=== PATIENT | female | born 1960 | race Caucasian/White ===

== ENCOUNTER 2016-04-17 16:16 | Inpatient (IN) | payer MEDICARE, MEDICAID ==
[2016-04-17 16:43] LABS: Hematocrit 41.7 % (37.0-47.0); Hemoglobin 14.3 gm/dL (12.5-16.0); Mean Cell Volume 87.4 fl (78-100); Mean Corpuscular Hgb Conc 34.3 g/dl (32-36); Mean Platelet Volume 9.6 fl (6.0-9.5); Neutrophil # 4.5 K/mm3 (1.3-6.0); Neutrophil % 61.9 % (42-75.0); Platelet Count 194 K/mm3 (150-450); Red Blood Count 4.77 M/mm3 (4.2-5.4); Red Cell Distribution Width 12.2 % (11.5-14.0); White Blood Count 7.3 K/mm3 (4.0-10.5)
[2016-04-17 16:58] LABS: Albumin * 3.8 gm/dl (3.4-5.0); Anion Gap 15.7 mmol/L (6.8-13.8); BUN/Creatinine Ratio 9.9 (9.0-21.6); Bilirubin, Total 0.3 mg/dL (0.0-1.1); Ca. Corrected For Albumin 9.1 mg/dL (8.4-10.2); Calcium * 9.3 mg/dL (7.9-10.9); Carbon Dioxide 25.2 mmol/L (24-32.6); Potassium 3.9 mmol/L (3.4-4.6); Total Protein 7.1 gm/dL (6.2-8.2)
[2016-04-17] MEDS ORDERED: KETOROLAC TROMETHAMINE 30 MG/ML VIAL IV ONE (17:38)
--- NOTE | 2016-04-17 17:42 | ERNOTE ---
<Elif Valdez - Last Filed: 04/17/16 20:00> Abdominal HPI - General Chief Complaint: Abdominal Pain Time Seen by Provider: 04/17/16 17:28 Source: patient, family Exam Limitations: no limitations - Immun/Allergies/Home Medications Immunizatons: IMMUNIZATION HX Immunizations Up to Date Yes History of Influenza Vaccine No Hx Pneumococcal Vaccination No Allergies/Adverse Reactions: Allergies levofloxacin [From Levaquin] Allergy (Verified 04/17/16 16:26) Hives pseudoephedrine HCl [From Sudafed] Adverse Reaction (Mild, Verified 04/17/16 16: 26) NEVER SLEEP Sulfa (Sulfonamide Antibiotics) Adverse Reaction (Mild, Verified 04/17/16 16:26) "GO ON A HIGH" Home Medications: HOME MEDICATIONS Atorvastatin Calcium [Lipitor] 10 mg PO HS 12/13/14 [Last Taken Unknown] Ferrous Sulfate 325 mg PO DAILY 12/13/14 [Last Taken Unknown] Acetaminophen [Tylenol] 1,000 mg PO Q6H PRN 05/25/15 [Last Taken Unknown] Sodium Chloride/Aloe Vera [[place] Saline Nasal Gel] 1 appl VG PRN PRN 06/25/15 [ Last Taken Unknown] Zinc Oxide 1 appl TP PRN PRN 06/25/15 [Last Taken Unknown] Ondansetron [Zofran Odt] 4 mg PO Q8H PRN #40 tab.rapdis 07/02/15 [Last Taken Unknown] Oxybutynin Chloride [Ditropan] 5 mg PO PRN PRN 04/18/16 [Last Taken Unknown] Saccharomyces Boulardii [Florastor] 250 mg PO TID 04/18/16 [Last Taken Unknown] - History of Present Illness Narrative: Patient started to have RLQ pain yesterday evening. She then started to have diarrhea and the abdominal pain resolved after about four hours and restarted this afternoon around 15:00, frequent watery bowel movements continue, nausea, no vomiting. Last year she was diagnosed with bladder cancer which was removed at [facility], last chris she had a urine leak from her bladder and had three different surgeries within a short time, no follow up for her cancer since. As far as she knows she still has her appendix Date (Duration): 04/16/16 Time (Timing): 18:00 Timing: intermittent Quality: severe Activities at Onset: none Associated Symptoms: Absent: diarrhea-gross blood, fever/chills, shortness of breath Review of Systems - Review of Systems Constitutional: Absent: recent illness, fever, chills Respiratory: Absent: shortness of breath, cough Cardiology: Absent: chest pain Gastrointestinal/Abdominal: Present: See HPI, nausea, diarrhea, abdominal pain. Absent: vomiting Genitourinary: Present: decreased urinary output Musculoskeletal: Absent: back pain Skin: Absent: rash Neurological: Absent: weakness, numbness - Patient's Past Medical History Patient History - Medical: Renal Failure, UTI'S, Other Patient History - Cardiac/Respiratory: No pertinent hx Patient History - Cancer: Bladder, Cervical Patient History - Surgical Procedures: Hysterectomy, Other, Urology Patient History - Other: None LMP (females 10-50): other - Family History Mother Family History - Medical: Father Family History - Medical: History Unknown, Diabetes Type 2 Insulin Dependent Family History - Cardiac/Respiratory: No pertinent hx - Social History Living Situations: home Abuse History: No History of abuse Psych History: No pertinent hx Alcohol Use: none Drug Use: none - Immunizations Immunizations Up to Date: Yes Hx Pneumococcal Vaccination: No History of Influenza Vaccine: No Physical Exam - Physical Exam General Appearance: Present: wd/wn, alert, mild distress Respiratory: Present: no respiratory distress, normal breath sounds, no accessory muscle use, lungs clear Cardiovascular/Chest: Present: regular rate, rhythm, no murmur Gastrointestinal/Abdominal: Present: soft, tenderness - mildly thoughout, max in RLQ and suprapubic Back Exam: Present: normal inspection, no CVA tenderness Extremity Exam: Present: no edema Neurological Exam: Present: alert, oriented, normal mood/affect Skin Exam: Present: normal color, warm/dry ED Progress - Results and Orders Patient's Lab Results:: I have reviewed the patient's lab results. - Vital Signs Patient's Vital Signs:: I have reviewed the patient's vital signs. Vital Signs: Vital Signs 04/17/16 16:20 Temperature 37.8 C H Pulse Rate 85 Respiratory 16 Rate Blood Pressure 146/95 O2 Sat by Pulse 97 Oximetry - X-Ray X-Ray #1 X-Ray: abdomen - dilated bowel loops, no air fluids levels Interpretation: Interp. by me - Progress/Reassessment Chief Complaint: Abdominal Pain Progress Note-Subjective: 04/17/16 18:57 pain better after toradol (08/21) explained test results - Transfer of Care Physician Sign Out: Elif Valdez Receiving Physician: Speedy Linder Departure - Departure Clinical Impression: Hematuria, Small bowel obstruction Disposition: [facility] Condition: Fair <Speedy Linder - Last Filed: 04/19/16 23:14> Abdominal HPI - Immun/Allergies/Home Medications Immunizatons: IMMUNIZATION HX Immunizations Up to Date Yes History of Influenza Vaccine No Hx Pneumococcal Vaccination No ED Progress - Results and Orders Patient's Lab Results:: I have reviewed the patient's lab results. Results and Orders: Laboratory Tests 04/17/16 04/17/16 04/17/16 16:26 16:36 16:36 WBC 7.3 Hgb 14.3 Hct 41.7 Plt Count 194 Sodium 143 H Potassium 3.9 Chloride 106 Carbon Dioxide 25.2 Anion Gap 15.7 H BUN 15 Creatinine 1.51 H D Est GFR (Non-Af Amer) 38 L D BUN/Creatinine Ratio 9.9 Random Glucose 108 Calcium 9.3 Calcium Adj for Albumin 9.1 Total Bilirubin 0.3 AST 14 ALT 31 Alkaline Phosphatase 78 Total Protein 7.1 Albumin 3.8 Amylase 60 Lipase 116 Urine Color Yellow Urine Appearance Clear Urine pH 5.5 Ur Specific [place] 1.025 Urine Protein Negative Urine Glucose (UA) Negative Urine Ketones Negative Urine Blood 250 H Urine Nitrate Negative Urine Bilirubin Negative Urine Urobilinogen Normal Ur Leukocyte Esterase Negative Urine RBC >50 H Urine WBC Trace H Ur Epithelial Cells 0-5 Urine Bacteria None seen Urine Culture Comments No culture indicated - Vital Signs Vital Signs: Vital Signs 04/17/16 04/17/16 04/17/16 16:20 18:33 19:18 Temperature 37.8 C H Pulse Rate 85 83 94 Respiratory 16 20 17 Rate Blood Pressure 146/95 115/69 120/71 O2 Sat by Pulse 97 95 93 Oximetry - CT/Ultrasound CT/Ultrasound Narrative: CT abd/ pelvis with IV and oral contrast. Bilateral atelectasis, free perihepatic fluid. Upper abdominal organs normal. numberoud distended loops of small bowel some demonstrating wall thickening and inflammatory change. focal narrowing and a small bowel feces sign within the RLQ probably terminal ileum. Possibility of early bowel obstruction cannot be excluded. Free fluid within the pelvis. Circumferential bladder wall thickening. No free air. appendix is normal. - Progress/Reassessment Progress Note-Subjective: 04/17/16 20:43 Pt having more pain, 1 mg hydromorphone ordered. 04/17/16 22:44 spoke with Margarito WHITMOREP hospitalist, she agrees with admit.
--- OUTSIDE RECORDS SUMMARY | 2016-04-17 17:46 | XMS REPORT | Continuity of Care Document ---
:1960 Author Organization [facility] [place] [address] Care Team Providers Name Role Phone Unavailable Primary Care Provider Unavailable Source Comments This disclosure is being made pursuant to the [employer] program and maynot contain all information available regarding this patient.[facility] Active Allergies and Adverse Reactions Not on File Current Medications Be aware that medications may not be up to date as of this document. Alwaysverify current medications with the patient. Not on file Active Problems Not on file Social History Tobacco Use Types Packs/Day Years Used Date Never Assessed Plan of Care Health Maintenance Due Date Last Done Comments Tetanus/Pertussis (1 - Tdap) 1981 Pap Smear 06/16/1983 Mammogram 2002 Colonoscopy 2012 Well Adult Visit 2012 Retired-INFLUENZA VACCINE 10/13/2014 Results from Last 3 Months Not on file
--- OUTSIDE RECORDS SUMMARY | 2016-04-17 17:46 | XMS REPORT | Continuity of Care Document ---
:1960 Author Organization [facility] ([facility]) [place] [address] Phone [phone] Care Team Providers Name Role Phone Jorge Marshall Primary Care Provider [phone] Source Comments This disclosure is being made pursuant to the Care Everywhere program, applicable federal and state laws, and may not contain all informaitonavailable regarding this patient.[facility] ([facility]) Active Allergies and Adverse Reactions Allergen Noted Date Severity Reactions Comments Levofloxacin 07/22/2015 OTHER cramps Pseudoephedrine Hcl 10/16/2008 Agitation Sulfadoxine Dizziness Current Medications Prescription Sig. Disp. Refills Start Date End Date Status ferrous sulfate 325 mg Take 650 mg by Active (65 mg iron) tablet mouth daily. atorvastatin 10 mg Take 10 mg by Active tablet mouth every evening. acetaminophen 500 mg Take 1,000 mg by Active tablet mouth every 6 hours as needed. docusate 100 mg capsule Take 1 capsule 60 capsule 0 06/24/2015 Active (100 mg total) by mouth 2 times daily as needed. oxybutynin 5 mg tablet Take 1 tablet (5 90 tablet 3 06/24/2015 Active mg total) by mouth 3 times daily as needed. 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 She received chemotherapy and radiation. She completed 4500 cGy to the pelvis on 10/16/02. She then had two tandem and ovoid placements, completing this in 11/2002. Resolved Problems Problem Noted Date Resolved Date Peritonitis 06/28/2015 01/07/2016 Pyelonephritis 06/22/2015 01/07/2016 Perforation of bladder 06/10/2015 01/07/2016 Lesion of bladder 06/27/2013 01/07/2016 Vaginal discomfort 10/15/2012 01/07/2016 Headache(784.0) 01/07/2007 10/16/2008 Social History Tobacco Use Types Packs/Day Years Used Date Former Smoker 1.5 5 Quit: 02/23/1994 Smokeless Tobacco: Never Used Tobacco Cessation:Counseling Given: Yes Comments:Quit 1994 Alcohol Use Drinks/Week oz/Week Comments No Last Filed Vital Signs Vital Sign Reading Time Taken Blood Pressure 121/81 01/03/2016 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 Pulse 86 01/03/2016 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 Temperature 36.1 C (97 F) 01/03/2016 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 Respiratory Rate 22 07/22/2015 2:43 PM CDT Height 1.626 m (5' 4") 06/10/2015 6:20 PM CDT Weight 59.3 kg (130 lb 11.7 oz) 07/22/2015 4:56 PM CDT Body Mass Index 22.43 07/22/2015 4:56 PM CDT Oxygen Saturation 97% 07/22/2015 2:43 PM CDT Plan of Care Patient Goal Type Goal Diet Increase water intake Date Type Specialty Providers Description 09/25/2016 Appointment Urology Kvng Lucio MD Subj: Appointment Scheduled [address] [phone] (Fax) Health Maintenance Due Date Last Done Comments HCV Screening 1960 Hepatitis B Vaccine (1 of 3 1960 - Primary Series) Tdap Vaccine 1973 MMR Vaccine 1980 Td Vaccine 1980 Pneumococcal Vaccine (1 of 3 1981 - PCV13) Mammogram 01/10/2008 01/09/2007 FOBT Colon Cancer Screening 2012 03/07/2010 Cervical Cancer Screening 12/30/2012 12/30/2009, Additional history exists 10/16/2008, 10/31/2007 Colonoscopy 04/12/2014 04/12/2004 Lipid Disorder Screening 02/23/2015 02/23/2010 Influenza Vaccine: Seasonal 09/13/2015 (#1) Results from Last 3 Months Not on file
[2016-04-17] MEDS ORDERED: KETOROLAC TROMETHAMINE 30 MG/ML VIAL ONE (17:48)
[2016-04-17 18:12] LABS: Urine Appearance Clear; Urine Bacteria None Seen; Urine Bilirubin Negative (NEGATIVE); Urine Blood 250 /ul (NEGATIVE); Urine Color Yellow; Urine Ketone Negative (NEGATIVE); Urine Nitrite Negative (NEGATIVE); Urine Protein Negative (NEGATIVE); Urine RBC >50 /hpf (0-5); Urine Specific Gravity 1.025 SP.GR. (1.005-1.010); Urine Urobilinogen Normal (NORMAL); Urine WBC TRACE /hpf (0-5); Urine pH 5.5 pH (5.0-7.0)
[2016-04-17] MEDS ORDERED: NORMAL SALINE 1,000 ML IV ONE (18:56)
[2016-04-17] MEDS ORDERED: ONDANSETRON HCL/PF 2 MG/ML VIAL IV ONE (18:56)
[2016-04-17] MEDS ORDERED: DIATRIZOATE MEGLU/DIATRIZO SOD 30 ML BTL PO ONE ×2 (18:56)
[2016-04-17] MEDS ORDERED: HYDROmorphone HCL 1 MG/ML DISP.SYRIN IV ONE ×3 (18:56→22:39)
[2016-04-17] MEDS ORDERED: DIATRIZOATE MEGLU/DIATRIZO SOD 30 ML BTL ONE (18:58)
[2016-04-17] MEDS ORDERED: ONDANSETRON HCL/PF 2 MG/ML VIAL ONE (19:00)
[2016-04-17] MEDS ORDERED: HYDROmorphone HCL 1 MG/ML DISP.SYRIN ONE ×3 (19:00→22:39)
--- OUTSIDE RECORDS SUMMARY | 2016-04-17 22:38 | XMS REPORT | Continuity of Care Document ---
:1960 Author Organization [facility] ([facility]) [place] [address] Phone [phone] Care Team Providers Name Role Phone Jorge Marshall Primary Care Provider [phone] Source Comments This disclosure is being made pursuant to the Care Everywhere program, applicable federal and state laws, and may not contain all informaitonavailable regarding this patient.[facility] ([facility]) Active Allergies and Adverse Reactions Allergen Noted [...] Taken Blood Pressure 121/81 01/03/2016 12:47 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
--- OUTSIDE RECORDS SUMMARY | 2016-04-17 22:38 | XMS REPORT | Continuity of Care Document ---
:1960 Author Organization [facility] [place] [address] Care Team Providers Name Role Phone Unavailable Primary Care Provider Unavailable Source Comments This disclosure is being made pursuant to the [employer] program and maynot contain all information available regarding this patient.[facility] Active Allergies and Adverse Reactions Not on [...] (1 - Tdap) 1981 Pap Smear 06/16/1983 Colonoscopy 2012 Mammogram 2012 Well Adult Visit 2012 Influenza Immunization (#1) 2015 Results from Last 3 Months Not on file
[2016-04-17] MEDS ORDERED: ONDANSETRON HCL/PF 2 MG/ML VIAL IV PRN (22:57)
[2016-04-17] MEDS ORDERED: DEXTROSE 5%-NORMAL SALINE 1,000 ML IV SCH (23:00)
[2016-04-18] MEDS: PANTOPRAZOLE SODIUM 40 MG in NORMAL SALINE 100 ML IV SCH ×2 (00:44→23:13)
--- NOTE | 2016-04-18 00:54 | HP ---
Chief Complaint - Chief Complaint Date of Service: 04/18/16 Time of Service: 00:19 Chief Complaint: Abdominal pain History of Present Illness: 55 years old female adm to the hospital with reports of abdominal pain that began yesterday, accompanied with nausea and diarrhea that have been self resolved before coming to the hospital. pt stated while in ER she had 1 episode emesis. PMH significant for bladder and cervical cancer, radiation colitis, hypothyroidism, UTI, perforated bladder, ULISES, sepsis and c-diff. in ER CT ABD: findings suggestive for diffused enteritis and possibility of early obstruction. Free intra-abdominal and pelvic fluid. no free air or abscess. Plan of care discussed with pt she verbalized understanding and agrees. - Patient's Past Medical History Patient History - Medical: Renal Failure, UTI'S, Other - radiation colitis Patient History - Cardiac/Respiratory: No pertinent hx, Hyperlipidemia Patient History - Cancer: Bladder, Cervical, Radiation Therapy Patient History - Surgical Procedures: Hysterectomy, Other - 06/27 bladder repair, BL nephrostomy tubes, Urology Patient History - Other: None LMP (females 10-50): Menopausal - Family History Mother Family History - Medical: , Diabetes Type 2 Insulin Dependent Father Family History - Medical: Diabetes Type 2 Insulin Dependent Family History - Cardiac/Respiratory: No pertinent hx, Hypertension Family History - Cancer: Prostate - Social History Living Situations: alone Abuse History: No History of abuse Psych History: No pertinent hx Smoking Status: Former smoker Have you smoked in the past 12 months: No Do you dip or chew tobacco: No Smoking Stop Date: 02/13/96 Patient requests Smoking Cessation Consult: No Initiate information on Smoking Cessation: No Alcohol Use: none Drug Use: none - Immunizations Immunizations Up to Date: Yes Hx Pneumococcal Vaccination: No History of Influenza Vaccine: No Review Of Systems (GEN) - Review of Systems Generalized/Overall Review: Present: No Symptoms Reported EENTM: Present: No Symptoms Reported Respiratory: Present: No Symptoms Reported Cardiac: Present: No Symptoms Reported Abdominal: Present: Nausea, Vomiting, Abdominal Pain, Diarrhea Genitourinary: Present: Incontinent Musculoskeletal: Present: Other - muscle weakness Neurological: Present: Weakness Skin: Present: No Symptoms Reported Endocrine: Present: No Symptoms Reported Allergies/Adverse Reactions: Allergies Allergy/AdvReac Type Severity Reaction Status Date / Time levofloxacin [From Levaquin] Allergy Hives Verified 04/17/16 16:26 pseudoephedrine HCl AdvReac Mild NEVER SLEEP Verified 04/17/16 16:26 [From Sudafed] Sulfa (Sulfonamide AdvReac Mild "GO ON A Verified 04/17/16 16:26 Antibiotics) HIGH" Home Medications: HOME MEDICATIONS Atorvastatin Calcium [Lipitor] 10 mg PO HS 12/13/14 [Last Taken Unknown] Ferrous Sulfate 325 mg PO DAILY 12/13/14 [Last Taken Unknown] Acetaminophen [Tylenol] 1,000 mg PO Q6H PRN 05/25/15 [Last Taken Unknown] Docusate Sodium [Colace] 100 mg PO BID 06/25/15 [Last Taken Unknown] Sodium Chloride/Aloe Vera [[place] Saline Nasal Gel] 1 appl VG PRN PRN 06/25/15 [ Last Taken Unknown] Zinc Oxide 1 appl TP TID 06/25/15 [Last Taken Unknown] Hydromorphone HCl [Dilaudid] 2 mg PO Q4H PRN #40 tablet 07/02/15 [Last Taken Unknown] Ondansetron [Zofran Odt] 4 mg PO Q8H PRN #40 tab.rapdis 07/02/15 [Last Taken Unknown] Oxybutynin Chloride [Ditropan] 5 mg PO TID PRN #90 tablet 07/02/15 [Last Taken Unknown] Saccharomyces Boulardii [Florastor] 250 mg PO BID #60 capsule 07/02/15 [Last Taken Unknown] Fluticasone Propionate [24 Hour Allergy Relief] 15.8 ml NS 10/06/15 [Last Taken Unknown] Exam - Exam Vital Signs: Vital Signs - Last Taken Temp 36.5 C 04/17/16 22:55 Pulse 77 04/17/16 22:55 Resp 18 04/17/16 22:55 BP 118/69 04/17/16 22:55 Pulse Ox 92 04/17/16 22:55 Constitutional: Present: Alert, Oriented x3, Cooperative, Well developed, No distress, Young, Looks Older than stated age ENT Exam: Present: moist mucous membranes Eye Exam: bilateral eye: PERRL Neck: Present: full range of motion Back Exam: Present: no CVA tenderness Breasts: Present: Exam deferred Respiratory: Present: chest non-tender, lungs clear, normal breath sounds, no respiratory distress Cardiovascular/Chest: Present: normal peripheral pulses, regular rate, rhythm, no chest tenderness, no edema Peripheral Pulses: dorsalis-pedis (R): 2+, dorsalis-pedis (L): 2+ Abdomen: Present: soft, nontender, nondistended, no rebound tenderness, other - hypoactive /Rectal: Present: Exam deferred Extremity: Present: normal range of motion, non-tender, normal inspection, no pedal edema, no calf tenderness Skin Exam: Present: normal color, warm/dry, no cyanosis Neurologic: Present: oriented x 3 Appearance: Present: appropriate appearance Eye contact: Present: cooperative, good eye contact Thoughts: Present: normal thought pattern Diagnostic Studies: Laboratory Results WBC 7.3 K/mm3 (4.0-10.5) 04/17/16 16:36 RBC 4.77 M/mm3 (4.2-5.4) 04/17/16 16:36 Hgb 14.3 gm/dL (12.5-16.0) 04/17/16 16:36 Hct 41.7 % (37.0-47.0) 04/17/16 16:36 MCV 87.4 fl (78-100) 04/17/16 16:36 MCH 30.0 pg (27-31) 04/17/16 16:36 MCHC 34.3 g/dl (32-36) 04/17/16 16:36 RDW 12.2 % (11.5-14.0) 04/17/16 16:36 Plt Count 194 K/mm3 (150-450) 04/17/16 16:36 MPV 9.6 fl (6.0-9.5) H 04/17/16 16:36 Immature Gran % (Auto) 0.50 % (0.001-0.429) H 04/17/16 16:36 Immature Gran # (Auto) 0.04 K/mm3 (0.000-0.0310) H 04/17/16 16:36 Neutrophils % 61.9 % (42-75.0) 04/17/16 16:36 Lymphocytes % 32.3 % (20-51) 04/17/16 16:36 Monocytes % 4.4 % (0.0-9) 04/17/16 16:36 Eosinophils % 0.5 % (0.0-3.0) 04/17/16 16:36 Basophils % 0.4 % (0.0-1.0) 04/17/16 16:36 Nucleated RBC % 0.0 k/mm3 (0-1) 04/17/16 16:36 Neutrophils # 4.5 K/mm3 (1.3-6.0) 04/17/16 16:36 Lymphocytes # 2.4 k/mm3 (1.5-3.5) 04/17/16 16:36 Monocytes # 0.3 k/mm3 (0.0-1.0) 04/17/16 16:36 Eosinophils # 0.0 k/mm3 (0.0-0.7) 04/17/16 16:36 Absolute Basophils 0.0 k/mm3 (0.0-0.1) 04/17/16 16:36 Sodium 143 mmol/L (132-142) H 04/17/16 16:36 Plasma Sodium 143 mmol/L (130-142) H 04/17/16 16:36 Potassium 3.9 mmol/L (3.4-4.6) 04/17/16 16:36 Chloride 106 mmol/L (97-106) 04/17/16 16:36 Carbon Dioxide 25.2 mmol/L (24-32.6) 04/17/16 16:36 Anion Gap 15.7 mmol/L (6.8-13.8) H 04/17/16 16:36 BUN 15 mg/dL (3-23) 04/17/16 16:36 Creatinine 1.51 mg/dL (0.4-1.4) H D 04/17/16 16:36 Est GFR (Non-Af Amer) 38 mL/min (60-130) L D 04/17/16 16:36 BUN/Creatinine Ratio 9.9 (9.0-21.6) 04/17/16 16:36 Random Glucose 108 mg/dL (70-110) 04/17/16 16:36 Calcium 9.3 mg/dL (7.9-10.9) 04/17/16 16:36 Calcium Adj for Albumin 9.1 mg/dL (8.4-10.2) 04/17/16 16:36 Total Bilirubin 0.3 mg/dL (0.0-1.1) 04/17/16 16:36 AST 14 U/L (0-48) 04/17/16 16:36 ALT 31 U/L (19-67) 04/17/16 16:36 Alkaline Phosphatase 78 U/L (50-170) 04/17/16 16:36 Total Protein 7.1 gm/dL (6.2-8.2) 04/17/16 16:36 Albumin 3.8 gm/dl (3.4-5.0) 04/17/16 16:36 Amylase 60 U/L (25-115) 04/17/16 16:36 Lipase 116 U/L (73-393) 04/17/16 16:36 Urine Color Yellow 04/17/16 16:26 Urine Appearance Clear 04/17/16 16:26 Urine pH 5.5 pH (5.0-7.0) 04/17/16 16:26 Ur Specific [place] 1.025 SP.GR. (1.005-1.010) 04/17/16 16:26 Urine Protein Negative mg/dL (NEGATIVE) 04/17/16 16:26 Urine Glucose (UA) Negative mg/dL (NEGATIVE) 04/17/16 16:26 Urine Ketones Negative mg/dL (NEGATIVE) 04/17/16 16:26 Urine Blood 250 /ul (NEGATIVE) H 04/17/16 16:26 Urine Nitrate Negative (NEGATIVE) 04/17/16 16:26 Urine Bilirubin Negative mg/dl (NEGATIVE) 04/17/16 16:26 Urine Urobilinogen Normal EU/dl (NORMAL) 04/17/16 16:26 Ur Leukocyte Esterase Negative /ul (NEGATIVE) 04/17/16 16:26 Urine RBC >50 /hpf (0-5) H 04/17/16 16:26 Urine WBC Trace /hpf (0-5) H 04/17/16 16:26 Ur Epithelial Cells 0-5 /hpf (0-5) 04/17/16 16:26 Urine Bacteria None seen (NONE) 04/17/16 16:26 Urine Culture Comments No culture indicated 04/17/16 16:26 Assessment/Plan - Narrative Narrative: Small bowel obstruction: probable adhesion from multiple abdominal surgeries CT ABD:Findings suggestive of diffuse enteritis and the possibility of early obstruction Keep NPO and insert NGT Hydration with D4 NS 125ml/hr On adm Bun/cre 15/1.51---> monitor cmp in am Protonix 40 mg IV daily IV pain medication Chronic Generalized weakness pt was referred to physical therapy by PCP and have been following up. Continue with rolling walker Diarrhea : Likely due to colitis pt self report that last bowel movement was before coming to ER Collect specimen if pt have bowel movement. Bladder cancer S/P radiation in remission Code status: Full VTE ppx SCD and ambulate in the halls GI ppx: protonix - Assessment/Plan (1) Small bowel obstruction Problem: Acute (2) Bladder cancer Problem: Chronic (3) Hypertension Problem: Chronic (4) Weakness Problem: Chronic
[2016-04-18] MEDS ORDERED: POTASSIUM CHLORIDE 10 MEQ in DEXTROSE 5%-NORMAL SALINE 1,000 ML IV SCH (00:58)
[2016-04-18] MEDS ORDERED: POTASSIUM CHLORIDE 20 MEQ in DEXTROSE 5%-NORMAL SALINE 1,000 ML IV SCH ×7 (01:01→02:30)
[2016-04-18] MEDS: HYDROmorphone HCL 1 MG/ML DISP.SYRIN IV PRN ×2 (01:09→08:28)
[2016-04-18] MEDS ORDERED: OXYBUTYNIN CHLORIDE 5 MG TABLET PO PRN (01:10)
[2016-04-18] MEDS ORDERED: ACETAMINOPHEN 500 MG TABLET PO PRN (01:10)
[2016-04-18 07:39] LABS: Albumin * 3.6 gm/dl (3.4-5.0); Anion Gap 14.8 mmol/L (6.8-13.8); BUN/Creatinine Ratio 7.6 (9.0-21.6); Bilirubin, Total 0.5 mg/dL (0.0-1.1); Ca. Corrected For Albumin 8.8 mg/dL (8.4-10.2); Calcium * 8.8 mg/dL (7.9-10.9); Carbon Dioxide 24.6 mmol/L (24-32.6); Potassium 4.4 mmol/L (3.4-4.6); Total Protein 6.7 gm/dL (6.2-8.2)
[2016-04-18] MEDS ORDERED: NORMAL SALINE 1,000 ML IV ONE (08:31)
[2016-04-18] MEDS ORDERED: FERROUS SULFATE 325 MG TABLET PO SCH (09:00)
[2016-04-18] MEDS: SACCHAROMYCES BOULARDII 250 MG CAPSULE PO SCH (12:29)
[2016-04-18] MEDS: POTASSIUM CHLORIDE 20 MEQ in DEXTROSE 5%-NORMAL SALINE 1,000 ML IV SCH ×2 (13:11→21:32)
[2016-04-18] MEDS: HYDROmorphone HCL 2 MG/ML VIAL IV PRN ×3 (15:16→23:30)
[2016-04-18] MEDS ORDERED: SODIUM CHLORIDE TP PRN (16:51)
[2016-04-18] MEDS ORDERED: [UNRECOGNIZED DRUG - OTHER] TP PRN (16:51)
[2016-04-18] MEDS ORDERED: ONDANSETRON 4 MG TAB.RAPDIS PO PRN (16:51)
[2016-04-18] MEDS ORDERED: ZINC OXIDE 60 APPL TUBE TP PRN (16:56)
[2016-04-18] MEDS ORDERED: ATORVASTATIN CALCIUM 10 MG TABLET PO SCH (21:00)
[2016-04-18] MEDS ORDERED: ROSUVASTATIN CALCIUM 10 MG TABLET PO SCH (21:00)
[2016-04-18] MEDS ORDERED: BISACODYL 10 MG SUPP.RECT RC PRN (22:55)
[2016-04-19] MEDS: HYDROmorphone HCL 2 MG/ML VIAL IV PRN ×3 (03:24→11:58)
[2016-04-19] MEDS: POTASSIUM CHLORIDE 20 MEQ in DEXTROSE 5%-NORMAL SALINE 1,000 ML IV SCH (05:49)
[2016-04-19] MEDS: SACCHAROMYCES BOULARDII 250 MG CAPSULE PO SCH ×5 (06:02→19:53)
[2016-04-19 06:14] LABS: Hematocrit 40.5 % (37.0-47.0); Hemoglobin 13.3 gm/dL (12.5-16.0); Mean Cell Volume 91.8 fl (78-100); Mean Corpuscular Hemoglobin 30.2 pg (27-31); Mean Corpuscular Hgb Conc 32.8 g/dl (32-36); Mean Platelet Volume 9.8 fl (6.0-9.5); Platelet Count 194 K/mm3 (150-450); Red Blood Count 4.41 M/mm3 (4.2-5.4); Red Cell Distribution Width 13.2 % (11.5-14.0); White Blood Count 8.4 K/mm3 (4.0-10.5)
[2016-04-19 06:28] LABS: Albumin * 3.4 gm/dl (3.4-5.0); Anion Gap 19.1 mmol/L (6.8-13.8); BUN/Creatinine Ratio 5.9 (9.0-21.6); Bilirubin Direct 0.1 mg/dL (0.0-0.3); Bilirubin, Total 0.5 mg/dL (0.0-1.1); Bilirubin,Indirect 0.4 mg/dL (0.1-0.7); Calcium * 8.7 mg/dL (7.9-10.9); Carbon Dioxide 18.5 mmol/L (24-32.6); Estimated Creat Clear 14.5; Potassium 5.6 mmol/L (3.4-4.6); Total Protein 6.8 gm/dL (6.2-8.2)
[2016-04-19] MEDS ORDERED: NORMAL SALINE 1,000 ML IV ONE (08:53)
[2016-04-19] MEDS ORDERED: HYDROmorphone HCL 2 MG TABLET PO PRN (09:13)
--- NOTE | 2016-04-19 09:43 | PN ---
Subjective - Date and Time Seen Date: 04/19/16 Time: 09:41 Subjective Narrative: Patient seen and examined at bedside. No acute issues overnight. Abdominal x- ray improved this AM. Plan to discontinue NG today and advance diet as tolerated. Objective - Review of Systems Generalized/Overall Review: Reports: Weakness, Fatigue. Denies: Fever EENTM: Reports: No Symptoms Reported Respiratory: Reports: No Symptoms Reported Cardiac: Reports: No Symptoms Reported Abdominal: Reports: Nausea, Abdominal Pain Genitourinary Symptoms: Reports: No Symptoms Reported Musculoskeletal Complaints: Reports: No Symptoms Reported Neurological: Reports: Anxiety Skin: Reports: No Symptoms Reported Endocrine: Reports: No Symptoms Reported - Vitals Vitals: Last Vital Signs Temp 36.7 C 04/19/16 07:34 Pulse 100 04/19/16 07:34 Resp 20 04/19/16 07:34 BP 144/72 04/19/16 07:34 Pulse Ox 93 04/19/16 07:34 - Abnormal Lab Findings Abnormal Lab Findings: Abnormal Lab Results 04/19/16 04/19/16 Range/Units 06:05 06:05 MPV 9.8 H (6.0-9.5) fl Sodium 144 H (132-142) mmol/L Plasma Sodium 145 H (130-142) mmol/L Potassium 5.6 H D (3.4-4.6) mmol/L Chloride 112 H (97-106) mmol/L Carbon Dioxide 18.5 L (24-32.6) mmol/L Anion Gap 19.1 H (6.8-13.8) mmol/L Creatinine 3.72 H D (0.4-1.4) mg/dL Est GFR (Non-Af Amer) 14 L D (60-130) mL/min BUN/Creatinine Ratio 5.9 L (9.0-21.6) Random Glucose 145 H (70-110) mg/dL - Exam Constitutional: Present: Alert, Oriented x3, Cooperative, Well developed, Well nourished, Mild distress - Secondary to abdominal pain ENT Exam: Present: hearing grossly normal, dry mucous membranes Respiratory: Present: lungs clear, normal breath sounds, no respiratory distress , no accessory muscle use Cardiovascular/Chest: Present: regular rate, rhythm, no edema, no murmur Abdomen: Present: soft, tender, distended. Absent: rigidity Extremity: Present: normal inspection Skin Exam: Present: normal color, warm/dry Neurologic: Present: no motor/sensory deficits, alert, normal mood/affect, oriented x 3 Appearance: Present: appropriate appearance, appropriate insight, neat, no memory impairment Eye contact: Present: cooperative, good eye contact, normal speech Thoughts: Present: normal thought pattern, no apparent hallucination Assessment/Plan Plan Narrative: IMPRESSION & PLAN: Partial Small Bowel Obstruction -Patient has a history of prior obstructions and it is most likely secondary to her chronic radiation enteritis as well as adhesion from her prior multiple abdominal surgeries. -Abd X-ray this AM shows improvement/resolution -Discontinue NG tube -Start clear liquid diet and advance as tolerated. Acute Renal Failure -Unclear etiology at this time. -Discontinue current IVFs. Give NS bolus followed by NS @ 200cc/hr -Renal US ordered -UA with culture if indicated and urine studies ordered for further evaluation of ARF. 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 Bladder Cancer: Diagnosed in 2013 and patient underwent surgery (no chemo or radiation). Follows [facility] Urology at the [facility]. Patient with hematuria on recent UAs. Patient will need to follow-up with urology for further evaluation after discharge. Iron Deficiency Anemia: Resolved. Plan to discontinue ferrous sulfate on discharge. Chronic Pain Syndrome: Chronic neck pain; patient takes PO hydrocodone at home but states she usually only takes it a couple times a month. Hyperlipidemia: Continue atorvastatin at discharge. Code status: Full Code VTE ppx: SCDs. Start heparin SQ given her ARF. Disposition: Await urine studies. Hopefully discharge home within the next 2-3 days once patient is tolerating a diet and her kidney function improves. - Problems/Diagnosis (1) Acute renal failure (ARF) Problem: Acute (2) Partial small bowel obstruction Problem: Acute (3) Hyperkalemia Problem: Acute (4) Radiation enteritis Problem: Chronic
[2016-04-19] MEDS: NORMAL SALINE 1,000 ML IV SCH ×3 (10:44→21:34)
[2016-04-19] MEDS: HEPARIN SODIUM,PORCINE 5,000 UNITS/ML VIAL SC SCH ×4 (10:48→22:35)
[2016-04-19] MEDS ORDERED: ZINC OXIDE 60 APPL TUBE TP PRN (11:33)
[2016-04-19] MEDS ORDERED: BISACODYL 10 MG SUPP.RECT RC ONE (11:35)
[2016-04-19] MEDS ORDERED: METOCLOPRAMIDE HCL 10 MG TABLET PO PRN (11:36)
[2016-04-19] MEDS ORDERED: LORazepam 2 MG/ML DISP.SYRIN IV PRN (11:47)
[2016-04-19] MEDS ORDERED: diphenhydrAMINE HCL 50 MG/ML VIAL IV PRN (13:22)
[2016-04-19 15:52] LABS: Urine Bilirubin Negative (NEGATIVE); Urine Blood 25 /ul (NEGATIVE); Urine Ketone Negative (NEGATIVE); Urine Nitrite Negative (NEGATIVE); Urine Protein Negative (NEGATIVE); Urine Specific Gravity 1.025 SP.GR. (1.005-1.010); Urine Urobilinogen Normal (NORMAL); Urine pH 5.5 pH (5.0-7.0)
[2016-04-19 16:13] LABS: Urine Appearance Clear; Urine Bacteria 1+; Urine Color Yellow; Urine RBC None Seen /hpf (0-5); Urine WBC None Seen /hpf (0-5)
[2016-04-19 16:14] LABS: Urine Hyaline Cast 0-5 /LPF
[2016-04-19] MEDS ORDERED: MAGNESIUM CITRATE 300 ML BTL PO ONE (18:00)
[2016-04-19 18:01] LABS: Hematocrit 42.1 % (37.0-47.0); Hemoglobin 13.6 gm/dL (12.5-16.0); Mean Cell Volume 92.5 fl (78-100); Mean Corpuscular Hemoglobin 29.9 pg (27-31); Mean Corpuscular Hgb Conc 32.3 g/dl (32-36); Mean Platelet Volume 9.7 fl (6.0-9.5); Neutrophil % 82.8 % (42-75.0); Platelet Count 174 K/mm3 (150-450); Red Blood Count 4.55 M/mm3 (4.2-5.4); Red Cell Distribution Width 13.3 % (11.5-14.0); White Blood Count 8.4 K/mm3 (4.0-10.5)
[2016-04-19] MEDS ORDERED: ALBUTEROL SULFATE 2.5 MG/0.5 ML VIAL.NEB IH ONE (23:54)
[2016-04-19] MEDS: ALBUTEROL SULFATE 2.5 MG/3 ML VIAL.NEB IH PRN (23:56)
[2016-04-20] MEDS ORDERED: ALBUTEROL SULFATE 2.5 MG/0.5 ML VIAL.NEB IH ONE ×2 (01:58→06:28)
[2016-04-20] MEDS: ALBUTEROL SULFATE 2.5 MG/3 ML VIAL.NEB IH PRN ×2 (02:01→06:31)
[2016-04-20] MEDS: NORMAL SALINE 1,000 ML IV SCH (02:37)
[2016-04-20 06:18] LABS: Anion Gap 25.3 mmol/L (6.8-13.8); BUN/Creatinine Ratio 5.5 (9.0-21.6); Calcium * 8.9 mg/dL (7.9-10.9); Estimated Creat Clear 9.6; Potassium 5.3 mmol/L (3.4-4.6)
[2016-04-20 06:57] VITALS: BP 169/90
[2016-04-20] MEDS ORDERED: PIPERACILLIN SODIUM/TAZOBACTAM 2.25 GM in DEXTROSE 5 % IN WATER 100 ML IV STA ×2 (09:08)
--- NOTE | 2016-04-21 11:36 | PROC NOTE ---
ED Procedures - Intubation Time of Intubation: 09:15 - Procedure completed on 04/20/2016 Intubation Method: endotrachial with venti Tube Size (cm): 8.0 Medications: Other - Etomidate 20mg IVP Breath Sounds after Intubation: equal Intubation Complications: apparent aspiration, other - There was a significant amount of feculent emesis which was suctioned during intubation but it is very likely that the patient aspirated this during intubation. Patient was started on Zosyn prior to leaving [facility]. Post Intubation Xray: Yes Progress/X-Ray Impression: First CXR showed ETT at the level of the natalie. ETT was pulled back 2cm and another x-ray was performed which confirmed appropriate placement of the ETT 2cm above the natalie.
--- NOTE | 2016-04-21 11:40 | DS ---
Transfer Discharge Summary - Diagnosis(s)/Problems (1) Acute renal failure (ARF) Problem: Acute (2) Partial small bowel obstruction Problem: Acute (3) Hyperkalemia Problem: Acute (4) Radiation enteritis Problem: Chronic (5) Acute abdomen Problem: Acute (6) Hemoperitoneum Problem: Acute (7) Acute respiratory failure Problem: Acute (8) Lactic acidosis Problem: Acute - Course Description of Stay: ADMISSION DATE: 04.18.2016 TRANSFER DISCHARGE DATE: 04.20.2016 ADMISSION HPI: Written by JANIE Cagle: 55 years old female adm to the hospital with reports of abdominal pain that began yesterday, accompanied with nausea and diarrhea that have been self resolved before coming to the hospital. pt stated while in ER she had 1 episode emesis. PMH significant for bladder and cervical cancer, radiation colitis,hypothyroidism, UTI, perforated bladder, ULISES, sepsis and c-diff. in ER CT ABD: findings suggestive for diffused enteritis and possibility of early obstruction. Free intra-abdominal and pelvic fluid. no free air or abscess. Plan of care discussed with pt she verbalized understanding and agrees. PROBLEM BASED HOSPITAL COURSE: Partial Small Bowel Obstruction -Patient has a history of prior obstructions and it is most likely secondary to her chronic radiation enteritis as well as adhesion from her prior multiple abdominal surgeries. -Abd X-ray on 04.19.2016 showed improvement/resolution so NG was discontinued and patient was started on a clear liquid diet. Acute Renal Failure -Patient given boluses of IVFs during her admission and on 04.19.2016 her IVF was increased to NS @ 200cc/hr. -Renal US ordered but essentially unrevealing as to the etiology of the patients ARF -UA with culture if indicated and urine studies ordered for further evaluation of ARF. 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 Bladder Cancer: Diagnosed in 2013 and patient underwent surgery (no chemo or radiation). Follows with Urology at the [facility]. Patient with hematuria on recent UAs. Patient will need to follow-up with urology for further evaluation after discharge. Iron Deficiency Anemia: Patient on ferrous sulfate as a home medication. Chronic Pain Syndrome: Chronic neck pain; patient takes PO hydrocodone at home but states she usually only takes it a couple times a month. Hyperlipidemia: Continue atorvastatin at discharge. Code status: Full Code VTE ppx: SCDs. Heparin SQ (no Lovenox secondary to ARF) HOSPITAL COURSE LEADING TO TRANSFER: The patient was improving on 04.19.2016 from a SBO standpoint. However, her ULISES was worsening and continued to worsen despite IVF boluses and aggressive IVF hydration. The AM of 04.20.2016, the patients kidney function continued to worsen. Nursing also noticed the patient to be tachypnic with a respiratory rate in the 30s and she was becoming more lethargic. I was called after a rapid response was called on the patient. I came and evaluated the patient at bedside. Abdomen was now acute on exam with rigidity and patient moaning and calling out in pain with minimal palpation. Additional orders placed for ABGs, abdominal x-ray and lactic acid. I called the [facility] to transfer the patient to a higher level of care. I discussed the case with Dr. Kinney and we decided to get a CT of the patients abdomen and pelvis without contrast (given her ARF) prior to transfer. However, during the CT scan, the patients condition continued to deteriorate and the patient ended up getting intubated prior to transfer (see procedure note for details on intubation). I discussed the CT with our radiologist, Dr. Black, and he told me that it appears that the patient has a large hemoperitoneum. Patient was transferred to the [facility] by air ambulance in critical condition. Critical Care Time: 07 to 0940 (2 hours and 20 minutes) Procedures Performed: see notes below Procedures: Intubation prior to transfer. Please see procedure note for details. - Medications Medications: Active Medications Discontinued Medications Acetaminophen (Tylenol) 1,000 mg PO Q6H PRN PRN Reason: Mild Pain Stop: 05/18/16 01:11 Last Admin: 04/19/16 16:19 Dose: 1,000 mg Albuterol Sulfate (Albuterol Sulfate 2.5 Mg/3 Ml) 2.5 mg IH Q2H PRN PRN Reason: Shortness Of Breath/Wheezing Stop: 05/19/16 23:49 Last Admin: 04/20/16 06:31 Dose: 2.5 mg Bisacodyl (Dulcolax Suppository) 10 mg RC DAILY PRN PRN Reason: Constipation Stop: 05/18/16 22:56 Last Admin: 04/18/16 23:14 Dose: 10 mg Bisacodyl (Dulcolax Suppository) 10 mg RC ONCE ONE Stop: 04/19/16 11:36 Last Admin: 04/19/16 11:58 Dose: 10 mg Diatrizoate Meglum/Diatrizoate Sod (Gastrografin Solution) 60 ml PO ONCE ONE Stop: 04/17/16 18:57 Last Admin: 04/17/16 19:07 Dose: 60 ml Diatrizoate Meglum/Diatrizoate Sod (Gastrografin Solution) 60 ml PO ONCE ONE Stop: 04/17/16 18:57 Last Admin: 04/17/16 19:44 Dose: Not Given Diphenhydramine HCl (Benadryl) 25 mg IV Q4H PRN PRN Reason: Itching Stop: 05/19/16 13:23 Last Admin: 04/19/16 13:35 Dose: 25 mg Heparin Sodium (Porcine) (Heparin Sodium) 5,000 units SC Q12H RAJWINDER Stop: 05/19/16 10:31 Last Admin: 04/19/16 22:35 Dose: 5,000 units Hydromorphone HCl (Dilaudid) 1 mg IV ONCE ONE Stop: 04/17/16 18:57 Last Admin: 04/17/16 19:07 Dose: 1 mg Hydromorphone HCl (Dilaudid) 1 mg IV ONCE ONE Stop: 04/17/16 20:42 Last Admin: 04/17/16 20:43 Dose: 1 mg Hydromorphone HCl (Dilaudid) 1 mg IV ONCE ONE Stop: 04/17/16 22:40 Last Admin: 04/17/16 22:59 Dose: 1 mg Hydromorphone HCl (Dilaudid) 1 mg IV Q6H PRN PRN Reason: Moderate to Severe Pain Stop: 05/18/16 00:56 Last Admin: 04/18/16 08:28 Dose: 1 mg Hydromorphone HCl (Dilaudid) 2 mg IV Q2H PRN PRN Reason: Moderate to Severe Pain Stop: 05/18/16 00:56 Last Admin: 04/19/16 11:58 Dose: 2 mg Hydromorphone HCl (Dilaudid) 2 mg PO Q4H PRN PRN Reason: Moderate to Severe Pain Stop: 05/19/16 09:14 Last Admin: 04/19/16 22:31 Dose: 2 mg Sodium Chloride (Sodium Chloride 0.9%) 1,000 mls @ 999 mls/hr IV .Q1H1M [facility] Stop: 04/17/16 19:56 Last Admin: 04/17/16 19:13 Dose: 999 mls/hr Pantoprazole Sodium 40 mg/ (Sodium Chloride) 100 mls @ 400 mls/hr IV Q24H [facility] Stop: 05/17/16 23:01 Last Infusion: 04/18/16 23:28 Dose: Infused Dextrose/Sodium Chloride (Dextrose 5%-0.9% Ns) 1,000 mls @ 125 mls/hr IV .Q8H [facility] Stop: 05/17/16 23:01 Last Admin: 04/18/16 00:07 Dose: 125 mls/hr Potassium Chloride 10 meq/ (Dextrose/Sodium Chloride) 1,005 mls @ 125 mls/hr IV .Q8H3M [facility] Stop: 05/18/16 00:59 Last Admin: 04/18/16 01:15 Dose: Not Given Potassium Chloride 20 meq/ (Dextrose/Sodium Chloride) 1,010 mls @ 125 mls/hr [facility] .Q8H5[facility] [place] Stop: 05/18/16 00:59 Last Admin: 04/18/16 02:43 Dose: Not Given Potassium Chloride 20 meq/ (Dextrose/Sodium Chloride) 1,010 mls @ 125 mls/hr IV .Q8H5M [facility] Stop: 05/18/16 02:31 Last Admin: 04/18/16 02:36 Dose: 125 mls/hr Potassium Chloride 20 meq/ (Dextrose/Sodium Chloride) 1,010 mls @ 125 mls/hr IV .Q8H5[facility] [place] Stop: 05/18/16 02:31 Last Admin: 04/19/16 05:49 Dose: 125 mls/hr Sodium Chloride (Sodium Chloride 0.9%) 1,000 mls @ 999 mls/hr IV .Q1H1M ONE Stop: 04/18/16 09:31 Last Admin: 04/18/16 10:18 Dose: 999 mls/hr Sodium Chloride (Sodium Chloride 0.9%) 1,000 mls @ 999 mls/hr IV .Q1H1M ONE Stop: 04/19/16 09:53 Last Admin: 04/19/16 09:20 Dose: 999 mls/hr Sodium Chloride (Sodium Chloride 0.9%) 1,000 mls @ 200 mls/hr IV .Q5H [facility] Stop: 04/20/16 09:01 Last Admin: 04/20/16 02:37 Dose: 200 mls/hr Ketorolac Tromethamine (Toradol) 30 mg IV ONCE ONE Stop: 04/17/16 17:39 Last Admin: 04/17/16 17:51 Dose: 30 mg Lorazepam (Ativan) 1 mg IV Q2H PRN PRN Reason: Anxiety Stop: 05/19/16 12:01 Last Admin: 04/19/16 16:20 Dose: 1 mg Magnesium Citrate (Citrate Of Magnesia) 300 ml PO ONCE ONE Stop: 04/19/16 18:01 Last Admin: 04/19/16 17:58 Dose: 300 ml Ondansetron HCl (Zofran) 4 mg IV ONCE ONE Stop: 04/17/16 18:57 Last Admin: 04/17/16 19:07 Dose: 4 mg Ondansetron HCl (Zofran) 4 mg IV Q6H PRN PRN Reason: Nausea And Vomiting Stop: 05/17/16 22:58 Last Admin: 04/20/16 05:08 Dose: 4 mg Ondansetron HCl (Zofran Odt) 4 mg PO Q8H PRN PRN Reason: Nausea Stop: 05/18/16 16:52 Last Admin: 04/19/16 11:51 Dose: 4 mg Saccharomyces Boulardii (Florastor) 250 mg PO TID RAJWINDER Stop: 05/18/16 09:01 Last Admin: 04/19/16 19:53 Dose: Not Given - Disposition Disposition: [facility] Condition: Critical Discharge Date: 04/20/16 Discharge Time: 10:30
== END 2016-04-20 08:40 | disposition short-term general hospital (02) | DRG 388 ==
LOC: ER 16:16 → UNDOADMIN 22:33 → MS 22:33 → SCU 04-20 07:55
PROVIDERS: ADMIT Nurse Practitioner; ATTEND Internal Medicine
PROC: 5A1935Z Respiratory Ventilation, Less than 24 Consecutive Hours (ICD-10-PCS; principal; 2016-04-20)
PROC: 0BH17EZ Insertion of Endotracheal Airway into Trachea, Via Natural or Artificial Opening (ICD-10-PCS; 2016-04-20)
DX: K56.5 Intestinal adhesions [bands] with obstruction (postinfection) (principal); K66.1 Hemoperitoneum; J96.00 Acute respiratory failure, unspecified whether with hypoxia or hypercapnia; K52.0 Gastroenteritis and colitis due to radiation; R11.10 Vomiting, unspecified; E03.9 Hypothyroidism, unspecified; Z85.41 Personal history of malignant neoplasm of cervix uteri; Z85.51 Personal history of malignant neoplasm of bladder

== ENCOUNTER 2016-04-28 12:26 | Inpatient (IN) | payer MEDICARE, MEDICAID ==
--- OUTSIDE RECORDS SUMMARY | 2016-04-28 12:30 | XMS REPORT | Continuity of Care Document ---
:1960 Author Organization [employer] Address [place] [address] Care Team Providers Name Role Phone Unavailable Primary Care Provider Unavailable Source Comments This disclosure is being made pursuant to the [employer] program and maynot contain all information available regarding this patient.[employer] Active Allergies and Adverse Reactions Not on [...]
--- OUTSIDE RECORDS SUMMARY | 2016-04-28 12:31 | XMS REPORT | Continuity of Care Document ---
:1960 Author Organization [facility] ([facility]) [place] [address] Phone [phone] Care Team Providers Name Role Phone Anais Guerin Primary Care Provider [phone] Source Comments This disclosure is being made pursuant to the Care Everywhere program, applicable federal and state laws, and may not contain all informaitonavailable regarding this patient.[facility] ([facility]) Active Allergies and Adverse Reactions Allergen Noted Date Severity Reactions Comments Levofloxacin 07/22/2015 OTHER cramps Pseudoephedrine Hcl 10/16/2008 Agitation Sulfadoxine Dizziness Current Medications Prescription Sig. Disp. Refills Start End Date Status Date ferrous sulfate Take 650 mg by Active 325 mg (65 mg mouth daily. iron) tablet atorvastatin 10 mg Take 10 mg by Active tablet mouth every evening. acetaminophen 500 Take 1,000 mg by Active mg tablet mouth every 6 hours as needed. albuterol 90 Use 1-2 Puffs by Active mcg/Actuation inhalation every 4 inhaler hours as needed. enoxaparin 40 Inject 40 mg 30 Syringe 0 Active mg/0.4 mL subcutaneously 7 injection syringe daily. loperamide 2 mg Take 1 capsule (2 120 capsule 0 Active capsule mg total) by mouth 7 every 6 hours as needed for Diarrhea. miconazole 2 % Apply topically 3 30 g 0 Active powder times daily. 7 docusate 100 mg Take 1 capsule 60 capsule 0 04/21/19 Discontinued capsule (100 mg total) by 6 17 mouth 2 times daily as needed. oxybutynin 5 mg Take 1 tablet (5 90 tablet 3 04/21/19 Discontinued tablet mg total) by mouth 6 17 3 times daily as needed. Active Problems [...] Problems Problem Noted Date Resolved Date Peritonitis (acute) generalized 04/22/2016 04/28/2016 Abdominal pain 04/20/2016 04/28/2016 SBO (small bowel obstruction) 04/20/2016 04/28/2016 Metabolic encephalopathy 04/20/2016 04/28/2016 Acute respiratory failure with hypoxia and hypercapnia 04/20/2016 04/28/2016 ULISES (acute kidney injury) 04/20/2016 04/28/2016 High anion gap metabolic acidosis 04/20/2016 04/28/2016 Respiratory acidosis 04/20/2016 04/28/2016 Lactic acidosis 04/20/2016 04/28/2016 Perforation of bladder 04/20/2016 04/28/2016 Septic shock 04/20/2016 04/28/2016 Peritonitis 06/28/2015 01/07/2016 Pyelonephritis 06/22/2015 01/07/2016 Perforation of bladder 06/10/2015 01/07/2016 Lesion of bladder 06/27/2013 01/07/2016 Vaginal discomfort 10/15/2012 01/07/2016 Headache(784.0) 01/07/2007 10/16/2008 Most Recent Encounters Date Type Specialty Providers Description 04/20/2016 - Hospital Encounter Intensive Care Devin Ceballos Dx: Malignant 04/28/2016 Inpatient - Adult MD Louie neoplasm of Roby Jerome, endocervix (Primary MD Dx) James Rosario MD 04/20/2016 Telephone Intensive Care Milton Cool Chief Comp: Inpatient - Adult MD Airam Monitored Phone Call 04/20/2016 Anesthesia Event General Surgery Lizbet Nur MD 04/20/2016 Surgery General Surgery Roby Jerome EXPLORATORY MD LAPAROTOMY Immunizations Name Dates Previously Given Next Due Influenza, quadrivalent PF 04/28/2016(Patient Refused) Social History Tobacco Use Types Packs/Day Years Used Date Former Smoker 1.5 5 Quit: 02/23/1994 Smokeless Tobacco: Never Used Tobacco Cessation:Counseling Given: Yes Comments:Quit 1994 Alcohol Use Drinks/Week oz/Week Comments No 0 Standard drinks or equivalent 0.0 Last Filed Vital Signs Vital Sign Reading Time Taken Blood Pressure 133/72 04/28/2016 8:01 AM CDT Pulse 86 01/03/2016 12:47 PM VOCATIONAL NURSE Temperature 37 C (98.6 F) 04/28/2016 8:01 AM CDT Respiratory Rate 22 07/22/2015 2:43 PM CDT Height 1.626 m (5' 4") 06/10/2015 6:20 PM CDT Weight 87.9 kg (193 lb 12.6 oz) 04/21/2016 6:15 AM VOCATIONAL NURSE Body Mass Index 33.25 04/21/2016 6:15 AM VOCATIONAL NURSE Oxygen Saturation 95% 04/28/2016 8:01 AM CDT Plan of Care Patient Goal Type Goal Diet Increase water intake Date Type Specialty Providers Description 05/12/2016 Appointment Urology Kvng Lucio MD Subj: Appointment Scheduled [address] [place] [address] [phone] (Fax) 09/22/2016 Appointment Urology Kvng Lucio MD Subj: Appointment [address] [place] [address] [phone] (Fax) Health Maintenance Due Date Last Done [...] 02/23/2015 02/23/2010 Influenza Vaccine: Seasonal 09/13/2015 (#1) Procedures from Last 3 Months Procedure Name Priority Date/Time Associated Diagnosis Comments EXPLORATORY 04/20/2016 4:00 Intraperitoneal rupture LAPAROTOMY PM VOCATIONAL NURSE of bladder ABSTRACTED BY Routine 04/20/2016 3:42 Malignant neoplasm of Results for this BILLING STAFF PM VOCATIONAL NURSE endocervix procedure are in the results section. ABSTRACTED BY Routine 04/20/2016 1:21 SBO (small bowel Results for this BILLING STAFF PM VOCATIONAL NURSE obstruction) procedure are in the results section. Results from Last 3 Months C. DIFFICILE TOXIN SCREEN (04/27/2016 11:55 AM) Component Value Range C. Difficle GDH Negative Negative C. Difficile Toxin NegativeComment: Negative Negative for the presence of C. difficile and C. difficile toxin. Specimen Stool BLOOD CELL MORPHOLOGY (04/27/2016 4:37 AM)Only the most recent of2 resultswithin the time period is included. Component Value Range Polychromasia 1+ Large Platelet Present Specimen Whole Blood CBC (COMPLETE BLOOD COUNT) (04/27/2016 4:37 AM)Only the most recent of3 resultswithin the time period is included. Component Value Range WBC Count 11.3(H) 3.7-10.5 K/MM3 RBC Count 3.21(L) 4.00-5.20 M/MM3 Hemoglobin 9.5(L) 11.9-15.5 g/dL Hematocrit 28(L) 35-47 % MCV (Mean Corpuscular Volume) 89 82-99 FL MCH (Mean Corpuscular Hemoglobin) 30 25-35 PG MCHC (Mean Corpuscular Hemoglobin 34 32-36 % Concentration) Platelet Count Clumped(A)Comment:Platelets clumped on smear; appear normal by estimate. MPV (Mean Platelet Volume) 10.7 9.4-12.3 FL RBC Dist Width-STD 47.6(H) 36.4-46.3 FL RBC Distrib Width 14.7(H) 9.0-14.5 % Nucleated RBC 0 /100 WBC Specimen Whole Blood BASIC METABOLIC PANEL W/ CALCIUM (CHEM 8) (04/27/2016 4:37 AM)Only the most recent of5 resultswithin the time period is included. Component Value Range Sodium 141 135-145 mEq/L Potassium 3.2(L) 3.5-5.0 mEq/L Chloride 101 95-107 mEq/L CO2 23 22-29 mEq/L Anion Gap 17 8-18 mEq/L BUN 9(L) 10-20 mg/dL Creatinine 0.5Comment: 0.5-1.0 mg/dL Creatinine switched to enzymatic method on 06/21/2010.GFR equation switched to IDMS-traceable MDRD equation on 06/21/2010. Calculated GFR values are not valid in clinical settings where serum creatinine is changing. Glucose 101(H)Comment: 65-99 mg/dL The Expert Committee on the Diagnosis and Classification of Diabetes has defined impaired fasting glucose as greater than or equal to 100 mg/dL but less than 126 mg/dL.(Diabetes Care 28 (Suppl 1)S41,2005) Calcium 8.4(L) 8.5-10.5 mg/dL Calculated GFR >90 >60 mL/min/1.73 m2 Specimen Blood VANCOMYCIN DRUG LEVEL (04/25/2016 8:46 AM)Only the most recent of2 resultswithin the time period is included. Component Value Range Vancomycin Drug Level 9.8 0.0-40.0 g/mL Specimen Blood HEMOGLOBIN (04/25/2016 8:46 AM) Component Value Range Hemoglobin 8.9(L) 11.9-15.5 g/dL Specimen Whole Blood CREATININE (04/25/2016 8:46 AM) Component Value Range Creatinine 0.5Comment: 0.5-1.0 mg/dL Creatinine switched to enzymatic method on 06/21/2010.GFR equation switched to IDMS-traceable MDRD equation on 06/21/2010. Calculated GFR values are not valid in clinical settings where serum creatinine is changing. Calculated GFR >90 >60 mL/min/1.73 m2 Specimen Blood CREATININE, OTHER (04/25/2016 5:32 AM)Only the most recent of2 resultswithin the time period is included. Component Value Range Creatinine Fluid Type ÁLVARO drain Creatinine, Other 0.6Comment: mg/dL This test is not approved by the FDA for this sample type. Performance characteristics and reference range have not been verified. Results should be interpreted in conjunction with clinical findings. A published study using [employer] alexander 8000 analyzers has demonstrated that analysis of creatinine in vitreous fluid shows no evidence of systematic matrix interference (Clin Biochem 48:911-914, 2015). Specimen Other PHOSPHORUS (04/23/2016 8:13 AM)Only the most recent of4 resultswithin the time period is included. Component Value Range Phosphorus 2.1(L)Comment:New reference range installed 11/24/14. 2.5-4.5 mg/ dL Specimen Blood MAGNESIUM (04/23/2016 8:13 AM)Only the most recent of4 resultswithin the time period is included. Component Value Range Magnesium 1.8 1.5-2.9 mg/dL Specimen Blood POTASSIUM (04/23/2016 8:13 AM) Component Value Range Potassium 3.7 3.5-5.0 mEq/L Specimen Blood POTASSIUM ([facility]ARE [facility]ORY) (04/22/2016 10:16 PM)Only the most recent of2 resultswithin the time period is included. Component Value Range Potassium, Whole Blood 3.2(L)Comment: 3.5-5.0 mEq/L Sample run on whole blood.Hemolysis is not measured. Specimen Whole Blood BLOOD CULTURE (04/22/2016 1:54 PM)Only the most recent of4 resultswithin the time period is included. Component Value Range Blood Culture No Growth Specimen Blood - Blood, Venipuncture CHEST - AP/PA (04/21/2016 7:43 AM)Only the most recent of2 resultswithin the time period is included. Impressions Findings / Impression: Visualized lines and tubes are in satisfactory position. The cardiomediastinal silhouette is better seen on today's examination specifically along the right heart border. The lungs are demonstrating improved aeration predominantly in the periphery of the right upper lobe and in portions of the left lower lobe. The continues to be however coalescent alveolar opacities in both lungs with predominant right upper lobe and left lower lobe distribution. Bilateral pleural effusions are still present. Narrative Procedure: CHEST - AP/PA Technique: Portable AP chest radiograph Comparison: Chest radiograph(s) dated: 04/20/2016. Clinical Indication: Pneumonia or ARDS Procedure Note Julio, Incoming Imaging Results - SunApr 21, 2016 7:59 AM VOCATIONAL NURSE Procedure: CHEST - AP/PA Technique: Portable AP chest radiograph Comparison: Chest radiograph(s) dated: 04/20/2016. Clinical Indication: Pneumonia or ARDS IMPRESSION Findings / Impression: Visualized lines and tubes are in satisfactory position. The cardiomediastinal silhouette is better seen on today's examination specifically along the right heart border. The lungs are demonstrating improved aeration predominantly in the periphery of the right upper lobe and in portions of the left lower lobe. The continues to be however coalescent alveolar opacities in both lungs with predominant right upper lobe and left lower lobe distribution. Bilateral pleural effusions are still present. VENOUS OXYGEN SATURATION (CRITICAL CARE LABORATORY) (04/21/2016 3:40 AM)Only the most recent of3 resultswithin the time period is included. Component Value Range Venous O2 Saturation 80.2 % Venous Oxyhemoglobin 78.4 % Specimen Whole Blood VENOUS BLOOD GAS ([facility]ARE LAB[facility]ATORY) (04/21/2016 3:40 AM)Only the most recent of3 resultswithin the time period is included. Component Value Range pH, Venous 7.34 7.33-7.43 pCO2, Venous 31(L) 37-50 torr pO2, Venous 41 37-47 torr Base Excess, Venous -9(L) -2-2 mEq/L Bicarbonate, Venous 16(L) 22-26 mEq/L Total CO2, Venous 17(L) 24-32 mEq/L Temperature, Venous 37.0 Degrees C Specimen Whole Blood LACTIC ACID, WHOLE BLOOD ([facility]) (04/21/2016 3:40 AM)Only the most recent of3 resultswithin the time period is included. Component Value Range Lactic Acid, Whole Blood 0.9Comment: 0.5-2.0 mEq/L Glycolate, the principle toxic metabolite of ethylene glycol, can cause artifactual elevation of measured lactate. Specimen Whole Blood TROPONIN T (04/20/2016 7:54 PM)Only the most recent of2 resultswithin the time period is included. Component Value Range Troponin-T 0.33(H) <=0.10 ng/mL Specimen Blood SURGICAL PATHOLOGY EXAM (04/20/2016 5:41 PM) Component Value Range Case Report Surgical Pathology Case: [id number] Authorizing Provider:Roby Jerome MD Collected: 04/20/2016 05:41 PM Ordering Location: Main OR Received:04/21/2016 07:26 AM Pathologist: Melissa New MD Specimen:Tissue, specify, bladder perforation Diagnosis Bladder, excision of perforated region: Fragments of bladder wall with transmural granulation tissue, foreign body giant cell reaction, and overlying necrotic debris, compatible with perforation. I have personally reviewed this case and edited the report as necessary. Gross Description Received fresh in a container labeled with Darlene Campbell, hospital number, and "bladder perforation" are four irregular, unoriented, yousif- pink to white, smooth to ragged soft tissue fragments ranging f rom 0.7-2.0 cm in greatest dimension. The specimens are sectioned to reveal smooth, yousif-white cut surfaces.No discrete mass lesions are grossly identified.The specimen is entirely submitted inA1-A2. ATC/tkr Microscopic Description Microscopic examination has been performed and supports the diagnosis. MED/MIS Specimen Surgical Pathology - Tissue, specify AEROBIC CULTURE, ROUTINE (04/20/2016 5:02 PM) Component Value Range Culture No Growth Gram Stain No organisms observed Gram Stain Many PMN's Gram Stain Cytospun preparation Specimen Microbiology - Peritoneal Fluid ANAEROBIC CULTURE (04/20/2016 5:02 PM)Only the most recent of2 resultswithin the time period is included. Component Value Range Anaerobic culture growth No anaerobic organisms isolated Specimen Microbiology - Peritoneal Fluid PARACENTESIS OF ABDOMEN (04/20/2016 3:42 PM) Narrative Devin Ceballos MD 04/20/20163:42 PM Procedure Note PARACENTESIS OF ABDOMEN Paracentesis, Diagnostic or Therapeutic Procedure Note Internal Medicine Procedure Service Date of Service: 04/20/2016 Referring Physician: Devin Ceballos MD Consent: emergent Time Out: no Ultrasound: Ultrasound was utilized to assess the presence of fluid and identify a safe entry point for the paracentesis needle.An image was saved. Description of Procedure: The patient was placed in the supine position. Preprocedural ultrasound images demonstrated moderate abdominal ascites and an entry site was localized. The overlying skin was prepped with chlorhexidine and draped in the usual sterile fashion. A paracentesis needle was used to enter the peritoneal space in the left lower quadrant and cloudy fluid was obtained. 10cc of fluid was aspirated for diagnostic studies . The patient tolerated the procedure well without immediate signs of complication. Fluid samples were sent for analyses Procedural Medications:No procedural medications were given Complications: None noted Venu Kinney MD Teaching Statement: I was not present for this procedure. Devin Ceballos MD Division of Pulmonary Diseases, Critical Care, and Occupational Medicine Pager [phone] CT PELVIS WO CONTRAST ([id number]) (04/20/2016 2:19 PM) Impressions Impression: 1. Intraperitoneal bladder rupture, site of rupture at the right bladder dome. It is in the same location as the previous bladder perforation on 05/26/[address] 2. Large volume pelvic ascites. Results of the procedure were given to: PERSON CONTACTED:Dr. Cool DATE: 04/20/2016 TIME CALLED:1430 PHONE/PAGER:In person Narrative Procedure: CT PELVIS WO CONTRAST ([id number]) Clinical Indication: Ascites with concern for bladder rupture. Evaluate for retroperitoneal bladder perforation.Additional history from the medical record, history of bladder cancer, history of TURBT, history of bladder rupture and prior repair. History of radiation treatment to the pelvis. History of stage IIB cervical cancer with prior chemoradiation in 2002. Technique: CT exam of the pelvis is performed without IV contrast. CT cystogram protocol. A total of 400 cc of cystoHypaque was instilled into the bladder and subsequently drained. The absence of IV contrast limits assessment of the solid organs and bowel. Findings: Comparison: External CT abdomen and pelvis on outside Stentor 04/17/2016, 04/20/2016. External CT abdomen and pelvis 05/26/2015. Ureters: Distally not dilated Bladder: Inflated Carrasco catheter balloon in the bladder. There is a small tract of extraluminal contrast attending from the right bladder dome further tracking of the right pelvis. Series 6, image 50 through 46. Coronal series 8, image 55 and 56. Small amount of air in the bladder is likely iatrogenic. Bladder wall is mildly thickened. No endoluminal bladder masses. Aorta: Lower abdominal aorta nonaneurysmal. Retroperitoneum: No lymphadenopathy in the lower retroperitoneum. Peritoneum: Large volume of ascites, already present before instillation of contrast into the bladder. Upon instillation of contrast into the bladder, the contrast accumulates into the abdominal cavity surrounding numerous bowel loops further mixing with the pre-existing ascites on the delays. No extraluminal air in the pelvis. Mesentery: Mild fat stranding and mesenteric free fluid along with contrast. Small bowel: Imaged small bowel not distended. Colon: Imaged colon not dilated. It contains residual enteric contrast from prior oral contrast given for 04/17/2016 CT. Scattered diverticulosis. Appendix: Normal containing enteric contrast in the right pelvis. Extraperitoneal pelvis: No lymphadenopathy. Uterus: Not seen or atrophic. Ovaries: Not seen Abdominal wall: Mild subcutaneous edema. Lower midline anterior abdominal wall scar. Small fat-containing periumbilical hernia Bones: Radiation changes with more localized osteopenia in L5 and the sacrum. Procedure Note Julio, Incoming Imaging Results - [facility] Apr 20, 2016 3:42 PM VOCATIONAL NURSE Procedure: CT PELVIS WO CONTRAST ([id number]) Clinical Indication: Ascites with concern for bladder rupture. Evaluate for retroperitoneal bladder perforation. Additional history from the medical record, history of bladder cancer, history of TURBT, history of bladder rupture and prior repair. History of radiation treatment to the pelvis. History of stage IIB cervical cancer with prior chemoradiation in 2002. Technique: CT exam of the pelvis is performed without IV contrast. CT cystogram protocol. A total of 400 cc of cystoHypaque was instilled into the bladder and subsequently drained. The absence of IV contrast limits assessment of the solid organs and bowel. Findings: Comparison: External CT abdomen and pelvis on outside Stentor 04/17/2016, 04/20/2016. External CT abdomen and pelvis 05/26/2015. Ureters: Distally not dilated Bladder: Inflated Carrasco catheter balloon in the bladder. There is a small tract of extraluminal contrast attending from the right bladder dome further tracking of the right pelvis. Series 6, image 50 through 46. Coronal series 8, image 55 and 56. Small amount of air in the bladder is likely iatrogenic. Bladder wall is mildly thickened. No endoluminal bladder masses. Aorta: Lower abdominal aorta nonaneurysmal. Retroperitoneum: No lymphadenopathy in the lower retroperitoneum. Peritoneum: Large volume of ascites, already present before instillation of contrast into the bladder. Upon instillation of contrast into the bladder, the contrast accumulates into the abdominal cavity surrounding numerous bowel loops further mixing with the pre-existing ascites on the delays. No extraluminal air in the pelvis. Mesentery: Mild fat stranding and mesenteric free fluid along with contrast. Small bowel: Imaged small bowel not distended. Colon: Imaged colon not dilated. It contains residual enteric contrast from prior oral contrast given for 04/17/2016 CT. Scattered diverticulosis. Appendix: Normal containing enteric contrast in the right pelvis. Extraperitoneal pelvis: No lymphadenopathy. Uterus: Not seen or atrophic. Ovaries: Not seen Abdominal wall: Mild subcutaneous edema. Lower midline anterior abdominal wall scar. Small fat-containing periumbilical hernia Bones: Radiation changes with more localized osteopenia in L5 and the sacrum. IMPRESSION Impression: 1. Intraperitoneal bladder rupture, site of rupture at the right bladder dome. It is in the same location as the previous bladder perforation on 05/26/[address] 2. Large volume pelvic ascites. Results of the procedure were given to: PERSON CONTACTED: Dr. Cool DATE: 04/20/2016 TIME CALLED: 1430 PHONE/PAGER: In person STERILE BODY FLUIDS CULTURE-AUTOMATED (04/20/2016 1:23 PM) Component Value Range Blood Culture Escherichia coli(A) Blood Culture Enterococcus faecalis(A)Comment: Synergy for gentamicin when combined with ampicillin or vancomycin Synergy for streptomycin when combined with ampicillin or vancomycin. Stain No organisms observed Stain Many PMN's Stain Cytospun preparation Stain Result from Positive Culture Bottle Stain Gram Negative Rods Stain Gram Positive Cocci in pairs and Chains Stain Aerobic bottle Specimen Culture - Peritoneal Fluid Narrative Identification performed by MALDI-TOF mass spectrometry (MS).The performance characteristics of MALDI-TOF MS were determined by the [facility].It has not been cleared orApproved by the FDA. The FDA has determined that such clearance or approval is not necessary.This test is for clinical purposes. It should not be regarded as investigational or for research.The laboratory is certified under the Clinical Laboratory Improvement Amendments of 1988 (CLIA) as qualified to perform high complexity clinical laboratory testing. Organism Antibiotic Method Susceptibility Escherichia coli AMPICILLIN 4: Susceptible Escherichia coli CEFTRIAXONE <=1: Susceptible Escherichia coli CIPROFLOXACIN <=0.25: Susceptible Escherichia coli GENTAMICIN <=1: Susceptible Escherichia coli PIPERACILLIN/TAZOBACTAM <=4: Susceptible Escherichia coli TRIMETHOPRIM/SULFA <=1: Susceptible Escherichia coli CEFAZOLIN <=4: Susceptible Comment:This is a corrected report. Antibiotics have been updated or changed. 04/25/2016 9:14 AM Cherrie Verdugo Enterococcus faecalis AMPICILLIN <=2: Susceptible Enterococcus faecalis GENTAMICIN HIGH LEVEL Susceptible Enterococcus faecalis STREPTOMYCIN HIGH LEVEL Susceptible Enterococcus faecalis VANCOMYCIN 1: Susceptible CENTRAL LINE (04/20/2016 1:21 PM) Arabella Ramriez ARNP 04/20/20161:21 PM Central Line Procedure Note Date of Procedure: 04/20/2016 CENTRAL LINE Date/Time: 04/20/2016 1:20 PM Consent obtained: No Procedure performed in an emergent situation Immediately prior to procedure a time out was called to verify the correct patient, procedure, equipment, lead performance support analyst and site/side marked as required Anesthesia (see MAR for exact dosages): Anesthesia method: local infiltration Local anesthetic:Lidocaine 1% w/o epi Description of Procedure: The patient was positioned supine, and the patient was prepped and draped in usual sterile fashion with chlorhexidine and full body drape. After assuring adequate anesthesia, the Seldinger technique was used to enter the left internal jugular vein, dilate the tract, advance the triple lumen Central Line catheter to 20 cm, and fixed in place. A sterile dressing was applied. Ultrasound: The procedure was completed with ultrasound guidance. Imaging was obtained and stored. Post-procedure details: The patient did tolerate the procedure. The patient did not have complications. Arabella Millan DNP, [facility] Department of Pulmonary and Critical Care Medicine Pager [phone] ALBUMIN-OTHER (04/20/2016 1:14 PM) Component Value Range Albumin Fluid Type Peritoneal fluid Albumin, Other <0.2Comment: g/dL This test is not approved by the FDA for this sample type. Performance characteristics and reference range have not been verified. Results should be interpreted in conjunction with clinical findings. Specimen Other BODY FLUID CELL COUNT AND DIFF (04/20/2016 1:14 PM) Component Value Range Body Fluid Type Peritoneal fluid Clarity, Other Turbid(A) Clear Color, Other None None, Yellow, Pale Yellow Total Nucleated Count, Other 86302 /MM3 RBC Count, Other 1000 /MM3 Neutrophils, Other 20127 /MM3 Lymphocytes, Other 111 /MM3 Mononucleated Cells, Other 333 /MM3 % Neutrophils, Other 96.0 % % Lymphocytes, Other 1.0 % %BF Mononucleated Cells 3.0 % Specimen Other CREATINE KINASE (04/20/2016 1:04 PM) Component Value Range Creatine Kinase 778(H) 26-192 U/L Specimen Blood AMYLASE (04/20/2016 1:04 PM) Component Value Range Amylase 100Comment: 0-100 U/L Amylase assay methodology and reference range changed 06/03/09. Specimen Blood LIPASE (04/20/2016 1:04 PM) Component Value Range Lipase 9(L) 13-60 U/L Specimen Blood PT/INR (PROTHROMBIN TIME/INR) VENOUS (04/20/2016 1:04 PM) Component Value Range PT (Prothrombin Time) 14(H) 9-12 secs INR 1.4 <4.0 Specimen Blood HEPATIC FUNCTION PANEL (04/20/2016 1:04 PM) Component Value Range Albumin 2.7(L) 3.4-4.8 g/dL ALP 50 35-104 U/L Bilirubin Total 0.6 <=1.2 mg/dL Bilirubin, Direct <0.2 0.0-0.2 mg/dL AST 23Comment: 0-32 U/L Adult reference ranges updated on 01/07/13 at 830am ALT 16Comment: 0-33 U/L The upper limit of normal for alanine aminotransferase (ALT) reference ranges for adults is controversial with some authorities recommending limit as low as 30 U/L for males and 19 U/L for females. Th ere is increased incidence of subclinical liver disease (e.g., early steatohepatitis) in patients with ALT values in the range of 31-41 U/L for males and 20-33 U/L for females. ALT values should alway s be interpreted in conjunction with clinical history, physical examination findings, and, if applicable, data from other diagnostic tests. Total Protein 5.5(L) 6.0-8.0 g/dL Specimen Blood URINE CULTURE, REFLEXED (04/20/2016 11:55 AM) Component Value Range Quantitative Culture No growth at 02/999 dilution Specimen Culture - Urine, Indwelling cath MICROSCOPIC URINALYSIS (04/20/2016 11:45 AM) Component Value Range White Blood Cells, Urine >180(H) 0-5 /HPF Red Blood Cells, Urine 73(H) 0-2 /HPF Bacteria, Urine Rare(A) /HPF Squamous Epithelial Cells, Urine 8 <=10 /LPF Mucous-Urine Rare None, Rare Amorphous Sediment-Urine Rare None, Rare Specimen Urine URINALYSIS WITH REFLEX CULTURE (04/20/2016 11:45 AM) Component Value Range Color, Urine Yellow Straw, Pale Yellow, Yellow, Clear, None Clarity, Urine Cloudy(A) Clear pH, Urine 6.0 <9.0 Spec Carmi, Urine 1.015 1.000-1.030 Glucose, Urine 1+(A) Negative Blood, Urine 2+(A) Negative Ketones, Urine Trace(A) Negative Protein, Urine 2+(A) Negative Urobilinogen, Urine Normal Normal Bilirubin, Urine Negative Negative Leukocyte Esterase, Urine 3+(A) Negative Nitrite, Urine Negative Negative Specimen Urine CREATININE-URINE, RANDOM (04/20/2016 11:45 AM) Component Value Range Creatinine, Urine, Random 67.2 mg/dL Specimen Urine SODIUM-URINE,RANDOM (04/20/2016 11:45 AM) Component Value Range Sodium, Urine, Random 154 mEq/L Specimen Urine URINALYSIS WITH REFLEXED CULTURE AND MICROSCOPIC EXAM (04/20/2016 11:45 AM) Specimen Culture - Urine, Indwelling cath Narrative The following orders were created for panel order URINALYSIS WITH REFLEXED CULTURE AND MICROSCOPIC EXAM. Procedure Abnormality Status --------- ------ URINALYSIS WITH REFLEX C...[[id number]]AbnormalFinal result MICROSCOPIC URINALYSIS[[id number]] Abnormal Final result URINE CULTURE, REFLEXED[[id number]]Normal Final result Please view results for these tests on the individual orders. DIFFERENTIAL (04/20/2016 11:12 AM) Component Value Range % Manual Neutrophils 71.3 % Neutrophils-Manual 4820 0265-0423 /MM3 % Manual Lymphocytes 7.8 % Lymphocytes-Manual 529(L) 875-3300 /MM3 % Manual Monocytes 5.2 % Monocytes-Manual 353 130-860 /MM3 % Manual Bands 15.7 % Bands-Man Diff 1058(H) 0-406 /MM3 ANC (Absolute Neutrophil Count) 5878 /MM3 Specimen Whole Blood CBC (COMPLETE BLOOD COUNT) (04/20/2016 11:12 AM) Component Value Range WBC Count 6.8 3.7-10.5 K/MM3 RBC Count 4.32 4.00-5.20 M/MM3 Hemoglobin 12.9 11.9-15.5 g/dL Hematocrit 43 35-47 % MCV (Mean Corpuscular Volume) 98 82-99 FL MCH (Mean Corpuscular Hemoglobin) 30 25-35 PG MCHC (Mean Corpuscular Hemoglobin Concentration) 30(L) 32-36 % Platelet Count 132(L) 150-400 K/MM3 MPV (Mean Platelet Volume) 10.7 9.4-12.3 FL RBC Dist Width-STD 49.3(H) 36.4-46.3 FL RBC Distrib Width 13.5 9.0-14.5 % Nucleated RBC 0 /100 WBC Specimen Whole Blood CBC WITH DIFFERENTIAL (04/20/2016 11:12 AM) Specimen Whole Blood Narrative The following orders were created for panel order CBC WITH DIFFERENTIAL. Procedure Abnormality Status --------- ------ CBC (COMPLETE BLOOD COUNT)[[id number]] AbnormalFinal result DIFFERENTIAL[[id number]] AbnormalFinal result Please view results for these tests on the individual orders. ECG - EKG 12 LEAD (04/20/2016 11:04 AM) Component Value Range ECG SEVERITY - BORDERLINE ECG - VENT. RATE 123 bpm RR 488 ms P-R INTERVAL 164 ms QRSD INTERVAL 80 ms QT INTERVAL 312 ms QTC INTERVAL 447 ms P AXIS 65 degrees QRS AXIS 70 degrees T WAVE AXIS -11 degrees REPORT SINUS TACHYCARDIA [Remains] BORDERLINE T ABNORMALITIES, INFERIOR LEADS [Now Present] Otherwise no significant change Interpreting Physician: VERO JEROME MD EXTERNAL PL FILM-STORE& INTER (04/20/2016 10:59 AM)Only the most recent of2 resultswithin the time period is included. Impressions Impression: 1. Nonobstructive bowel gas pattern. Narrative Outside film interpretation requested. Exam was performed at 754 hours on 04/20/2016 at [facility]. 2 images are provided and interpreted on the in-house PACS. Procedure: AP supine and left lateral decubitus plain radiograph of the abdomen. Clinical indication: Small bowel obstruction. Abdominal pain. Comparison: CT body dated 01/03/2016. Findings: Nonobstructive bowel gas pattern.. No intraperitoneal free air. Vicarious excretion of prior contrast in the gallbladder. Procedure Note Julio, Incoming Imaging Results - Desiree Apr 20, 2016 1:29 PM VOCATIONAL NURSE Outside film interpretation requested. Exam was performed at 754 hours on 04/20/2016 at [facility]. 2 images are provided and interpreted on the in-house PACS. Procedure: AP supine and left lateral decubitus plain radiograph of the abdomen. Clinical indication: Small bowel obstruction. Abdominal pain. Comparison: CT body dated 01/03/2016. Findings: Nonobstructive bowel gas pattern.. No intraperitoneal free air. Vicarious excretion of prior contrast in the gallbladder. IMPRESSION Impression: 1. Nonobstructive bowel gas pattern. EXTERNAL CT - STORE ONLY (04/20/2016 10:56 AM)
[2016-04-28] MEDS ORDERED: ALBUTEROL SULFATE 2.5 MG/3 ML VIAL.NEB IH PRN (15:48)
[2016-04-28] MEDS: ENOXAPARIN SODIUM 40 MG/0.4 ML SYRG SC SCH (16:31)
[2016-04-28] MEDS: MICONAZOLE NITRATE 85 APPL BTL TP SCH (16:31)
[2016-04-28] MEDS: LOPERAMIDE HCL 2 MG CAPSULE PO PRN (16:33)
[2016-04-28] MEDS: ROSUVASTATIN CALCIUM 10 MG TABLET PO SCH (20:55)
--- NOTE | 2016-04-28 21:24 | HP ---
Chief Complaint - Chief Complaint Date of Service: 04/28/16 Time of Service: 19:00 Chief Complaint: Generalized weakness, PT/OT History of Present Illness: 55 years old female adm as a transfer from [facility] S/P bladder perforation repair 04/20/16.She is been admitted for decreased ROM and functionality mobility post surgery. 04/20/16 pt was adm at [facility] for small bowel obstruction and ULISES. obstruction was managed with NGT and on CLD. Despite IVF resuscitation ULISES got progressively worst, she was transferred to [facility] for increased abdominal pain respiratory failure and renal failure. PMH significant for cervical cancer, bladder cancer S/P cystectomy and bladder rupture 06/27, renal failure, radiation enteritis, hyperlpipidemia, peritonitis, acute respiratory failure and metabolic encephalopathy. Pt will be adm for skill service , plan of care discussed with pt she verbalized understanding and agree. - Patient's Past Medical History Patient History - Medical: Renal Failure, UTI'S, Other - small bowel obstruction , peritonitis, radiation enteritis Patient History - Cardiac/Respiratory: Hyperlipidemia, Other - respiratory failure Patient History - Cancer: Bladder, Cervical, Radiation Therapy Patient History - Surgical Procedures: Hysterectomy, Other, Urology Patient History - Other: None - Family History Mother Family History - Medical: , Diabetes Type 2 Insulin Dependent Family History - Cardiac/Respiratory: History Unknown Family History - Cancer: History Unknown Father Family History - Medical: Diabetes Type 2 Insulin Dependent Family History - Cardiac/Respiratory: No pertinent hx, Hypertension Family History - Cancer: Prostate - Social History Living Situations: alone Abuse History: No History of abuse Psych History: No pertinent hx Smoking Status: Former smoker Have you smoked in the past 12 months: No Do you dip or chew tobacco: No Patient requests Smoking Cessation Consult: No Initiate information on Smoking Cessation: No Alcohol Use: none Drug Use: none - Immunizations Immunizations Up to Date: Yes Hx Pneumococcal Vaccination: No History of Influenza Vaccine: No Review Of Systems (GEN) - Review of Systems Generalized/Overall Review: Present: Weakness EENTM: Present: No Symptoms Reported Respiratory: Present: No Symptoms Reported Cardiac: Present: No Symptoms Reported Abdominal: Present: Diarrhea Genitourinary: Present: Other - rice cath Musculoskeletal: Present: No Symptoms Reported Neurological: Present: No Symptoms Reported Skin: Present: Other - midline abd surgcal site OTC D/ I Immunizations: IMMUNIZATION HX Immunizations Up to Date Yes History of Influenza Vaccine No Hx Pneumococcal Vaccination No Allergies/Adverse Reactions: Allergies Allergy/AdvReac Type Severity Reaction Status Date / Time levofloxacin [From Levaquin] Allergy Hives Verified 04/28/16 12:31 pseudoephedrine HCl AdvReac Mild NEVER SLEEP Verified 04/28/16 12:31 [From Sudafed] Sulfa (Sulfonamide AdvReac Mild "GO ON A Verified 04/28/16 12:31 Antibiotics) HIGH" Home Medications: HOME MEDICATIONS Acetaminophen [Tylenol] 1,000 mg PO Q6H PRN 04/28/16 [Last Taken Unknown] Albuterol Sulfate [Ventolin Hfa] 2 puff IH Q4H PRN 04/28/16 [Last Taken Unknown] Atorvastatin Calcium [Lipitor] 10 mg PO HS 04/28/16 [Last Taken 04/27/16] Enoxaparin Sodium [Lovenox] 40 mg SC Q24H 04/28/16 [Last Taken 04/28/16] Ferrous Sulfate [Iron] 650 mg PO DAILY 04/28/16 [Last Taken Unknown] Loperamide HCl [Imodium] 2 mg PO Q6H PRN 04/28/16 [Last Taken 04/28/16] Miconazole Nitrate [Desenex] 90 gm TP TID 04/28/16 [Last Taken 04/28/16 09:00] Exam - Exam Vital Signs: Vital Signs - Last Taken Temp 36.6 C 04/28/16 19:22 Pulse 103 H 04/28/16 19:22 Resp 18 04/28/16 19:22 BP 133/73 04/28/16 19:22 Pulse Ox 95 04/28/16 19:22 Constitutional: Present: Alert, Oriented x3, Cooperative, No distress, Middle aged, Looks Older than stated age ENT Exam: Present: moist mucous membranes Eye Exam: bilateral eye: PERRL Neck: Present: full range of motion Back Exam: Present: normal inspection Breasts: Present: Exam deferred Respiratory: Present: chest non-tender, lungs clear, normal breath sounds, no respiratory distress Cardiovascular/Chest: Present: normal peripheral pulses, regular rate, rhythm, no chest tenderness, no edema Peripheral Pulses: dorsalis-pedis (R): 3+, dorsalis-pedis (L): 3+ Abdomen: Present: Normal bowel sounds, soft, nontender, nondistended, no rebound tenderness, other - LLQ ÁLVARO drainage Extremity: Present: normal range of motion, non-tender, normal inspection, no pedal edema, no calf tenderness Skin Exam: Present: normal color, warm/dry Neurologic: Present: oriented x 3 Appearance: Present: appropriate appearance Eye contact: Present: cooperative Thoughts: Present: normal thought pattern Assessment/Plan - Narrative Narrative: S/P Bladder rupture 04/20/16 S/P Bladder repair at the [facility] Keep Rice cath until seen by urologist for evaluation Monitor drainage from ÁLVARO site to LLQ Generalized weakness post-op PT/OT evaluation and treatment Encourage use of I/S VTE ppx Lovenox and SCD while in bed and encourage early ambulation Hyperlipidemia-stable continue with home dose of medications Renal Failure Monitor CMP in am and encourage oral intake 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
[2016-04-29 07:00] LABS: Hematocrit 27.8 % (37.0-47.0); Hemoglobin 9.2 gm/dL (12.5-16.0); Mean Cell Volume 88.5 fl (78-100); Mean Corpuscular Hemoglobin 29.3 pg (27-31); Mean Corpuscular Hgb Conc 33.1 g/dl (32-36); Mean Platelet Volume 10.6 fl (6.0-9.5); Neutrophil % 69.2 % (42-75.0); Platelet Count 382 K/mm3 (150-450); Red Blood Count 3.14 M/mm3 (4.2-5.4); Red Cell Distribution Width 14.6 % (11.5-14.0); White Blood Count 8.7 K/mm3 (4.0-10.5)
[2016-04-29 07:16] LABS: Anion Gap 12.9 mmol/L (6.8-13.8); BUN/Creatinine Ratio 17.5 (9.0-21.6); Calcium * 8.4 mg/dL (7.9-10.9); Estimated Creat Clear 85.4; Potassium 2.9 mmol/L (3.4-4.6)
[2016-04-29] MEDS: MICONAZOLE NITRATE 85 APPL BTL TP SCH ×3 (08:33→16:35)
[2016-04-29] MEDS: SACCHAROMYCES BOULARDII 250 MG CAPSULE PO SCH ×3 (08:34→16:35)
[2016-04-29] MEDS: FERROUS SULFATE 325 MG TABLET PO SCH (08:34)
[2016-04-29] MEDS: ACETAMINOPHEN 500 MG TABLET PO PRN ×2 (10:27→16:33)
[2016-04-29] MEDS ORDERED: POTASSIUM CHLORIDE 20 MEQ TABLET.SA PO ONE (13:00)
[2016-04-29] MEDS: POTASSIUM CHLORIDE 20 MEQ TABLET.SA PO SCH (16:34)
[2016-04-29] MEDS: ENOXAPARIN SODIUM 40 MG/0.4 ML SYRG SC SCH (16:34)
[2016-04-29] MEDS: ROSUVASTATIN CALCIUM 10 MG TABLET PO SCH (21:27)
[2016-04-30] MEDS: ACETAMINOPHEN 500 MG TABLET PO PRN ×3 (05:18→19:55)
[2016-04-30] MEDS: FERROUS SULFATE 325 MG TABLET PO SCH (09:53)
[2016-04-30] MEDS: MICONAZOLE NITRATE 85 APPL BTL TP SCH ×3 (09:53→17:53)
[2016-04-30] MEDS: SACCHAROMYCES BOULARDII 250 MG CAPSULE PO SCH ×3 (09:53→17:53)
[2016-04-30] MEDS: POTASSIUM CHLORIDE 20 MEQ TABLET.SA PO SCH ×2 (09:53→17:54)
[2016-04-30] MEDS: LOPERAMIDE HCL 2 MG CAPSULE PO PRN ×2 (13:39→19:55)
[2016-04-30] MEDS: ENOXAPARIN SODIUM 40 MG/0.4 ML SYRG SC SCH (17:53)
[2016-04-30] MEDS: ROSUVASTATIN CALCIUM 10 MG TABLET PO SCH (19:59)
[2016-05-01] MEDS: FERROUS SULFATE 325 MG TABLET PO SCH (08:55)
[2016-05-01] MEDS: MICONAZOLE NITRATE 85 APPL BTL TP SCH ×3 (08:55→17:40)
[2016-05-01] MEDS: SACCHAROMYCES BOULARDII 250 MG CAPSULE PO SCH ×3 (08:55→18:06)
[2016-05-01] MEDS: POTASSIUM CHLORIDE 20 MEQ TABLET.SA PO SCH (09:03)
[2016-05-01] MEDS: LOPERAMIDE HCL 2 MG CAPSULE PO PRN ×2 (13:44→17:36)
[2016-05-01] MEDS: ENOXAPARIN SODIUM 40 MG/0.4 ML SYRG SC SCH (17:38)
[2016-05-01] MEDS: ROSUVASTATIN CALCIUM 10 MG TABLET PO SCH (20:17)
[2016-05-02 06:30] LABS: Hemoglobin 9.3 gm/dL (12.5-16.0); Mean Cell Volume 90.9 fl (78-100); Mean Corpuscular Hemoglobin 29.2 pg (27-31); Mean Corpuscular Hgb Conc 32.1 g/dl (32-36); Platelet Count 444 K/mm3 (150-450); Red Blood Count 3.19 M/mm3 (4.2-5.4); Red Cell Distribution Width 14.7 % (11.5-14.0)
[2016-05-02 06:46] LABS: Anion Gap 13.2 mmol/L (6.8-13.8); BUN/Creatinine Ratio 9.5 (9.0-21.6); Calcium * 8.9 mg/dL (7.9-10.9); Carbon Dioxide 26.4 mmol/L (24-32.6); Estimated Creat Clear 85.4; Potassium 3.6 mmol/L (3.4-4.6)
[2016-05-02] MEDS: MICONAZOLE NITRATE 85 APPL BTL TP SCH ×3 (08:47→16:46)
[2016-05-02] MEDS: FERROUS SULFATE 325 MG TABLET PO SCH (08:47)
[2016-05-02] MEDS: SACCHAROMYCES BOULARDII 250 MG CAPSULE PO SCH ×3 (08:47→16:39)
[2016-05-02] MEDS: ACETAMINOPHEN 500 MG TABLET PO PRN (16:39)
[2016-05-02] MEDS: ENOXAPARIN SODIUM 40 MG/0.4 ML SYRG SC SCH (16:39)
[2016-05-02] MEDS: ROSUVASTATIN CALCIUM 10 MG TABLET PO SCH (20:12)
[2016-05-03] MEDS: ACETAMINOPHEN 500 MG TABLET PO PRN ×3 (02:46→20:09)
[2016-05-03] MEDS: FERROUS SULFATE 325 MG TABLET PO SCH (08:54)
[2016-05-03] MEDS: SACCHAROMYCES BOULARDII 250 MG CAPSULE PO SCH ×3 (08:54→16:04)
[2016-05-03] MEDS: MICONAZOLE NITRATE 85 APPL BTL TP SCH ×2 (08:54→12:46)
[2016-05-03] MEDS: ENOXAPARIN SODIUM 40 MG/0.4 ML SYRG SC SCH (16:03)
[2016-05-03] MEDS: ROSUVASTATIN CALCIUM 10 MG TABLET PO SCH (20:10)
[2016-05-03] MEDS ORDERED: SENNOSIDES/DOCUSATE SODIUM 1 TAB TABLET PO SCH (21:00)
[2016-05-04] MEDS: ACETAMINOPHEN 500 MG TABLET PO PRN (03:09)
[2016-05-04 08:01] VITALS: BP 120/67
[2016-05-04] MEDS: FERROUS SULFATE 325 MG TABLET PO SCH (08:35)
[2016-05-04] MEDS: SACCHAROMYCES BOULARDII 250 MG CAPSULE PO SCH (08:36)
--- NOTE | 2016-05-04 09:24 | DS ---
(1) Bladder rupture Problem: Acute (2) Hyperlipidemia Problem: Chronic Qualifiers: Hyperlipidemia type: other hyperlipidemia Qualified Code(s): E78.4 - Other hyperlipidemia (3) Hypertension Problem: Chronic Qualifiers: Hypertension type: essential hypertension Qualified Code(s): I10 - Essential (primary) hypertension (4) Radiation enteritis Problem: Chronic (5) Renal failure Problem: Chronic (6) Weakness Problem: Chronic Description of Stay: 55 years old female adm as a transfer from [facility] S/P bladder perforation repair 04/20/16.She is been admitted for decreased ROM and functionality mobility post surgery. 04/20/16 pt was adm at [facility] for small bowel obstruction and ULISES. obstruction was managed with NGT and on CLD. Despite IVF resuscitation ULISES got progressively worst, she was transferred to [facility] for increased abdominal pain respiratory failure and renal failure. PMH significant for cervical cancer, bladder cancer S/P cystectomy and bladder rupture 06/27, renal failure, radiation enteritis, hyperlpipidemia, peritonitis, acute respiratory failure and metabolic encephalopathy. Pt will be adm for skill service , plan of care discussed with pt she verbalized understanding and agree. patient's weakness improved over the course of her SNF admission and she was able to take care of herself and her medical needs by the time of discharge. She was felt ready and stable by the day of discharge, able to show nurse how to care of catheter. follow up care was made and discharge teaching was done prior to discharge. Procedures Performed: none Discharge Disposition: Home self care Disposition: Home self-care Condition: Stable Discharge Activity: Activity as tolerated Discharge Diet: General/regular food Problem Oriented Discharge Instructions to Patient/Family: Rice Catheter Care , Adult, [id number], Surgical Drain Home Care Additional Patient Instructions (free text): Follow up with Urology at [facility] with Dr Kvng Lucio on SundayMay [address] Gurein appt SundayMay 08 at 9:30am. Keep Rice Catheter and ÁLVARO Drain in place and intact until seen by urology and given further instructions. See discharge instructions from [facility] on rice cather care. Complete Home Medications List: Complete Home Medication List: Acetaminophen [Tylenol] 1,000 mg PO Q6H PRN 04/28/16 Albuterol Sulfate [Ventolin Hfa] 2 puff IH Q4H PRN 04/28/16 Atorvastatin Calcium [Lipitor] 10 mg PO HS 04/28/16 Ferrous Sulfate [Iron] 650 mg PO DAILY 04/28/16 Loperamide HCl [Imodium] 2 mg PO Q6H PRN 04/28/16 Sennosides/Docusate Sodium [Senokot-S] 2 tab PO HS tablet 05/04/16
== END 2016-05-04 11:30 | disposition home or self-care (01) | DRG 949 ==
LOC: MS 12:26
PROVIDERS: ADMIT Internal Medicine; ATTEND Internal Medicine
DX: Z48.816 Encounter for surgical aftercare following surgery on the genitourinary system (principal); K52.0 Gastroenteritis and colitis due to radiation; N32.89 Other specified disorders of bladder; R53.1 Weakness; E78.5 Hyperlipidemia, unspecified; I10 Essential (primary) hypertension; Z79.01 Long term (current) use of anticoagulants; Z85.41 Personal history of malignant neoplasm of cervix uteri; Z85.51 Personal history of malignant neoplasm of bladder

== ENCOUNTER 2016-07-07 15:59 | Emergency (ER) | payer MEDICARE, MEDICAID ==
[2016-07-07 16:30] LABS: Urine Appearance Clear; Urine Bilirubin Negative (NEGATIVE); Urine Blood Negative /ul (NEGATIVE); Urine Color Yellow; Urine Ketone Negative (NEGATIVE)
[2016-07-07 16:31] LABS: Urine Bacteria None Seen; Urine Nitrite Negative (NEGATIVE); Urine Protein Negative (NEGATIVE); Urine RBC None Seen /hpf (0-5); Urine Urobilinogen Normal (NORMAL); Urine WBC 0-5 /hpf (0-5)
[2016-07-07 16:37] LABS: Mean Corpuscular Hemoglobin 29.7 pg (27-31); Mean Corpuscular Hgb Conc 34.2 g/dl (32-36); Mean Platelet Volume 10.2 fl (6.0-9.5); Neutrophil # 3.6 K/mm3 (1.3-6.0); Neutrophil % 53.1 % (42-75.0); Platelet Count 195 K/mm3 (150-450); Red Blood Count 4.37 M/mm3 (4.2-5.4); Red Cell Distribution Width 11.8 % (11.5-14.0); White Blood Count 6.8 K/mm3 (4.0-10.5)
[2016-07-07 16:58] LABS: Albumin * 3.8 gm/dl (3.4-5.0); Anion Gap 14.8 mmol/L (6.8-13.8); BUN/Creatinine Ratio 13.8 (9.0-21.6); Bilirubin, Total 0.4 mg/dL (0.0-1.1); Calcium * 9.2 mg/dL (7.9-10.9); Potassium 3.8 mmol/L (3.4-4.6)
[2016-07-07] MEDS ORDERED: ACETAMINOPHEN 500 MG TABLET PO ONE (17:33)
--- OUTSIDE RECORDS SUMMARY | 2016-07-07 18:00 | XMS REPORT | Continuity of Care Document ---
:1960 Author Organization [employer] [place] [address] Care Team Providers Name Role Phone Unavailable Primary Care Provider Unavailable Source Comments This disclosure is being made pursuant to the [employer] program and maynot contain all information available regarding this patient.[employer] Active Allergies and Adverse Reactions Not on [...]
--- OUTSIDE RECORDS SUMMARY | 2016-07-07 18:01 | XMS REPORT | Continuity of Care Document ---
:1960 Author Organization [facility] ([facility]) Address [place] [address] Phone [phone] Care Team Providers Name Role Phone Anais Guerin Primary Care Provider [phone] Source Comments This disclosure is being made pursuant to the Care Everywhere program, applicable federal and state laws, and may not contain all informaitonavailable regarding this patient.[facility] ([facility]) Active Allergies and Adverse Reactions Allergen Noted Date Severity Reactions Comments Levofloxacin 07/22/2015 OTHER cramps Pseudoephedrine Hcl 10/16/2008 Agitation Sulfadoxine Dizziness Current Medications Prescription Sig. Disp. Refills Start End Date Status Date ferrous sulfate 325 Take 650 mg by Active mg (65 mg iron) mouth daily. tablet atorvastatin 10 mg Take 10 mg by Active tablet mouth every evening. acetaminophen 500 mg Take 1,000 mg Active tablet by mouth every 6 hours as needed. albuterol 90 Use 1-2 Puffs Active mcg/Actuation by inhalation inhaler every 4 hours as needed. loperamide 2 mg Take 1 capsule 120 capsule 0 Active capsule (2 mg total) by 7 mouth every 6 hours as needed for Diarrhea. cholecalciferol Take 1,000 Active (VITAMIN D3) 1,000 Units by mouth unit capsule daily. miconazole 2 % Apply topically 30 g 0 06/22/19 Discontinued powder 3 times daily. 7 17 Active Problems Problem Noted Date History of [...] Recent Encounters Date Type Specialty Providers Description 06/21/2016 Office Visit Urology Roby Jerome, Dx: Ruptured MD bladder (Primary Dx) 05/29/2016 Hospital Encounter Rehabilitation Therapist, Rehab Dx: Pelvic floor Emelina, Shira dysfunction L, PT (Primary Dx) 05/26/2016 Office Visit Gynecology Lawanda Blood, Dx: Screening for MD malignant neoplasm (Primary Dx) 05/22/2016 Telephone Gynecology Alina, Chief Comp: Marybel Chau MD Referral 05/15/2016 Telephone Urology Roby Jerome, Chief Comp: Patient Concern 05/12/2016 Office Visit Urology Kvng Lucio Subj: Appointment MD Srinath Canceled 05/10/2016 Hospital Encounter Radiology Roby Jerome, Subj: Appointment Scheduled 05/10/2016 Office Visit UrologRoby Perdomo, Subj: Upcoming MD Appt Reminder 05/10/2016 Office Visit UrologRoby Perdomo, Dx: Bladder MD rupture (Primary Dx) 05/10/2016 Orders/Notes UrologRoby Perdomo, Dx: Rupture of MD bladder (Primary Dx) 05/09/2016 Telephone Urology Roby Jerome, Chief Comp: MD Patient Concern 04/20/2016 - Hospital Encounter Intensive Care Devin Ceballos Dx: Malignant 04/28/2016 Inpatient - Adult MD Louie neoplasm of Roby Jerome, endocervix (Primary Dx) James Rosario MD 04/20/2016 Telephone Intensive Care Milton Cool Chief Comp: Inpatient - Adult MD Airam Monitored Phone Call 04/20/2016 Anesthesia Event General Surgery Lizbet Nur MD 04/20/2016 Surgery General Surgery Roby Jerome, EXPLORATORY MD LAPAROTOMY Social History Tobacco Use Types Packs/Day Years Used Date Former Smoker 1.5 5 Quit: 02/23/1994 Smokeless Tobacco: Never Used Tobacco Cessation:Counseling Given: Yes Comments:Quit 1994 Alcohol Use Drinks/Week oz/Week Comments No 0 Standard drinks or equivalent 0.0 Last Filed Vital Signs Vital Sign Reading Time Taken Blood Pressure 127/78 06/21/2016 4:15 PM CDT Pulse 77 06/21/2016 4:15 PM CDT Temperature 36.8 C (98.2 F) 06/21/2016 4:15 PM CDT Respiratory Rate 22 07/22/2015 2:43 PM CDT Height 1.6 m (5' 3") 06/21/2016 4:18 PM CDT Weight 69.4 kg (153 lb) 06/21/2016 4:18 PM CDT Body Mass Index 27.11 06/21/2016 4:18 PM CDT Oxygen Saturation 95% 04/28/2016 8:01 AM CDT Plan of Care Patient Goal Type Goal Diet Increase water intake Date Type Specialty Providers Description 09/22/2016 Appointment Urology Kvng Lucio MD Subj: Appointment [address] [place] [address] [phone] (Fax) 06/01/2017 Appointment Gynecology Lawanda Blood MD Subj: Appointment Scheduled Health Maintenance Due Date Last Done Comments HCV Screening 1960 Hepatitis B Vaccine (1 of 3 1960 - Primary Series) Tdap Vaccine 1973 MMR Vaccine 1980 Td Vaccine 1980 Pneumococcal Vaccine (1 of 3 1981 - PCV13) Mammogram 01/10/2008 01/09/2007 FOBT Colon Cancer Screening 2012 03/07/2010 Colonoscopy 04/12/2014 04/12/2004 Lipid Disorder Screening 02/23/2015 02/23/2010 Physical Therapy Plan of 08/27/2016 05/29/2016 Care Influenza Vaccine: Seasonal 09/12/2016 (Season Ended) Cervical Cancer Screening 05/26/2021 05/26/2016, Additional history exists 12/30/2009, 10/16/2008 Procedures from Last 3 Months Procedure Name Priority Date/Time Associated Diagnosis Comments NO PROCEDURE Routine 07/04/2016 4:41 Ruptured bladder Results for PM CDT this procedure are in the results section. ABSTRACTED BY BILLING Routine 05/18/2016 1:11 Bladder rupture Results for STAFF - NW PM CDT this procedure are in the results section. NJX CSTOGRAPY/VOIDING Routine 05/18/2016 1:11 Bladder rupture Results for URETHROCSTOGRAPY PM CDT this procedure are in the results section. EXPLORATORY LAPAROTOMY 04/20/2016 4:00 Intraperitoneal PM NURSE OUTREACH CASE MANAGER rupture of bladder ABSTRACTED BY BILLING Routine 04/20/2016 3:42 Malignant neoplasm of Results for STAFF PM NURSE OUTREACH CASE MANAGER endocervix this procedure are in the results section. ABSTRACTED BY BILLING Routine 04/20/2016 1:21 SBO (small bowel Results for STAFF PM NURSE OUTREACH CASE MANAGER obstruction) this procedure are in the results section. Results from Last 3 Months NO PROCEDURE (07/04/2016 4:41 PM) Narrative Roby Jerome MD 07/04/20164:41 PM Urology Clinic Note Encounter Date: 06/21/2016 Subjective: Chief Complaint Chief Complaint Patient presents with Patient Reported Reason For Visit 5-6 week BVI and Uroflow History of Present Illness: Darlene Campbell is a 56 y.o. female who presents to clinic after recent hospital discharge. 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 She subsequently had a bladder rupture and was managed with exploratory laparotomy on 2015. Following this, cystogram was without leak. She Returned on 04/20/2016 with a second intraperitoneal bladder rupture and subsequently underwent exploratory laparotomy on 04/20/2016 with the findings or a necrotic area of the bladder which was resected. Pathology was benign. She was then discharged home with a drain and catheter on 04/28/2016. Prior to D/C, ÁLVARO creatinine was serum. At last visit, catheter, brooklynn, and drain were removed. UTI Enterrococcus was treated with Augmentin. Returns today for flow BVI. She reports that she is doing well. No burning with urination, does have urinary frequency, no hematuria, no abdominal pain, is back to normal activity. 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 She received chemotherapy and radiation. She completed 4500 cGy to the pelvis on 10/16/02. She then had two tandem and ovoid placements, completing this in 11/2002. Past Surgical History Procedure Laterality Date Back [id number] Back surgery - Low back Cystoscopy with fulguration with or without biopsy08/19/2010 Scope bladder, removal of lesions, small08/19/2010 Procedure:BC W/ BIOPSY; Surgeon:MARCIN CERVANTES; Location:UROLOGY OR; Service:Urology Colonoscopy Unlis laps px bldr N/A 07/14/2013 Procedure: ROBOTIC CYSTECTOMY SI SYSTEM;Surgeon: Kvng Lucio MD;Location: MAIN OR;Service: Urology Colonoscopy Uterine fibroid surgery Cancer surgery Expl lapt expl celiotomy +-bx spx N/A 04/20/2016 Procedure: EXPLORATORY LAPAROTOMY;Surgeon: Roby Jerome MD;Location: MAIN OR;Service: Urology Family History Problem Relation Age of Onset Arthritis Mother Clotting Disorder Mother Cancer Father Diabetes Father Stroke Father High Cholesterol Father Social History Social History Marital Status: Spouse Name: N/A Number of Children: 2 Years of Education: N/A Occupational History Student Social History Main Topics Smoking status: Former Smoker -- 1.50 packs/day for 5 years Quit date: 02/23/1994 Smokeless tobacco: Never Used Comment: Quit 1994 Alcohol Use: No Drug Use: No Sexual Activity: Not Currently Other Topics Concern Seat Belt Yes Social History Narrative Current Outpatient Prescriptions Medication Sig Dispense Refill acetaminophen 500 mg tablet Take 1,000 mg by mouth every 6 hours as needed. albuterol 90 mcg/Actuation inhaler Use 1-2 Puffs by inhalation every 4 hours as needed. atorvastatin 10 mg tablet Take 10 mg by mouth every evening. cholecalciferol (VITAMIN D3) 1,000 unit capsule Take 1,000 Units by mouth daily. ferrous sulfate 325 mg (65 mg iron) tablet Take 650 mg by mouth daily. loperamide 2 mg capsule Take 1 capsule (2 mg total) by mouth every 6 hours as needed for Diarrhea. 120 capsule 0 No current facility-administered medications for this visit. Allergies Allergen Reactions Levofloxacin OTHER cramps Pseudoephedrine Hcl Agitation Sulfadoxine Dizziness Review of Systems All systems were reviewed and are negative except for: Constitutional: Night Sweats, Weight loss Nose/throat/mouth: Throat problems Cardiovascular: Pain in legs, Swelling of the feet or legs, NONE OF THESE GI: Loss of bowel control, Constipation, Diarrhea, Black stools Urogenital:Burning on urination Musculoskeletal: Arm Weakness Integumentary: Rash Neurological: Frequent Headaches, Weakness of an arm/leg Hematologic/lymphatic: Bruise easily Cancer: Yes Other issues: i forget alot Objective: BP 127/78 mmHg | Pulse 77 | Temp(Src) 36.8 C (98.2 F) (Tympanic) Exam: General: alert and oriented to person, place, and time HEENT:atruamatic, normocephalic Eyes:anicteric sclera Ears: Gross hearing intact Nose: no ulcerations of the external nares Cardiac: regular rate and rythem Pulmonary: non-labored respirations Abdomen: soft, nt/nd with well healed midline incisionExtremities: exposed skin acyanotic, non-tender without lesion Pysch: appropriate affect Data Review: Reviewed and summarized clinical notes as per HPI Reviewed and summarized clinical laboratory data as per HPI No results found for this or any previous visit (from the past 24 hour(s)). No results found for this or any previous visit (from the past 24 hour(s)). BVI=30 No procedure performed Assessment: Darlene Campbell is a 56 y.o. female with a history of mucinous bladder tumor, partial cystectomy and bladder perforation x2 with the most recent 04/20/2016 and now s/p ex lap with bladder repair. Returns today for 1 month follow-up following removal of brooklynn, catheter, and drain. She is doing well. UTI was treated with improvement in symptoms. Emptied well today with BVI=30 mL. Will plan to resume prior follow-up with Dr. Lucio for mucinous bladder cancer. Plan: UA, Urine culture negative for infection today Continue with appointment with Dr. Lucio on 09/22/16 Tony Carbone MD Department of Urology PGY2 [facility] Staff Physician Comments Teaching Statement I have interviewed and examined the patient and confirm the pertinent findings.I have discussed the case with the resident/fellow and agree with the findings and plan as documented. Roby Jerome M.D. Professor Department of Urology [facility] URINALYSIS (06/21/2016 5:35 PM) Component Value Range Color, Urine None Straw, Pale Yellow, Yellow, Clear, None Clarity, Urine Clear Clear pH, Urine 6.0 <9.0 Glucose, Urine Negative Negative Blood, Urine Negative Negative Ketones, Urine Negative Negative Protein, Urine Negative Negative Urobilinogen, Urine Normal Normal Bilirubin, Urine Negative Negative Leukocyte Esterase, Urine Negative Negative Nitrite, Urine Negative Negative Spec Stovall, Urine <1.005 1.000-1.030 Specimen Urine URINE CULTURE, ROUTINE AEROBIC (06/21/2016 5:35 PM)Only the most recent of2 resultswithin the time period is included. Component Value Range Quantitative Culture No growth at 1/100 dilution Specimen Culture - Urine, Straight cath specimen POST-VOID RESIDUAL (BVI), POINT OF CARE (06/21/2016) Component Value Range VOLUME 260 ml POST-VOID RESIDUAL 30 ml HUMAN PAPILLOMAVIRUS (HPV) HIGH RISK DNA (05/26/2016 10:30 AM) Component Value Range HPV Specimen Source Liquid Cyto HPV High Risk NegativeComment: Negative Test methodology: PCR amplification; Mi HPV Test ([employer] ) The HPV PCR test detects all of the currently identified high risk HPV genotypes (16, 18, 31, 33, 35, 39, 45, 51, 52, 56, 58, 59, 66, and 68) that cause cancer of the cervix and other mucosal sites.HPV High Risk DNA testing of cytology specimens collected in [facility] and of tissue specimens was developed and the performance characteristics determined by the [facility]. This testing has not been cleared or approved by the US Food and Drug Administration. However, the FDA has determined that such approval is not necessary for this test. This test is for clinical purposes. The laboratory is certified under the Clinical Laboratory Improvement Amendments of 1988 as qualified to perform high complexity clinical laboratory testing. Specimen [place], Liquid-Based PAP - Cervix (Endo/Ecto) CYTOLOGY FINGER COBBLER EXAM - PAP TEST (05/26/2016 10:30 AM) Component Value Range Case Report FINGER COBBLER Cytopathology Report Case: [id number] Authorizing Provider:Lawanda Blood MDCollected: 05/26/2016 10:30 AM Ordering Location: [facility]:Received: 05/26/2016 12:03 PM Gynecology First Screen:Mario Douglas CT(ASCP) Specimen:Cytology Liquid Based PAP , Cervix (Endo/Ecto) Interpretation Negative for intraepithelial lesion or malignancy . Statement of Adequacy Satisfactory for interpretation. Endocervical component present. Specimen Description SurePath vial LMP No LMP Hormonal Status Unknown History of cancer YesComment:Cervical and Bladder Previous abnormal Unknown Education Note Pap tests are subject to both false negative and false positive results as evidenced by published data. Obtaining periodic Pap tests may minimize the consequence of false negatives. Your patient's res ults should be interpreted in this context, together with the patient's history and clinical findings. Specimen [place], Liquid-Based PAP - Cervix (Endo/Ecto) CYSTOGRAM (05/18/2016 1:11 PM) Narrative Roby Jerome MD 05/18/20161:11 PM Urology Clinic Note Encounter Date: 05/10/2016 Subjective: Chief Complaint Chief Complaint Patient presents with Patient Reported Reason For Visit 2 weeks for cystoscopy. Keep rice catheter and ÁLVARO drain in place until that time History of Present Illness: Darlene Campbell is a 55 y.o. female who presents to clinic after recent hospital discharge. 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 She subsequently had a bladder rupture and was managed with exploratory laparotomy on 2015. Following this, cystogram was without leak. She Returned on 04/20/2016 with a second intraperitoneal bladder rupture and subsequently underwent exploratory laparotomy on 04/20/2016 with the findings or a necrotic area of the bladder which was resected. Pathology was benign. She was then discharged home with a drain and catheter on 04/28/2016. Prior to D/C, ÁLVARO creatinine was serum. Today she reports that has been doing okay. She has had some irritation from the catheter as well as symptoms of a UTI and diarrhea for the past day. No fevers. No severe abdominal pain. Her catheter was removed in clinic today prior to me seeing her. 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 She received chemotherapy and radiation. She completed 4500 cGy to the pelvis on 10/16/02. She then had two tandem and ovoid placements, completing this in 11/2002. Past Surgical History Procedure Laterality Date Back [id number] Back surgery - Low back Cystoscopy with fulguration with or without biopsy08/19/2010 Scope bladder, removal of lesions, small08/19/2010 Procedure:BC W/ BIOPSY; Surgeon:MARCIN CERVANTES; Location:UROLOGY OR; Service:Urology Colonoscopy Unlis laps px bldr N/A 07/14/2013 Procedure: ROBOTIC CYSTECTOMY SI SYSTEM;Surgeon: Kvng Lucio MD;Location: MAIN OR;Service: Urology Colonoscopy Uterine fibroid surgery Cancer surgery Expl lapt expl celiotomy +-bx spx N/A 04/20/2016 Procedure: EXPLORATORY LAPAROTOMY;Surgeon: Roby Jerome MD;Location: MAIN OR;Service: Urology Family History Problem Relation Age of Onset Diabetes Father Arthritis Mother Cancer Father Stroke Father High Cholesterol Father Clotting Disorder Mother Social History Social History Marital Status: Spouse Name: N/A Number of Children: 2 Years of Education: N/A Occupational History Student Social History Main Topics Smoking status: Former Smoker -- 1.50 packs/day for 5 years Quit date: 02/23/1994 Smokeless tobacco: Never Used Comment: Quit 1994 Alcohol Use: No Drug Use: No Sexual Activity: Not Currently Other Topics Concern Seat Belt Yes Social History Narrative Current Outpatient Prescriptions Medication Sig Dispense Refill acetaminophen 500 mg tablet Take 1,000 mg by mouth every 6 hours as needed. albuterol 90 mcg/Actuation inhaler Use 1-2 Puffs by inhalation every 4 hours as needed. amoxicillin 500 mg capsule Take 500 mg by mouth 2 times daily. atorvastatin 10 mg tablet Take 10 mg by mouth every evening. enoxaparin 40 mg/0.4 mL injection syringe Inject 40 mg subcutaneously daily. 30 Syringe 0 ferrous sulfate 325 mg (65 mg iron) tablet Take 650 mg by mouth daily. HYDROcodone-acetaminophen 5-325 mg per tablet Take 1 tablet by mouth every 4 hours as needed. 10 tablet 0 loperamide 2 mg capsule Take 1 capsule (2 mg total) by mouth every 6 hours as needed for Diarrhea. 120 capsule 0 miconazole 2 % powder Apply topically 3 times daily. 30 g 0 Current Facility-Administered Medications Medication Dose Route Frequency Provider Last Rate Last Dose amoxicillin (AMOXIL) capsule 1,000 mg1,000 mg Oral Once Bob Trevizo MD diatrizoate meglumine (CYSTOGRAFIN) 30% irrigation solution 300 mL300 mL Bladder Instillation Once Bob Trevizo MD oxyCODONE-acetaminophen (PERCOCET) 5-325 mg per tablet 1 tablet 1 tablet Oral Once Bob Trevizo MD Allergies Allergen Reactions Levofloxacin OTHER cramps Pseudoephedrine Hcl Agitation Sulfadoxine Dizziness Review of Systems Objective: BP 121/79 mmHg | Pulse 83 | Temp(Src) 36.9 C (98.4 F) (Tympanic) Exam: General: alert and oriented to person, place, and time HEENT:atruamatic, normocephalic Eyes:anicteric sclera Ears: Gross hearing intact Nose: no ulcerations of the external nares Cardiac: regular rate and rythem Pulmonary: non-labored respirations Abdomen: soft, nt/nd with well healed midline incision with brooklynn in place. ÁLVARO with scant serous drainage with original hospital dressing in place Extremities: exposed skin acyanotic, non-tender without lesion Pysch: appropriate affect Data Review: Reviewed and summarized clinical notes as per HPI Reviewed and summarized clinical laboratory data as per HPI Recent Results (from the past 24 hour(s)) CREATININE, OTHER Collection Time: 05/10/173:28 PM Result Value Ref Range Creatinine Fluid Type ÁLVARO drain Creatinine, Other 0.8 mg/dL No results found for this or any previous visit (from the past 24 hour(s)). Cystogram (72264) & interpretation A catheter was placed. Urine was collected for culture. Under gravity, contrast was instilled into the bladder. About 90 cc of contrast were instilled. There was no evidence of urine leak. The bladder was drainage. Post-drainage films revealed no contrast extravasation. The catheter was removed. Following this, the ÁLVARO drain and brooklynn were removed. Assessment: Darlene Campbell is a 55 y.o. female with a history of mucinous bladder tumor, partial cystectomy and bladder perforation x2 with the most recent 04/20/2016 and now s/p ex lap with bladder repair. Her brooklynn, drain, and catheter were removed today. She feels she might have a UTI and UA/micro and culture were sent. She was started on amox on 05/08 which would cover the intraperitoneal organisms from the ex lap. Will continue this pending culture results. Will also ensure that there is no c diff infection. Will plan for follow-up in 4-6 weeks with a flow/bvi to ensure that she is emptying her bladder well. Plan: [place] and ÁLVARO drain removed today Urine culture/UA/Micro from catheter placement today (patient on amoxicillin already per chart) Cystogram without leak but with bladder capacity about 90 cc and therefore catheter removed Refilled lortab #10 for pain and one given after procedure Advised to removed dressing Placed on urine culture list Follow-up in 1 month for wound check with flow and bvi Staff Physician Comments Teaching Statement I have interviewed and examined the patient and confirm the pertinent findings.I was present for and participated in the entire procedure. I have discussed the case with the resident/fellow and agree with the findings and plan as documented. Roby Jerome M.D. Professor Department of Urology [facility] Staff Involved Staff and Resident/Fellow Bob Trevizo MD FL< 1 HOUR (DONE IN UROLOGY CLINIC) (05/10/2016 5:48 PM)MICROSCOPIC URINALYSIS (05/10/2016 5:46 PM)Only the most recent of2 resultswithin the time period is included. Component Value Range White Blood Cells, Urine 30(H) 0-5 /HPF Red Blood Cells, Urine >180(H) 0-2 /HPF Squamous Epithelial Cells, Urine 7 <=10 /LPF Mucous-Urine Rare None, Rare Amorphous Sediment-Urine Rare None, Rare Specimen Urine URINALYSIS WITH REFLEX CULTURE (05/10/2016 5:46 PM)Only the most recent of2 resultswithin the time period is included. Component Value Range Color, Urine Yellow Straw, Pale Yellow, Yellow, Clear, None Clarity, Urine Slightly Cloudy(A) Clear pH, Urine 5.0 <9.0 Spec Stovall, Urine 1.010 1.000-1.030 Glucose, Urine Negative Negative Blood, Urine 3+(A) Negative Ketones, Urine Negative Negative Protein, Urine 2+(A) Negative Urobilinogen, Urine Normal Normal Bilirubin, Urine Negative Negative Leukocyte Esterase, Urine 2+(A) Negative Nitrite, Urine Negative Negative Specimen Urine URINALYSIS WITH REFLEXED CULTURE AND MICROSCOPIC EXAM (05/10/2016 5:46 PM)Only the most recent of2 resultswithin the time period is included. Specimen Culture - Urine, Straight cath specimen Narrative The following orders were created for panel order URINALYSIS WITH REFLEXED CULTURE AND MICROSCOPIC EXAM. Procedure Abnormality Status --------- ------ URINALYSIS WITH REFLEX C...[[id number]]AbnormalFinal result MICROSCOPIC URINALYSIS[[id number]] Abnormal Final result URINE CULTURE, REFLEXED[[id number]]Abnormal Final result Please view results for these tests on the individual orders. URINE CULTURE, REFLEXED (05/10/2016 5:46 PM)Only the most recent of2 resultswithin the time period is included. Component Value Range Quantitative Culture <1000 CFU/mL Enterococcus faecalis(A)Comment:Susceptibility testing was not performed. See for susceptibility of same isolate(s). For further details, call [phone]. Quantitative Culture <1000 CFU/mL Mixed Mitzy (Urogenital) suggesting an improperly collected specimen(A) Specimen Culture - Urine, Straight cath specimen Narrative Identification performed by MALDI-TOF mass spectrometry (MS).The performance characteristics of MALDI-TOF MS were determined by the [facility].It has not been cleared orApproved by the FDA. The FDA has determined that such clearance or approval is not necessary.This test is for clinical purposes. It should not be regarded as investigational or for research.The laboratory is certified under the Clinical Laboratory Improvement Amendments of 1988 (CLIA) as qualified to perform high complexity clinical laboratory testing. CREATININE, OTHER (05/10/2016 3:28 PM)Only the most recent of3 resultswithin the time period is included. Component Value Range Creatinine Fluid Type ÁLVARO drain Creatinine, Other 0.8Comment: mg/dL This test is not approved by the FDA for this sample type. Performance characteristics and reference range have not been verified. Results should be interpreted in conjunction with clinical findings. A published study using [employer] mi 8000 analyzers has demonstrated that analysis of creatinine in vitreous fluid shows no evidence of systematic matrix interference (Clin Biochem 48:911-914, 2015). Specimen Other C. DIFFICILE TOXIN SCREEN (04/27/2016 11:55 AM) [...] GFR >90 >60 mL/min/1.73 m2 Specimen Blood PHOSPHORUS (04/23/2016 8:13 AM)Only the most recent [...] Results - SunApr 21, 2016 7:59 AM NURSE OUTREACH CASE MANAGER Procedure: CHEST - AP/PA Technique: Portable AP [...] Value Range Case Report Surgical Pathology Case: [id number] Authorizing Provider:Roby Jerome MD Collected: 04/20/2016 05:41 [...] organisms isolated Specimen Microbiology - Peritoneal Fluid FUNGAL CULTURE (INCLUDES DIRECT STAIN) (04/20/2016 5:02 PM) Component Value Range Fungal Culture No fungi isolated Calcofluor White Stain No yeast or fungal elements observed Specimen Microbiology - Peritoneal Fluid PARACENTESIS OF [...] Diseases, Critical Care, and Occupational Medicine Pager [phone] CT PELVIS WO CONTRAST ([id number]) (04/20/2016 2:19 PM) Impressions Impression: 1. Intraperitoneal bladder rupture, site of rupture at the right bladder dome. It is in the same location as the previous bladder perforation on 05/26/[address] 2. Large volume pelvic ascites. Results of the procedure were given to: PERSON CONTACTED:Dr. Cool DATE: 04/20/2016 TIME CALLED:[phone] PHONE/PAGER:In person Narrative Procedure: CT PELVIS WO CONTRAST ([id number]) Clinical Indication: Ascites with concern for bladder [...] 05/26/2015. Ureters: Distally not dilated Bladder: Inflated Rice catheter balloon in the bladder. There is [...] Imaging Results - Desiree Apr 20, 2016 3:42 PM NURSE OUTREACH CASE MANAGER Procedure: CT PELVIS WO CONTRAST ([id number]) Clinical Indication: Ascites with concern for bladder rupture. Evaluate for retroperitoneal bladder perforation. Additional history from the medical record, history of bladder cancer, history of TURBT, history of bladder rupture and prior repair. History of radiation treatment to the pelvis. History of stage IIB cervical cancer with prior chemoradiation in 2003. Technique: CT exam of the pelvis is [...] 05/26/2015. Ureters: Distally not dilated Bladder: Inflated Rice catheter balloon in the bladder. There is [...] CONTACTED: Dr. Cool DATE: 04/20/2016 TIME CALLED: [phone] PHONE/PAGER: In person STERILE BODY FLUIDS CULTURE-AUTOMATED [...] MS were determined by the [facility].It has not been cleared orApproved by [...] Susceptible CENTRAL LINE (04/20/2016 1:21 PM) Arabella Ramirez ARNP 04/20/20161:21 PM Central Line Procedure Note Date of Procedure: 04/20/2016 CENTRAL LINE Date/Time: 04/20/2016 1:20 PM Consent obtained: No Procedure performed in an emergent situation Immediately prior to procedure a time out was called to verify the correct patient, procedure, equipment, application support administrator and site/side marked as required Anesthesia (see [...] did not have complications. Arabella Millan DNP, [facility] Department of Pulmonary and Critical Care Medicine Pager [phone] ALBUMIN-OTHER (04/20/2016 1:14 PM) Component Value Range [...] Yellow, Pale Yellow Total Nucleated Count, Other 19809 /MM3 RBC Count, Other 1000 /MM3 Neutrophils, Other 95703 /MM3 Lymphocytes, Other 111 /MM3 Mononucleated Cells, [...] Total Protein 5.5(L) 6.0-8.0 g/dL Specimen Blood CREATININE-URINE, RANDOM (04/20/2016 11:45 AM) Component Value Range Creatinine, Urine, Random 67.2 mg/dL Specimen Urine SODIUM-URINE,RANDOM (04/20/2016 11:45 AM) Component Value Range Sodium, Urine, Random 154 mEq/L Specimen Urine DIFFERENTIAL (04/20/2016 11:12 AM) Component Value Range % Manual Neutrophils 71.3 % Neutrophils-Manual 4820 7187-0699 /MM3 % Manual Lymphocytes 7.8 % Lymphocytes-Manual [...] Abnormality Status --------- ------ CBC (COMPLETE BLOOD COUNT)[[id number]] AbnormalFinal result DIFFERENTIAL[[id number]] AbnormalFinal result Please view results for these [...] performed at 754 hours on 04/20/2016 at [facility]. 2 images are provided and interpreted on [...] - Desiree Apr 20, 2016 1:29 PM NURSE OUTREACH CASE MANAGER Outside film interpretation requested. Exam was performed at 754 hours on 04/20/2016 at [facility]. 2 images are provided and interpreted on [...]
[2016-07-07 18:43] VITALS: BP 150/90
--- NOTE | 2016-07-07 18:43 | ERNOTE ---
Medical Problem HPI - Narrative Date of Service: 07/07/16 - General Chief Complaint: General Assessment Time Seen by Provider: 07/07/16 17:51 Source: patient - Immun/Allergies/Home Medications Immunizations: IMMUNIZATION HX Immunizations Up to Date Yes History of Influenza Vaccine No Hx Pneumococcal Vaccination No Allergies/Adverse Reactions: Allergies levofloxacin [From Levaquin] Allergy (Verified 07/07/16 16:12) Hives pseudoephedrine HCl [From Sudafed] Adverse Reaction (Mild, Verified 07/07/16 16: 12) NEVER SLEEP Sulfa (Sulfonamide Antibiotics) Adverse Reaction (Mild, Verified 07/07/16 16:12) "GO ON A HIGH" Home Medications: HOME MEDICATIONS Acetaminophen [Tylenol] 1,000 mg PO Q6H PRN 04/28/16 [Last Taken Unknown] Albuterol Sulfate [Ventolin Hfa] 2 puff IH Q4H PRN 04/28/16 [Last Taken Unknown] Atorvastatin Calcium [Lipitor] 10 mg PO HS 04/28/16 [Last Taken 04/27/16] Ferrous Sulfate [Iron] 650 mg PO DAILY 04/28/16 [Last Taken Unknown] Loperamide HCl [Imodium] 2 mg PO Q6H PRN 04/28/16 [Last Taken 04/28/16] Sennosides/Docusate Sodium [Senokot-S] 2 tab PO HS tablet 05/04/16 [Last Taken Unknown] - History of Present History Narrative: Pain in lower abdomen that began yesterday. Denies injury. No vomiting. Is concerned that she might have more serious pathology. Sent from [facility] [place]. Timing: getting worse Severity: moderate Modifying Factors - (Worsens): Present: movement Review of Systems - Review of Systems Constitutional: Absent: fever, chills, weight loss Respiratory: Present: no symptoms reported Cardiology: Present: no symptoms reported Gastrointestinal/Abdominal: Present: See HPI, abdominal pain Genitourinary: Absent: frequency, pain, dysuria Musculoskeletal: Present: no symptoms reported Skin: Present: no symptoms reported Neurological: Present: no symptoms reported - Patient's Past Medical History Patient History - Medical: Renal Failure, UTI'S, Other Patient History - Cardiac/Respiratory: Hyperlipidemia, Other Patient History - Cancer: Bladder, Cervical, Radiation Therapy Patient History - Surgical Procedures: Hysterectomy, Other, Urology Patient History - Other: None LMP (females 10-50): Menopausal - Family History Mother Family History - Medical: , Diabetes Type 2 Insulin Dependent Family History - Cardiac/Respiratory: History Unknown Family History - Cancer: History Unknown Father Family History - Medical: Diabetes Type 2 Insulin Dependent Family History - Cardiac/Respiratory: No pertinent hx, Hypertension Family History - Cancer: Prostate - Social History Living Situations: home Abuse History: No History of abuse Psych History: No pertinent hx Alcohol Use: none Drug Use: none - Immunizations Immunizations Up to Date: Yes Hx Pneumococcal Vaccination: No History of Influenza Vaccine: No Physical Exam - Physical Exam General Appearance: Present: wd/wn, alert, mild distress Eye Exam: Normal inspection: bilateral, PERRL: bilateral Ears, Nose, Throat: Present: normal ENT inspection Neck: Present: normal inspection Respiratory: Present: no respiratory distress, normal breath sounds, lungs clear , accessory muscle use Cardiovascular/Chest: Present: regular rate, rhythm, no murmur Gastrointestinal/Abdominal: Present: normal bowel sounds, nontender, tenderness - mild suprapubic. Absent: guarding, rebound, mass, hernia Back Exam: Present: normal inspection, no CVA tenderness Extremity Exam: Present: normal inspection Neurological Exam: Present: alert Skin Exam: Present: normal color ED Progress - Vital Signs Vital Signs: Vital Signs 07/07/16 07/07/16 16:06 17:19 Temperature 36.7 C Pulse Rate 75 69 Respiratory 16 16 Rate Blood Pressure 125/77 149/88 O2 Sat by Pulse 98 98 Oximetry - Progress/Reassessment Chief Complaint: General Assessment Departure - Departure Clinical Impression: Abdominal pain, Constipation Disposition: Home self-care Condition: Good Instructions: Constipation, Adult, [id number], Abdominal Pain, Adult, Easy-to -Read Additional Instructions: drink 1 oz of Milk of Magnesia tonight. This may be repeated tomorrow if needed. Referrals: Anais Guerin DO [Primary Care Provider] -
== END 2016-07-07 18:46 | disposition home or self-care (01) ==
LOC: ER 15:59
DX: R10.30 Lower abdominal pain, unspecified (principal); K59.00 Constipation, unspecified; Z85.51 Personal history of malignant neoplasm of bladder; E78.5 Hyperlipidemia, unspecified; Z87.440 Personal history of urinary (tract) infections

== ENCOUNTER 2016-08-14 06:35 | Emergency (ER) | payer MEDICARE, MEDICAID ==
[2016-08-14] MEDS ORDERED: NORMAL SALINE 1,000 ML IV PRN (06:44)
--- NOTE | 2016-08-14 06:49 | ERNOTE ---
<LamontyamiletkareemTaiwo - Last Filed: 08/14/16 08:04> Abdominal HPI - Narrative Date of Service: 08/14/16 - General Chief Complaint: Abdominal Pain Time Seen by Provider: 08/14/16 06:46 Source: patient Exam Limitations: no limitations - Immun/Allergies/Home Medications Immunizatons: IMMUNIZATION HX Immunizations Up to Date Yes History of Influenza Vaccine No Hx Pneumococcal Vaccination No Allergies/Adverse Reactions: Allergies levofloxacin [From Levaquin] Allergy (Verified 08/14/16 06:47) Hives pseudoephedrine HCl [From Sudafed] Adverse Reaction (Mild, Verified 08/14/16 06: 47) NEVER SLEEP Sulfa (Sulfonamide Antibiotics) Adverse Reaction (Mild, Verified 08/14/16 06:47) "GO ON A HIGH" Home Medications: HOME MEDICATIONS Acetaminophen [Tylenol] 1,000 mg PO Q6H PRN 04/28/16 [Last Taken Unknown] Albuterol Sulfate [Ventolin Hfa] 2 puff IH Q4H PRN 04/28/16 [Last Taken Unknown] Atorvastatin Calcium [Lipitor] 10 mg PO HS 04/28/16 [Last Taken 04/27/16] Ferrous Sulfate [Iron] 650 mg PO DAILY 04/28/16 [Last Taken Unknown] Loperamide HCl [Imodium] 2 mg PO Q6H PRN 04/28/16 [Last Taken 04/28/16] Sennosides/Docusate Sodium [Senokot-S] 2 tab PO HS tablet 05/04/16 [Last Taken Unknown] L.acidoph,Paracasei, B.lactis [Probiotic] 1 each PO DAILY 08/14/16 [Last Taken Unknown] Potassium 1 each PO DAILY 08/14/16 [Last Taken Unknown] - History of Present Illness Narrative: This is a 56-year-old female who comes to the emergency department complaining of one day of increasing right lower quadrant abdominal pain. The patient says that she has had this pain gradually increasing and it is similar to episodes in the past for she has had a bowel obstruction. She has had multiple surgeries to release adhesions. The patient says that she had some much pain she was incontinent of urine twice today. She has also had copious amounts of watery diarrhea. She feels nauseated but has not vomited yet. No definite fever no chest pain shortness of breath no dizziness lightheadedness or any other somatic complaints Timing: getting worse Quality: severe, stabbing Activities at Onset: none Modifying Factors - (Improves): Present: other Modifying Factors - (Worsens): Present: other - none Associated Symptoms: Present: diarrhea-mucous, fatigue, nausea, loss of appetite Prior Abdominal Problems: Present: similar symptoms - with a bowel obstruction multiple times Review of Systems - Narrative Narrative: Except as above the remainder of the review of systems is otherwise negative - Review of Systems Constitutional: Present: no symptoms reported, See HPI EYE: Present: no symptoms reported ENT: Present: no symptoms reported Respiratory: Present: no symptoms reported Cardiology: Present: no symptoms reported Gastrointestinal/Abdominal: Present: See HPI, nausea, diarrhea, abdominal pain. Absent: vomiting Genitourinary: Present: other - comments of urine 2 Musculoskeletal: Present: no symptoms reported Skin: Present: no symptoms reported Neurological: Present: no symptoms reported Endocrine: Present: no symptoms reported Hematologic/Lymphatic: Present: no symptoms reported Psych: Present: no symptoms reported All Other Systems: All systems neg except as marked - Patient's Past Medical History Patient History - Medical: Renal Failure, UTI'S, Other Patient History - Cardiac/Respiratory: Hyperlipidemia, Other Patient History - Cancer: Bladder, Cervical, Radiation Therapy Patient History - Surgical Procedures: Hysterectomy, Other, Urology Patient History - Other: None - Family History Mother Family History - Medical: , Diabetes Type 2 Insulin Dependent Family History - Cardiac/Respiratory: History Unknown Family History - Cancer: History Unknown Father Family History - Medical: Diabetes Type 2 Insulin Dependent Family History - Cardiac/Respiratory: No pertinent hx, Hypertension Family History - Cancer: Prostate - Social History Living Situations: home Abuse History: No History of abuse Psych History: No pertinent hx Alcohol Use: none Drug Use: none - Immunizations Immunizations Up to Date: Yes Hx Pneumococcal Vaccination: No History of Influenza Vaccine: No Physical Exam - Physical Exam General Appearance: Present: wd/wn, alert, moderate distress - patient is in moderate pain distress Eye Exam: Normal inspection: bilateral, PERRL: bilateral, EOMI: bilateral Ears, Nose, Throat: Present: normal ENT inspection, normal pharynx Neck: Present: normal inspection, nontender Respiratory: Present: no respiratory distress, lungs clear Cardiovascular/Chest: Present: regular rate, rhythm Gastrointestinal/Abdominal: Present: other - patient has high-pitched bowel sounds. Her abdomen is exquisitely tender with guarding and rebound present in the right lower quadrant. Negative Rovsing sign. Negative Arshad's sign. Back Exam: Present: normal inspection, normal range of motion Extremity Exam: Present: normal inspection, non-tender, normal range of motion, no edema Neurological Exam: Present: alert, oriented, normal mood/affect, no motor/ sensory deficits Skin Exam: Present: normal color, warm/dry Lymphatic Exam: Present: no adenopathy ED Progress - Results and Orders Patient's Lab Results:: I have reviewed the patient's lab results. - Vital Signs Patient's Vital Signs:: I have reviewed the patient's vital signs. - X-Ray X-Ray #1 X-Ray: abdomen Interpretation: Interp. by me X-ray Comments: Patient has significant stool throughout nondilated loops of colon. No signs of small bowel obstruction. No air-fluid levels to indicate ileus highly suggestive of constipation/fecal retention - Progress/Reassessment Progress:: Unchanged Progress Note-Subjective: 08/14/16 07:40 The patient x-ray does not show any signs of a bowel obstruction. Her labs are extremely normal. Unremarkable. I'm going to start performing an enema. In a patient with abdominal pain normal labs and an essentially normal x-ray with the exception of retained stool proceeding immediately to CAT scan is probably not appropriate. After receiving the results of the enema my colleague, Dr. Ford, will make a decision on CAT scan or further testing. - Transfer of Care Physician Sign Out: Taiwo Pina Brief History: 56 YO female with Abd pain, nl labs, xray shows sig stool Receiving Physician: Elif Valdez Pending Results: Pain-control Expected Disposition: Admit Departure - Departure Clinical Impression: Abdominal pain, acute, right lower quadrant Disposition: Home self-care Condition: Stable Instructions: Abdominal Pain, Adult, Izzm-[id number] Additional Instructions: get back on your miralax and take it every day call Dr Guerin for follow up Referrals: Anais Guerin DO [Primary Care Provider] - <Elif Valdez - Last Filed: 08/14/16 15:59> Abdominal HPI - Immun/Allergies/Home Medications Immunizatons: IMMUNIZATION HX Immunizations Up to Date Yes History of Influenza Vaccine No Hx Pneumococcal Vaccination No ED Progress - Results and Orders Patient's Lab Results:: I have reviewed the patient's lab results. - Vital Signs Patient's Vital Signs:: I have reviewed the patient's vital signs. Vital Signs: Vital Signs 08/14/16 08/14/16 08/14/16 06:41 07:18 07:40 Temperature 36.9 C Pulse Rate 101 H 78 79 Respiratory 20 17 13 Rate Blood Pressure 144/89 139/72 136/71 O2 Sat by Pulse 98 97 99 Oximetry 08/14/16 08/14/16 08/14/16 08:10 08:34 08:48 Temperature Pulse Rate 93 88 85 Respiratory 16 23 H 15 Rate Blood Pressure 145/85 161/80 170/83 O2 Sat by Pulse 95 94 Oximetry - CT/Ultrasound CT/Ultrasound Narrative: CT abdomen/pelvis: normal appendix, no bowel obstruction, normal bladder, no free fluid in pelvis - Progress/Reassessment Progress Note-Subjective: 08/14/16 08:56 pain worse since enema, rates pain 10/10 currently 20 minutes after toradol, abdomen tender throughout, max RLQ Patient contacted Dr Guerin. She states that patient has been using vaginal dilator and she is concerned that two episodes of bladder rupture were correlated to trauma by dilator use 08/14/16 12:[address] results with patient and family patient very comfortable and relaxed, laughing discussed constipation as most likely diagnosis, restart daily miralax, patient states that she uses the dilator weekly 08/14/16 12:[address] Guerin on patient
[2016-08-14 07:21] LABS: Hematocrit 45.7 % (37.0-47.0); Hemoglobin 14.8 gm/dL (12.5-16.0); Mean Cell Volume 90.7 fl (78-100); Mean Corpuscular Hemoglobin 29.4 pg (27-31); Mean Corpuscular Hgb Conc 32.4 g/dl (32-36); Neutrophil # 6.9 K/mm3 (1.3-6.0); Neutrophil % 71.9 % (42-75.0); Platelet Count 181 K/mm3 (150-450); Red Blood Count 5.04 M/mm3 (4.2-5.4); White Blood Count 9.6 K/mm3 (4.0-10.5)
[2016-08-14 07:25] LABS: Urine Bilirubin Negative (NEGATIVE); Urine Blood 50 /ul (NEGATIVE); Urine Ketone Negative (NEGATIVE); Urine Nitrite Negative (NEGATIVE); Urine Protein Negative (NEGATIVE); Urine Specific Gravity <=1.005 SP.GR. (1.005-1.010); Urine Urobilinogen Normal (NORMAL)
[2016-08-14 07:31] LABS: Urine Appearance Clear; Urine Bacteria None Seen; Urine Color Yellow; Urine RBC None Seen /hpf (0-5); Urine WBC TRACE /hpf (0-5)
--- OUTSIDE RECORDS SUMMARY | 2016-08-14 07:31 | XMS REPORT | Continuity of Care Document ---
:1960 Author Organization [facility] [place] [address] Care Team Providers Name Role Phone Unavailable Primary Care Provider Unavailable Source Comments This disclosure is being made pursuant to the [employer] program and maynot contain all information available regarding this patient.[facility] Active Allergies and Adverse Reactions Not on [...]
[2016-08-14 07:34] LABS: Albumin * 3.8 gm/dl (3.4-5.0); BUN/Creatinine Ratio 13.7 (9.0-21.6); Bilirubin, Total 0.4 mg/dL (0.0-1.1); Ca. Corrected For Albumin 9.4 mg/dL (8.4-10.2); Calcium * 9.6 mg/dL (7.9-10.9); Carbon Dioxide 20.1 mmol/L (24-32.6); Potassium 4.1 mmol/L (3.4-4.6)
[2016-08-14] MEDS ORDERED: DIATRIZOATE MEGLU/DIATRIZO SOD 30 ML BTL PO ONE (08:08)
[2016-08-14] MEDS ORDERED: ONDANSETRON HCL/PF 2 MG/ML VIAL IV ONE ×2 (08:18→11:28)
[2016-08-14] MEDS ORDERED: ONDANSETRON HCL/PF 2 MG/ML VIAL ONE ×2 (08:18→11:26)
[2016-08-14] MEDS ORDERED: DIATRIZOATE MEGLU/DIATRIZO SOD 30 ML BTL ONE (08:22)
[2016-08-14] MEDS ORDERED: KETOROLAC TROMETHAMINE 30 MG/ML VIAL IV ONE (08:36)
[2016-08-14] MEDS ORDERED: KETOROLAC TROMETHAMINE 30 MG/ML VIAL ONE (08:38)
[2016-08-14] MEDS ORDERED: HYDROmorphone HCL 1 MG/ML DISP.SYRIN IV ONE ×2 (08:57→11:14)
[2016-08-14] MEDS ORDERED: HYDROmorphone HCL 1 MG/ML DISP.SYRIN ONE ×2 (09:04→11:15)
[2016-08-14 12:57] VITALS: BP 113/64
== END 2016-08-14 12:55 | disposition home or self-care (01) ==
LOC: ER 06:35
DX: R10.31 Right lower quadrant pain (principal); Z85.51 Personal history of malignant neoplasm of bladder; Z85.41 Personal history of malignant neoplasm of cervix uteri; Z92.3 Personal history of irradiation; D64.9 Anemia, unspecified
CPT/HCPCS: 36415; 74020; 74177; 80053; 81001; 83690; 85025; 96374; 96375; 99284; J2405

== ENCOUNTER 2016-09-09 03:39 | Inpatient (IN) | payer MEDICARE, MEDICAID ==
[2016-09-09] MEDS ORDERED: ONDANSETRON HCL/PF 2 MG/ML VIAL IV ONE ×2 (03:48→07:51)
[2016-09-09 04:26] LABS: Hematocrit 41.8 % (37.0-47.0); Hemoglobin 14.3 gm/dL (12.5-16.0); Mean Cell Volume 86.7 fl (78-100); Mean Corpuscular Hemoglobin 29.7 pg (27-31); Mean Corpuscular Hgb Conc 34.2 g/dl (32-36); Mean Platelet Volume 9.7 fl (6.0-9.5); Neutrophil # 8.5 K/mm3 (1.3-6.0); Neutrophil % 75.8 % (42-75.0); Platelet Count 177 K/mm3 (150-450); Red Blood Count 4.82 M/mm3 (4.2-5.4); Red Cell Distribution Width 12.5 % (11.5-14.0); White Blood Count 11.1 K/mm3 (4.0-10.5)
[2016-09-09 04:39] LABS: Albumin * 3.9 gm/dl (3.4-5.0); Anion Gap 15.7 mmol/L (6.8-13.8); BUN/Creatinine Ratio 9.4 (9.0-21.6); Bilirubin, Total 0.3 mg/dL (0.0-1.1); Ca. Corrected For Albumin 9.3 mg/dL (8.4-10.2); Calcium * 9.5 mg/dL (7.9-10.9); Carbon Dioxide 25.2 mmol/L (24-32.6); Potassium 3.9 mmol/L (3.4-4.6); Total Protein 6.9 gm/dL (6.2-8.2)
[2016-09-09] MEDS ORDERED: MORPHINE SULFATE 10 MG/ML SYRG ONE (04:53)
[2016-09-09] MEDS: MORPHINE SULFATE 10 MG/ML SYRG IM ONE ×3 (04:55→05:28)
[2016-09-09] MEDS ORDERED: ONDANSETRON HCL/PF 2 MG/ML VIAL ONE ×2 (05:21→07:48)
[2016-09-09 07:48] LABS: Urine Bilirubin Negative (NEGATIVE); Urine Ketone 5 mg/dL (NEGATIVE); Urine Nitrite Negative (NEGATIVE); Urine Protein Negative (NEGATIVE); Urine Specific Gravity >=1.030 SP.GR. (1.005-1.010); Urine Urobilinogen Normal (NORMAL)
[2016-09-09 08:01] LABS: Urine Appearance Clear; Urine Bacteria TRACE; Urine Blood 5 /ul (NEGATIVE); Urine Color Yellow; Urine RBC None Seen /hpf (0-5); Urine WBC None Seen /hpf (0-5)
[2016-09-09 08:02] LABS: Urine Amorphous Sediment Few - 1+ (NONE-FEW)
--- NOTE | 2016-09-09 08:42 | ERNOTE ---
Abdominal HPI - Narrative Date of Service: 09/09/16 - General Chief Complaint: Abdominal Pain Time Seen by Provider: 09/09/16 03:46 Source: patient, EMR Exam Limitations: no limitations - Immun/Allergies/Home Medications Immunizatons: IMMUNIZATION HX Immunizations Up to Date Yes History of Influenza Vaccine No Hx Pneumococcal Vaccination No Allergies/Adverse Reactions: Allergies levofloxacin [From Levaquin] Allergy (Verified 08/14/16 06:47) Hives pseudoephedrine HCl [From Sudafed] Adverse Reaction (Mild, Verified 08/14/16 06: 47) NEVER SLEEP Sulfa (Sulfonamide Antibiotics) Adverse Reaction (Mild, Verified 08/14/16 06:47) "GO ON A HIGH" Home Medications: HOME MEDICATIONS Acetaminophen [Tylenol] 1,000 mg PO Q6H PRN 04/28/16 [Last Taken Unknown] Albuterol Sulfate [Ventolin Hfa] 2 puff IH Q4H PRN 04/28/16 [Last Taken Unknown] Atorvastatin Calcium [Lipitor] 10 mg PO HS 04/28/16 [Last Taken 04/27/16] Ferrous Sulfate [Iron] 650 mg PO DAILY 04/28/16 [Last Taken Unknown] Sennosides/Docusate Sodium [Senokot-S] 2 tab PO HS tablet 05/04/16 [Last Taken Unknown] Cholecalciferol (Vitamin D3) [Vitamin D] 2,000 unit PO DAILY 09/09/16 [Last Taken Unknown] Ondansetron HCl [Zofran] 4 mg PO QID PRN 09/09/16 [Last Taken Unknown] - Pain Score Pain Score #1 Pain Score: 10 Abdominal Pain Onset Location: RLQ, suprapubic Pain Radiation: no radiation - History of Present Illness Narrative: 56-year-old female established patient of Dr. Guerin who presents to the emergency room with severe abdominal pain she reports she started having pain earlier in the day by 2 AM this morning she had such severe pain that she was unable to tolerate the pain. The patient reported some emesis decreased oral intake on her last bowel movement had been in the morning. Patient denied fevers chills. Patient reports significant malaise. Patient rates her pain a 10 out of 10 in the right lower quadrant. Past medical history is reviewed as per medical record. But in general reveals hyperlipidemia history of bladder cancer history of small bowel obstruction history of abdominal ascites and history of radiation enteritis. Date (Duration): 09/07/16 Time (Timing): 02:00 Timing: getting worse Quality: severe Activities at Onset: rest Modifying Factors - (Improves): Present: rest, other - Nothing is Modifying Factors - (Worsens): Present: analgesics Associated Symptoms: Present: denies symptoms Prior Abdominal Problems: Present: other - patient has had previous surgeries for ruptured bladder adhesions and lysis of adhesions and previous radiation induced adhesions as well. Prior Treatment: Present: treated by physician - patient was seen August 14 and admitted for close observation and she was just seen also in April for admission., recently hospitalized Review of Systems - Review of Systems Constitutional: Present: malaise, decreased activity level EYE: Present: no symptoms reported ENT: Present: no symptoms reported Respiratory: Present: no symptoms reported Cardiology: Present: no symptoms reported Gastrointestinal/Abdominal: Present: See HPI, nausea, vomiting, abdominal pain Genitourinary: Present: no symptoms reported, See HPI Musculoskeletal: Present: no symptoms reported Skin: Present: no symptoms reported Neurological: Present: no symptoms reported Endocrine: Present: no symptoms reported Hematologic/Lymphatic: Present: no symptoms reported Psych: Present: no symptoms reported All Other Systems: All systems neg except as marked - Narrative Narrative: all hx , meds, allergies and psh, and , reviewed - Patient's Past Medical History Patient History - Medical: Renal Failure, UTI'S, Other Patient History - Cardiac/Respiratory: Hyperlipidemia, Other Patient History - Cancer: Bladder, Cervical, Radiation Therapy Patient History - Surgical Procedures: Hysterectomy, Other, Urology Patient History - Other: None - Family History Mother Family History - Medical: , Diabetes Type 2 Insulin Dependent Family History - Cardiac/Respiratory: History Unknown Family History - Cancer: History Unknown Father Family History - Medical: Diabetes Type 2 Insulin Dependent Family History - Cardiac/Respiratory: No pertinent hx, Hypertension Family History - Cancer: Prostate - Social History Living Situations: alone Abuse History: No History of abuse Psych History: No pertinent hx Smoking Status: Never smoker Alcohol Use: none Drug Use: none - Immunizations Immunizations Up to Date: Yes Hx Pneumococcal Vaccination: No History of Influenza Vaccine: No Physical Exam - Physical Exam General Appearance: Present: wd/wn, alert, no apparent distress Head Exam: Present: normal inspection, no evidence of injury Eye Exam: Normal inspection: bilateral, PERRL: bilateral, EOMI: bilateral Ears, Nose, Throat: Present: normal ENT inspection, normal pharynx Neck: Present: normal inspection, nontender Respiratory: Present: no respiratory distress, normal breath sounds, no accessory muscle use, chest nontender Cardiovascular/Chest: Present: no murmur, normal peripheral pulses Gastrointestinal/Abdominal: Present: normal bowel sounds, tenderness - rlq ,no peritoneal signs , Psoas sign Rectal Exam: Present: deferred Back Exam: Present: normal range of motion, no CVA tenderness, CVA tenderness (R ), CVA tenderness (L) DTR: N=norm/NB=norm/brisk/A=abs/DD=dull/dimin/HC=hyperactive: Bicep (R): Normal , Bicep (L): Normal Skin Exam: Present: pallor Lymphatic Exam: Present: no adenopathy Pelvic Exam: Present: deferred ED Progress - Results and Orders Patient's Lab Results:: I have reviewed the patient's lab results. Results and Orders: Laboratory Tests 09/09/16 09/09/16 09/09/16 03:48 03:48 04:02 WBC 11.1 H RBC 4.82 Hgb 14.3 Hct 41.8 MCV 86.7 MCH 29.7 MCHC 34.2 RDW 12.5 Plt Count 177 MPV 9.7 H Immature Gran % (Auto) 0.40 Immature Gran # (Auto) 0.04 H Neutrophils % 75.8 H Lymphocytes % 18.5 L Monocytes % 4.7 Eosinophils % 0.3 Basophils % 0.3 Nucleated RBC % 0.0 Neutrophils # 8.5 H Lymphocytes # 2.1 Monocytes # 0.5 Eosinophils # 0.0 Absolute Basophils 0.0 pCO2 pO2 HCO3 Total CO2 Base Excess ABG pH ABG O2 Sat (Measured) Sodium 142 Plasma Sodium 142 Potassium 3.9 Chloride 105 Carbon Dioxide 25.2 Anion Gap 15.7 H BUN 17 Creatinine 1.80 H D Est GFR (Non-Af Amer) 31 L D BUN/Creatinine Ratio 9.4 Random Glucose 122 H Lactic Acid, Venous 2.2 H* Calcium 9.5 Calcium Adj for Albumin 9.3 Total Bilirubin 0.3 AST 14 ALT 24 Alkaline Phosphatase 81 Total Protein 6.9 Albumin 3.9 Amylase 55 Lipase 128 Urine Color Urine Appearance Urine pH Ur Specific [place] Urine Protein Urine Glucose (UA) Urine Ketones Urine Blood Urine Nitrate Urine Bilirubin Urine Urobilinogen Ur Leukocyte Esterase Urine RBC Urine WBC Ur Epithelial Cells Amorphous Sediment Urine Bacteria Urine Culture Comments 09/09/16 09/09/16 05:38 07:41 WBC RBC Hgb Hct MCV MCH MCHC RDW Plt Count MPV Immature Gran % (Auto) Immature Gran # (Auto) Neutrophils % Lymphocytes % Monocytes % Eosinophils % Basophils % Nucleated RBC % Neutrophils # Lymphocytes # Monocytes # Eosinophils # Absolute Basophils pCO2 35.3 pO2 83.5 HCO3 19.8 L Total CO2 20.8 Base Excess -4.8 L ABG pH 7.37 ABG O2 Sat (Measured) 96.0 Sodium Plasma Sodium Potassium Chloride Carbon Dioxide Anion Gap BUN Creatinine Est GFR (Non-Af Amer) BUN/Creatinine Ratio Random Glucose Lactic Acid, Venous Calcium Calcium Adj for Albumin Total Bilirubin AST ALT Alkaline Phosphatase Total Protein Albumin Amylase Lipase Urine Color Yellow Urine Appearance Clear Urine pH 5.0 Ur Specific [place] >=1.030 Urine Protein Negative Urine Glucose (UA) Negative Urine Ketones 5 Urine Blood 5 H Urine Nitrate Negative Urine Bilirubin Negative Urine Urobilinogen Normal Ur Leukocyte Esterase Negative Urine RBC None seen Urine WBC None seen Ur Epithelial Cells 0-5 Amorphous Sediment Few - 1+ Urine Bacteria Trace Urine Culture Comments Culture to follow - Vital Signs Patient's Vital Signs:: I have reviewed the patient's vital signs. Vital Signs: Vital Signs 09/09/16 09/09/16 09/09/16 03:40 04:10 04:45 Temperature 36.2 C L Pulse Rate 80 88 92 Respiratory 20 18 16 Rate Blood Pressure 133/73 144/76 152/78 O2 Sat by Pulse 97 95 95 Oximetry 09/09/16 09/09/16 05:35 07:37 Temperature 36.5 C Pulse Rate 84 91 Respiratory 16 16 Rate Blood Pressure 156/86 139/97 O2 Sat by Pulse 94 96 Oximetry - EKG EKG: NSR EKG read: Reviewed by me EKG Comments: EKG was performed on approximately 4:23 AM patient's normal sinus rhythm with a rate of 76 tracing demonstrates nonspecific none STEMI pattern essentially normal ECG a previous tracing available 04/20/2016. - X-Ray X-Ray #1 X-Ray: abdomen Interpretation: Interp. by me, Reviewed by , Santhosh w/ radiologist X-ray Comments: KUB was reviewed and demonstrates a nonspecific bowel gas pattern is somewhat grouped towards the right lower quadrant no evidence of acute obstruction is noted. But nonspecific bowel gas pattern. - Progress/Reassessment Chief Complaint: Abdominal Pain Progress:: Improved - post IV fluids IV analgesic and and IV antiemetics. - Transfer of Care Expected Disposition: Admit Plan - Plan Plan: Patient s seen in consultation by Dr. ALONSO, general surgeon for consultation regarding IV access as well as regarding the abdominal pain. Patient is case was discussed with partial partial and he is except and she excuse me is accepted for admission observation status. Departure - Departure Clinical Impression: Abdominal pain, Abdominal pain, acute, right lower quadrant, Partial small bowel obstruction Disposition: [facility] Condition: Good
--- NOTE | 2016-09-09 08:44 | OR ---
Anesthesia Pre Procedure Eval Date of Service: 09/09/16 Pre Procedure Evaluation: Last Vital Signs Temp 36.5 C 09/09/16 05:35 Pulse 91 09/09/16 07:37 Resp 16 09/09/16 07:37 BP 139/97 09/09/16 07:37 Pulse Ox 96 09/09/16 07:37 O2 Oxygen Delivery Method Room Air ANESTHESIA PROCEDURE NOTE Date of Procedure: 09/09/2016 Time of procedure: 8:30 AM. Performed by: JANIE Carvajal CRNA, MSN Preprocedure diagnosis: Partial bowel obstruction, dehydration, lack of IV access. Post procedure diagnosis: Same. Procedure: Venipuncture for IV access. Indications: Dehydration partial bowel obstruction. Findings: See below. Details of the procedure: With the patient in Trendelenburg the right neck was prepped with Betadine and alcohol, 0.1 mL of 1% lidocaine solution was injected at the intended IV site. A #18-gauge IV was inserted in the right external jugular vein, the site was dressed and secured. It was easy to aspirate blood and the ongoing flushed easily however because of the location of the IV will probably be quite positional. EBL: Minimal. Fluids: N/A. Specimen: N/A. Post procedure condition: The patient tolerated the procedure well. No complications were noted. Thank you for this consultation. Mehul Wagner CRNA, ARNP, MSN Home Medications: HOME MEDICATIONS Acetaminophen [Tylenol] 1,000 mg PO Q6H PRN 04/28/16 [Last Taken Unknown] Albuterol Sulfate [Ventolin Hfa] 2 puff IH Q4H PRN 04/28/16 [Last Taken Unknown] Atorvastatin Calcium [Lipitor] 10 mg PO HS 04/28/16 [Last Taken 04/27/16] Ferrous Sulfate [Iron] 650 mg PO DAILY 04/28/16 [Last Taken Unknown] Sennosides/Docusate Sodium [Senokot-S] 2 tab PO HS tablet 05/04/16 [Last Taken Unknown] Cholecalciferol (Vitamin D3) [Vitamin D] 2,000 unit PO DAILY 09/09/16 [Last Taken Unknown] Ondansetron HCl [Zofran] 4 mg PO QID PRN 09/09/16 [Last Taken Unknown]
--- OUTSIDE RECORDS SUMMARY | 2016-09-09 08:47 | XMS REPORT | Clinical Summary ---
:1960 Author Organization [facility] [place] [address] Care Team Providers Name Role Phone Unavailable Primary Care Provider Unavailable Source Comments This disclosure is being made pursuant to the [employer] program and maynot contain all information available regarding this patient.[facility] Allergies Not on File Current Medications Be aware that medications may not be up to date as of this document. Alwaysverify current medications with the patient. Not on file Active Problems Not on file Social History Tobacco Use Types Packs/Day Years Used Date Never Assessed Sex Assigned at Date Recorded Not on file Last Filed Vital Signs Not on file Plan of Treatment Health Maintenance Due Date Last Done Comments Tetanus/Pertussis (1 - Tdap) 1981 Pap Smear 06/16/1983 Colonoscopy 2012 Mammogram 2012 Well Adult Visit 2012 INFLUENZA IMMUNIZATION (#1) 2015 Results Not on filefrom Last 3 Months
[2016-09-09] MEDS ORDERED: MORPHINE SULFATE 4 MG/ML SYRG IV ONE (08:57)
[2016-09-09] MEDS ORDERED: MORPHINE SULFATE 4 MG/ML SYRG ONE (08:58)
[2016-09-09] MEDS: NORMAL SALINE 1,000 ML IV PRN ×2 (08:59→17:49)
--- NOTE | 2016-09-09 11:03 | HP ---
Chief Complaint - Chief Complaint Date of Service: 09/09/16 Time of Service: 10:54 Chief Complaint: abdominal pain History of Present Illness: Darlene Campbell, is a 56-year-old white female, patient of Dr. Guerin, with previous medical history of bladder cancer status post chemotherapy and radiotherapy, bladder perforation status post repair, small bowel obstruction, radiation colitis, who was admitted on 09/09/2016 because of severe abdominal pain. The patient woke up on the morning of admission around 2 AM with severe sharp lower abdominal pain, which she rated as 10 over 10. She said that she took MiraLAX with it and she vomited everything out again. She then went or emergency room where abdominal x-ray showed nonspecific gas bowel pattern. The emergency room consulted Dr. Celia russ who felt that patient could be having partial small bowel obstruction and recommended admission for bowel rest and IV fluids. - Patient's Past Medical History Patient History - Medical: Osteoporosis, Renal Failure, UTI'S, Other Patient History - Cardiac/Respiratory: Hyperlipidemia, Other Patient History - Cancer: Bladder, Cervical, Radiation Therapy Patient History - Surgical Procedures: Back Surgery, Colonoscopy, Hysterectomy, Other, Urology Patient History - Other: None - Family History Mother Family History - Medical: , Arthritis, Kidney stone Family History - Cardiac/Respiratory: Hypertension, Hyperlipidemia Family History - Cancer: History Unknown Father Family History - Medical: , Arthritis, Diabetes Type 1 Family History - Cardiac/Respiratory: No pertinent hx, CVA/Stroke, Hypertension , Hyperlipidemia Family History - Cancer: Prostate - Social History Living Situations: home Abuse History: No History of abuse Psych History: No pertinent hx Smoking Status: Never smoker Alcohol Use: none Drug Use: none - Immunizations Immunizations Up to Date: Yes Hx Pneumococcal Vaccination: No History of Influenza Vaccine: No Review Of Systems (GEN) - Review of Systems Generalized/Overall Review: Absent: Chills, Fever EENTM: Present: No Symptoms Reported Respiratory: Absent: Cough, Shortness of Breath, Orthopnea Cardiac: Absent: Chest Pain, Edema, Palpitations Abdominal: Present: Nausea, Vomiting, Abdominal Pain Genitourinary: Absent: Urgency, Frequency Musculoskeletal: Absent: Back Pain Immunizations: IMMUNIZATION HX Immunizations Up to Date Yes History of Influenza Vaccine No Hx Pneumococcal Vaccination No Allergies/Adverse Reactions: Allergies Allergy/AdvReac Type Severity Reaction Status Date / Time levofloxacin [From Levaquin] Allergy Hives Verified 09/09/16 10:20 pseudoephedrine HCl AdvReac Mild NEVER SLEEP Verified 09/09/16 10:20 [From Joycelyn] Sulfa (Sulfonamide AdvReac Mild "GO ON A Verified 09/09/16 10:20 Antibiotics) HIGH" Home Medications: HOME MEDICATIONS Acetaminophen [Tylenol] 1,000 mg PO Q6H PRN 04/28/16 [Last Taken Unknown] Albuterol Sulfate [Ventolin Hfa] 1 - 2 puff IH Q4H PRN 04/28/16 [Last Taken Unknown] Atorvastatin Calcium [Lipitor] 10 mg PO HS 04/28/16 [Last Taken 04/27/16] Ferrous Sulfate [Iron] 650 mg PO DAILY 04/28/16 [Last Taken Unknown] Sennosides/Docusate Sodium [Senokot-S] 2 tab PO HS tablet 05/04/16 [Last Taken Unknown] Cholecalciferol (Vitamin D3) [Vitamin D] 2,000 unit PO DAILY 09/09/16 [Last Taken Unknown] Miconazole Nitrate [Desenex] 1 appl TP PRN PRN 09/09/16 [Last Taken Unknown] Ondansetron HCl [Zofran] 4 mg PO QID PRN 09/09/16 [Last Taken Unknown] Exam - Exam Vital Signs: Vital Signs - Last Taken Temp 36.5 C 09/09/16 05:35 Pulse 89 09/09/16 09:19 Resp 16 09/09/16 09:02 BP 165/101 09/09/16 09:02 Pulse Ox 95 09/09/16 09:02 Diagnostic Studies: Laboratory Results WBC 11.1 K/mm3 (4.0-10.5) H 09/09/16 03:48 RBC 4.82 M/mm3 (4.2-5.4) 09/09/16 03:48 Hgb 14.3 gm/dL (12.5-16.0) 09/09/16 03:48 Hct 41.8 % (37.0-47.0) 09/09/16 03:48 MCV 86.7 fl (78-100) 09/09/16 03:48 MCH 29.7 pg (27-31) 09/09/16 03:48 MCHC 34.2 g/dl (32-36) 09/09/16 03:48 RDW 12.5 % (11.5-14.0) 09/09/16 03:48 Plt Count 177 K/mm3 (150-450) 09/09/16 03:48 MPV 9.7 fl (6.0-9.5) H 09/09/16 03:48 Immature Gran % (Auto) 0.40 % (0.001-0.429) 09/09/16 03:48 Immature Gran # (Auto) 0.04 K/mm3 (0.000-0.0310) H 09/09/16 03:48 Neutrophils % 75.8 % (42-75.0) H 09/09/16 03:48 Lymphocytes % 18.5 % (20-51) L 09/09/16 03:48 Monocytes % 4.7 % (0.0-9) 09/09/16 03:48 Eosinophils % 0.3 % (0.0-3.0) 09/09/16 03:48 Basophils % 0.3 % (0.0-1.0) 09/09/16 03:48 Nucleated RBC % 0.0 k/mm3 (0-1) 09/09/16 03:48 Neutrophils # 8.5 K/mm3 (1.3-6.0) H 09/09/16 03:48 Lymphocytes # 2.1 k/mm3 (1.5-3.5) 09/09/16 03:48 Monocytes # 0.5 k/mm3 (0.0-1.0) 09/09/16 03:48 Eosinophils # 0.0 k/mm3 (0.0-0.7) 09/09/16 03:48 Absolute Basophils 0.0 k/mm3 (0.0-0.1) 09/09/16 03:48 pCO2 35.3 mmHg (32.0-45.0) 09/09/16 05:38 pO2 83.5 mmHg (83.0-108.0) 09/09/16 05:38 HCO3 19.8 mmol/L (21.0-28.0) L 09/09/16 05:38 Total CO2 20.8 mmol/L (19.0-24.0) 09/09/16 05:38 Base Excess -4.8 mmol/L (-2.0-3.0) L 09/09/16 05:38 ABG pH 7.37 (7.35-7.45) 09/09/16 05:38 ABG O2 Sat (Measured) 96.0 % (94.0-98.0) 09/09/16 05:38 Sodium 142 mmol/L (132-142) 09/09/16 03:48 Plasma Sodium 142 mmol/L (130-142) 09/09/16 03:48 Potassium 3.9 mmol/L (3.4-4.6) 09/09/16 03:48 Chloride 105 mmol/L (97-106) 09/09/16 03:48 Carbon Dioxide 25.2 mmol/L (24-32.6) 09/09/16 03:48 Anion Gap 15.7 mmol/L (6.8-13.8) H 09/09/16 03:48 BUN 17 mg/dL (3-23) 09/09/16 03:48 Creatinine 1.80 mg/dL (0.4-1.4) H D 09/09/16 03:48 Est GFR (Non-Af Amer) 31 mL/min (60-130) L D 09/09/16 03:48 BUN/Creatinine Ratio 9.4 (9.0-21.6) 09/09/16 03:48 Random Glucose 122 mg/dL (70-110) H 09/09/16 03:48 Lactic Acid, Venous 2.2 mmol/L (0.4-1.9) H* 09/09/16 04:02 Calcium 9.5 mg/dL (7.9-10.9) 09/09/16 03:48 Calcium Adj for Albumin 9.3 mg/dL (8.4-10.2) 09/09/16 03:48 Total Bilirubin 0.3 mg/dL (0.0-1.1) 09/09/16 03:48 AST 14 U/L (0-48) 09/09/16 03:48 ALT 24 U/L (19-67) 09/09/16 03:48 Alkaline Phosphatase 81 U/L (50-170) 09/09/16 03:48 Total Protein 6.9 gm/dL (6.2-8.2) 09/09/16 03:48 Albumin 3.9 gm/dl (3.4-5.0) 09/09/16 03:48 Amylase 55 U/L (25-115) 09/09/16 03:48 Lipase 128 U/L (73-393) 09/09/16 03:48 Urine Color Yellow 09/09/16 07:41 Urine Appearance Clear 09/09/16 07:41 Urine pH 5.0 pH (5.0-7.0) 09/09/16 07:41 Ur Specific [place] >=1.030 SP.GR. (1.005-1.010) 09/09/16 07:41 Urine Protein Negative mg/dL (NEGATIVE) 09/09/16 07:41 Urine Glucose (UA) Negative mg/dL (NEGATIVE) 09/09/16 07:41 Urine Ketones 5 mg/dL (NEGATIVE) 09/09/16 07:41 Urine Blood 5 /ul (NEGATIVE) H 09/09/16 07:41 Urine Nitrate Negative (NEGATIVE) 09/09/16 07:41 Urine Bilirubin Negative mg/dl (NEGATIVE) 09/09/16 07:41 Urine Urobilinogen Normal EU/dl (NORMAL) 09/09/16 07:41 Ur Leukocyte Esterase Negative /ul (NEGATIVE) 09/09/16 07:41 Urine RBC None seen /hpf (0-5) 09/09/16 07:41 Urine WBC None seen /hpf (0-5) 09/09/16 07:41 Ur Epithelial Cells 0-5 /hpf (0-5) 09/09/16 07:41 Amorphous Sediment Few - 1+ (NONE-FEW) 09/09/16 07:41 Urine Bacteria Trace (NONE) 09/09/16 07:41 Urine Culture Comments Culture to follow 09/09/16 07:41 Assessment/Plan - Assessment/Plan (1) Abdominal pain Assessment: likely due to PSBO, continue with NPO and IVF and pain coverage. Problem: Acute (2) Partial small bowel obstruction Assessment: continue NPO. General surgery on consult. Problem: Acute (3) Bladder cancer Problem: Chronic (4) Hyperlipidemia Problem: Chronic Qualifiers: (5) Radiation enteritis Problem: Chronic (6) Acute renal failure (ARF) Assessment: Cr 1.8 form previous of 0.9. em prerenal. will continue with IVF. Problem: Acute
[2016-09-09] MEDS ORDERED: ALBUTEROL SULFATE 200 PUFF INHALER IH PRN (11:04)
[2016-09-09] MEDS ORDERED: ALBUTEROL SULFATE 2.5 MG/3 ML VIAL.NEB IH PRN (11:36)
[2016-09-09] MEDS: MORPHINE SULFATE 4 MG/ML SYRG IV PRN ×3 (11:49→17:24)
[2016-09-09] MEDS: ONDANSETRON HCL/PF 2 MG/ML VIAL IV PRN ×2 (12:26→23:38)
[2016-09-09] MEDS: PANTOPRAZOLE SODIUM 40 MG in NORMAL SALINE 100 ML IV SCH (13:45)
[2016-09-10] MEDS: NORMAL SALINE 1,000 ML IV PRN (01:42)
[2016-09-10] MEDS: MORPHINE SULFATE 4 MG/ML SYRG IV PRN ×3 (02:27→09:48)
[2016-09-10] MEDS: ONDANSETRON HCL/PF 2 MG/ML VIAL IV PRN (06:30)
[2016-09-10] MEDS ORDERED: BISACODYL 10 MG SUPP.RECT RC ONE (08:44)
[2016-09-10] MEDS ORDERED: BISACODYL 5 MG TABLET.DR PO ONE (08:44)
--- NOTE | 2016-09-10 08:49 | PN ---
Subjective - Date and Time Seen Date: 09/10/16 Time: 08:45 Subjective Narrative: Patient has not vomitted but at times nauseous. No passage of gas or BM yet. Discussed with general surgery- will do trial of dulcolax, Objective - Review of Systems Generalized/Overall Review: Denies: Chills EENTM: Reports: No Symptoms Reported Respiratory: Denies: Cough, Shortness of Breath, Orthopnea Cardiac: Denies: Chest Pain, Palpitations Abdominal: Reports: Nausea, Abdominal Pain. Denies: Vomiting Genitourinary Symptoms: Denies: Urgency, Frequency Musculoskeletal Complaints: Denies: Joint Pain - Vitals Vitals: Last Vital Signs Temp 35.3 C L 09/10/16 07:05 Pulse 101 H 09/10/16 07:05 Resp 20 09/10/16 07:05 BP 156/94 09/10/16 07:05 Pulse Ox 94 09/10/16 07:05 - Exam Constitutional: Present: Alert, Oriented x3, Acute distress ENT Exam: Present: hearing grossly normal Neck: Present: supple Respiratory: Present: chest non-tender Cardiovascular/Chest: Present: regular rate, rhythm, no JVD, no murmur Abdomen: Present: no rebound tenderness, tender, firm, hypoactive Extremity: Present: no pedal edema, no calf tenderness Assessment/Plan - Problems/Diagnosis (1) Abdominal pain Problem: Acute Narrative: improved. PSBO. Follow up AXR- stool retention. GS- unlikely PSBO. trial of dulcolax. ADDENDUM: 10:43- labs came back- WBC -back to normal but Cr up to 3.8. Patient says she has not urinated since yesterday. 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 She says this feels like when she had her bladder perofrations the last time. She is requesting to be transferred to [facility]. will get ZOEY in the meantime. Dr. Yang will try to do a rice cath. (2) Partial small bowel obstruction Problem: Acute Narrative: AXR- air filled distended loops of bowel. stool retention. start clear liquids and dulcolax PO/RC x 1. (3) Bladder cancer Problem: Chronic (4) Hyperlipidemia Problem: Chronic Qualifiers: (5) Radiation enteritis Problem: Chronic (6) Acute renal failure (ARF) Problem: Acute Narrative: ADDENDUM: Cr is getting worst despite hydration. likely postrenal than prerenal. will do a ZOEY. Dr. Yang will try putting a rice cath.
[2016-09-10 09:47] LABS: Hematocrit 45.2 % (37.0-47.0); Hemoglobin 15.1 gm/dL (12.5-16.0); Mean Cell Volume 87.9 fl (78-100); Mean Corpuscular Hemoglobin 29.4 pg (27-31); Mean Corpuscular Hgb Conc 33.4 g/dl (32-36); Neutrophil # 7.9 K/mm3 (1.3-6.0); Neutrophil % 76.4 % (42-75.0); Platelet Count 193 K/mm3 (150-450); Red Blood Count 5.14 M/mm3 (4.2-5.4); Red Cell Distribution Width 12.9 % (11.5-14.0); White Blood Count 10.3 K/mm3 (4.0-10.5)
[2016-09-10 09:57] LABS: BUN/Creatinine Ratio 7.1 (9.0-21.6); Calcium * 9.1 mg/dL (7.9-10.9); Estimated Creat Clear 15.7; Potassium 4.5 mmol/L (3.4-4.6)
[2016-09-10 10:08] LABS: Anion Gap 19.2 mmol/L (6.8-13.8); Carbon Dioxide 19.3 mmol/L (24-32.6)
--- NOTE | 2016-09-10 10:59 | PN ---
Dictated Progress Note - Date and Time Seen: Date: 09/10/16 Time: 10:56 - Progress Note Narrative: Vital Signs - Last Taken Temp 37.8 C H 09/10/16 10:27 Pulse 127 H 09/10/16 10:27 Resp 20 09/10/16 10:27 BP 160/90 09/10/16 10:27 Pulse Ox 90 09/10/16 10:27 Abnormal/Pending Laboratory Last 24 HRS 09/10/16 09/10/16 09:40 09:40 MPV 10.0 H Immature Gran # (Auto) 0.04 H Neutrophils % 76.4 H Lymphocytes % 15.0 L Neutrophils # 7.9 H Carbon Dioxide 19.3 L Anion Gap 19.2 H BUN 26 H D Creatinine 3.68 H D Est GFR (Non-Af Amer) 14 L D BUN/Creatinine Ratio 7.1 L Her Lactic Acid and WBC have returned to normal but BUN and creat are increased. The majority of gas is in the colon on abdominal xray but no flattus or BM. She however still c/o pain "like when I had to go to [facility]" and is tachycardic with elevated temp. I was just informed that she had not urinated since admission. She is obviously uncomfortable. Tensely distended, but not rigid. Tympanic to percussion with percussion tenderness but not true involuntary guarding/ rigidity. Cannot urinate and bladder scan shows 260ml. PROCEDURE: 14fr rice placed with just over 200ml clear urine with some sediment. +/- change in discomfort. IMPRESSION: She does not appear to have a small bowel obstruction, however I am concerned with her worsening renal function and tachycardia/increased temp. Cannot obtain IV contrast CT with current IV access and BUN/creat. Non-contrast CT may not provide sufficient information for decision. If a central line is needed, she would potentially benefit from a buried infusion port. Urology consultation is not currently available here. RECOMMEND: Given her prior history, transfer to higher level of care would be appropriate for coordination of care between specialy services not available here. Discussed with Dr Mcdermott.
--- NOTE | 2016-09-10 11:36 | CONS ---
HPI - General Date of Service: 09/09/16 - examined in ER approx 0815 Narrative: Actually I was called about inserting a subclavian catheter for a CT to investigate possible small bowel obstruction because no peripheral IV sites could be established. Source: patient, RN/MD, RN notes reviewed, old records Exam Limitations: no limitations - History of Present Illness Timing/Duration: 4-6 hours Severity: severe Modifying Factors - (Worsens): Reports: movement Modifying Factors - (Improves): Reports: immobilization Associated Symptoms: loss of appetite, nausea, vomiting, weakness Allergies/Adverse Reactions: Allergies levofloxacin [From Levaquin] Allergy (Verified 09/09/16 10:20) Hives pseudoephedrine HCl [From Sudafed] Adverse Reaction (Mild, Verified 09/09/16 10: 20) NEVER SLEEP Sulfa (Sulfonamide Antibiotics) Adverse Reaction (Mild, Verified 09/09/16 10:20) "GO ON A HIGH" Home Medications: Home Medications Medication Instructions Recorded Last Taken Acetaminophen [Tylenol] 1,000 mg PO Q6H PRN 04/28/16 Unknown Albuterol Sulfate [Ventolin Hfa] 1 - 2 puff IH Q4H PRN 04/28/16 Unknown Atorvastatin Calcium [Lipitor] 10 mg PO HS 04/28/16 04/27/16 Ferrous Sulfate [Iron] 650 mg PO DAILY 04/28/16 Unknown Cholecalciferol (Vitamin D3) 2,000 unit PO DAILY 09/09/16 Unknown [Vitamin D] Miconazole Nitrate [Desenex] 1 appl TP PRN PRN 09/09/16 Unknown Ondansetron HCl [Zofran] 4 mg PO QID PRN 09/09/16 Unknown - Patient's Past Medical History Patient History - Medical: Osteoporosis, Renal Failure, UTI'S, Other Patient History - Cardiac/Respiratory: Hyperlipidemia, Other Patient History - Cancer: Bladder, Cervical, Radiation Therapy Patient History - Surgical Procedures: Back Surgery, Colonoscopy, Hysterectomy, Other - She had robotic assisted bladder resection and then had subsequent exploration/repair of bladder perforation this Spring, Urology Patient History - Other: None - Family History Mother Family History - Medical: , Arthritis, Kidney stone Family History - Cardiac/Respiratory: Hypertension, Hyperlipidemia Family History - Cancer: History Unknown Father Family History - Medical: , Arthritis, Diabetes Type 1 Family History - Cardiac/Respiratory: No pertinent hx, CVA/Stroke, Hypertension , Hyperlipidemia Family History - Cancer: Prostate - Social History Living Situations: home Abuse History: No History of abuse Psych History: No pertinent hx Smoking Status: Never smoker Have you smoked in the past 12 months: No Do you dip or chew tobacco: No Patient requests Smoking Cessation Consult: No Initiate information on Smoking Cessation: No Alcohol Use: none Drug Use: none - Immunizations Immunizations Up to Date: Yes Hx Pneumococcal Vaccination: No History of Influenza Vaccine: No Procedures CLOSED ENDOSCOPIC BIOPSY OF LARGE INTESTINE (04/16/13) DRAINAGE OF PERITONEAL CAVITY, PERCUTANEOUS APPROACH (05/27/15) ENDOSCOPIC BIOPSY OF RECTUM (04/16/13) INSERTION OF ENDOTRACHEAL AIRWAY INTO TRACHEA, VIA OPENING (04/17/16) RESPIRATORY VENTILATION, LESS THAN 24 CONSECUTIVE HOURS (04/17/16) TU DESTRUC BLADD LES NEC (06/04/13) Medications - Medications Current Medications: Current Medications Sodium Chloride (Sodium Chloride 0.9%) 1,000 mls @ 126 mls/hr IV .Q7H57M PRN PRN Reason: HYDRATION Stop: 10/09/16 08:57 Last Admin: 09/10/16 01:42 Dose: 126 mls/hr Pantoprazole Sodium 40 mg/ (Sodium Chloride) 100 mls @ 400 mls/hr IV Q24H RAJWINDER Stop: 10/09/16 12:01 Last Infusion: 09/09/16 14:00 Dose: Infused Morphine Sulfate (Morphine Sulfate) 2 mg IV Q2H PRN PRN Reason: Severe Pain Stop: 10/09/16 11:08 Last Admin: 09/10/16 09:48 Dose: 2 mg Ondansetron HCl (Zofran) 4 mg IV Q6H PRN PRN Reason: Nausea And Vomiting Stop: 10/09/16 11:05 Last Admin: 09/10/16 06:30 Dose: 4 mg Review of Systems - Review of Systems Generalized/Overall Review: Present: Weakness EENTM: Present: No Symptoms Reported Respiratory: Present: No Symptoms Reported Cardiac: Present: No Symptoms Reported Abdominal: Present: Other - She has to take Senna for her bowels and has a difficult time due to loose/hard. She was having trouble yesterday so she took some Miralax, but vomitied that back up. Nauseated. Genitourinary: Present: Other - She is able to void on her own, goes frequently and good amounts by her history Musculoskeletal: Present: Other - Unsteady and uses walker Neurological: Present: No Symptoms Reported Skin: Present: Dryness Physical Examination - Exam Vital Signs: Vital Signs - Last Taken Temp 36.5 09/09/16 05:35 Pulse 111 09/09/16 07:37 Resp 16 09/09/16 07:37 BP 139/97 09/09/16 07:37 Pulse Ox 96 09/09/16 07:37 O2 Oxygen Delivery Method Room Air Constitutional: Present: Alert, Oriented x3, Cooperative, Moderate distress, Looks Older than stated age ENT Exam: Present: dry mucous membranes Eye Exam: bilateral eye: normal inspection Neck: Present: full range of motion, normal inspection Respiratory: Present: no respiratory distress Cardiovascular/Chest: Present: regular rate, rhythm Abdomen: Present: other - Distended, healed low midline incision without hernia. Tympanic to percussion and variably tender to percussion but no involuntary guarding or rigidity /Rectal: Present: Exam deferred Extremity: Present: normal range of motion, normal inspection, no pedal edema, no calf tenderness Skin Exam: Present: pallor Neurologic: Present: housekeeping associate II-XII nml as tested, no motor/sensory deficits Appearance: Present: appropriate insight, disheveled Eye contact: Present: cooperative, good eye contact, normal speech, other - very uncomfortable Thoughts: Present: normal thought pattern - Results and Findings: Lab/Microbiology results last 24 hrs: Abnormal/Pending Laboratory Last 24 HRS 09/10/16 09/10/16 09:40 09:40 MPV 10.0 H Immature Gran # (Auto) 0.04 H Neutrophils % 76.4 H Lymphocytes % 15.0 L Neutrophils # 7.9 H Carbon Dioxide 19.3 L Anion Gap 19.2 H BUN 26 H D Creatinine 3.68 H D Est GFR (Non-Af Amer) 14 L D BUN/Creatinine Ratio 7.1 L - Assessments/Findings (1) Abdominal pain Diagnosis(s): A limited abdominal xray does not show high grade obstruction so this could be managed with NPO status, however her abdominal pain and tenderness are concerning given her previous history of radiation with potential for bowel injury and her known bladder problems--and there was fluid seen on her CT of 08/14. If she does require operation, or have obstruction, I would not perform that here. She could be placed in observation, hydrated, and given antibiotics with her current IV. She would be a candidate for a buried infusion port IF central access is needed. I will see if we have one in stock. If she does not progress, strong consideration should be given to transfer. Problem: Acute
[2016-09-10 11:52] LABS: Urine Appearance Clear; Urine Bilirubin Negative (NEGATIVE); Urine Color Yellow; Urine Ketone 50 mg/dL (NEGATIVE)
[2016-09-10 11:53] LABS: Urine Bacteria None Seen; Urine Blood 25 /ul (NEGATIVE); Urine Nitrite Negative (NEGATIVE); Urine Protein Negative (NEGATIVE); Urine RBC 0-5 /hpf (0-5); Urine Urobilinogen Normal (NORMAL); Urine WBC 0-5 /hpf (0-5); Urine pH 5.5 pH (5.0-7.0)
[2016-09-10] MEDS: PANTOPRAZOLE SODIUM 40 MG in NORMAL SALINE 100 ML IV SCH (12:13)
--- NOTE | 2016-09-10 12:46 | DS ---
Transfer Discharge Summary - Diagnosis(s)/Problems (1) Perforation of bladder Narrative: h/o CTX and RTX of cervical cancer with h/o radiation colits and likely cystitis Problem: Acute (2) Acute renal failure (ARF) Problem: Acute (3) Abdominal pain Narrative: due to perforated bladder with Ascites. will transfer to [facility]-acute abdomen. IV Zosyn Started, Problem: Acute (4) Hyperlipidemia Problem: Chronic (5) Radiation enteritis Problem: Chronic (6) Cervical cancer Problem: Acute - Course Description of Stay: Darlene Campbell, is a 56-year-old white female, patient of Dr. Guerin, with previous medical history of bladder cancer status post chemotherapy and radiotherapy, bladder perforation status post repair x 2 , small bowel obstruction, radiation colitis, who was admitted on 09/09/2016 because of severe abdominal pain. The patient woke up on the morning of admission around 2 AM with severe sharp lower abdominal pain, which she rated as 10 over 10. She said that she took MiraLAX with it and she vomited everything out again. Her last BM was the day before. She then went or emergency room where abdominal x-ray showed nonspecific gas bowel pattern. The emergency room consulted Dr. Celia russ who felt that patient could be having partial small bowel obstruction and recommended admission for bowel rest and IV fluids. The patient was started on IVF and kept NPO. The patient says that she went to the ED on 08/14/16 for constipation and CTS done at that time scattered ascites less than the large hemoperitoneum seen in April,. She was told that everything was fine and was sent home. Today the patient said that she has had no urine output since admission and her abdominal pain was not better. Her bladder scan was 260 ml. Her WBC was back to normal but her Cr jumped to 3.8. She says that this feels the same when she had ruptured her bladder the last April. ZOEY was done and it showed no hydronephrosis . It did show abdominal and pelvic ascites with a possible defect on the anterior wall of bladder. I was able to talk to Dr. Simpson , triage doctor and Dr. Thrasher , Urology at [facility] and they are accepting the patient . Procedures Performed: none - Results and Findings Results and Findings: Laboratory Results - last 24 hr 09/09/16 09/10/16 09/10/16 15:00 09:40 09:40 WBC 10.3 RBC 5.14 Hgb 15.1 Hct 45.2 MCV 87.9 MCH 29.4 MCHC 33.4 RDW 12.9 Plt Count 193 MPV 10.0 H Immature Gran % (Auto) 0.40 Immature Gran # (Auto) 0.04 H Neutrophils % 76.4 H Lymphocytes % 15.0 L Monocytes % 8.1 Eosinophils % 0.0 Basophils % 0.1 Nucleated RBC % 0.0 Neutrophils # 7.9 H Lymphocytes # 1.6 Monocytes # 0.8 Eosinophils # 0.0 Absolute Basophils 0.0 Sodium 140 Plasma Sodium 140 Potassium 4.5 Chloride 106 Carbon Dioxide 19.3 L Anion Gap 19.2 H BUN 26 H D Creatinine 3.68 H D Est GFR (Non-Af Amer) 14 L D BUN/Creatinine Ratio 7.1 L Random Glucose 110 Lactic Acid, Venous 1.9 Calcium 9.1 Urine Color Urine Appearance Urine pH Ur Specific [place] Urine Protein Urine Glucose (UA) Urine Ketones Urine Blood Urine Nitrate Urine Bilirubin Urine Urobilinogen Ur Leukocyte Esterase Urine RBC Urine WBC Ur Epithelial Cells Urine Bacteria Urine Culture Comments 09/10/16 11:27 WBC RBC Hgb Hct MCV MCH MCHC RDW Plt Count MPV Immature Gran % (Auto) Immature Gran # (Auto) Neutrophils % Lymphocytes % Monocytes % Eosinophils % Basophils % Nucleated RBC % Neutrophils # Lymphocytes # Monocytes # Eosinophils # Absolute Basophils Sodium Plasma Sodium Potassium Chloride Carbon Dioxide Anion Gap BUN Creatinine Est GFR (Non-Af Amer) BUN/Creatinine Ratio Random Glucose Lactic Acid, Venous Calcium Urine Color Yellow Urine Appearance Clear Urine pH 5.5 Ur Specific [place] 1.030 Urine Protein Negative Urine Glucose (UA) Negative Urine Ketones 50 Urine Blood 25 H Urine Nitrate Negative Urine Bilirubin Negative Urine Urobilinogen Normal Ur Leukocyte Esterase Negative Urine RBC 0-5 Urine WBC 0-5 Ur Epithelial Cells None seen Urine Bacteria None seen Urine Culture Comments No culture indicated - Medications Medications: Active Medications Sodium Chloride (Sodium Chloride 0.9%) 1,000 mls @ 126 mls/hr IV .Q7H57M PRN PRN Reason: HYDRATION Stop: 10/09/16 08:57 Last Admin: 09/10/16 01:42 Dose: 126 mls/hr Pantoprazole Sodium 40 mg/ (Sodium Chloride) 100 mls @ 400 mls/hr IV Q24H RAJWINDER Stop: 10/09/16 12:01 Last Admin: 09/10/16 12:13 Dose: 400 mls/hr Morphine Sulfate (Morphine Sulfate) 2 mg IV Q2H PRN PRN Reason: Severe Pain Stop: 10/09/16 11:08 Last Admin: 09/10/16 09:48 Dose: 2 mg Ondansetron HCl (Zofran) 4 mg IV Q6H PRN PRN Reason: Nausea And Vomiting Stop: 10/09/16 11:05 Last Admin: 09/10/16 06:30 Dose: 4 mg Discontinued Medications Bisacodyl (Dulcolax Suppository) 10 mg RC ONCE ONE Stop: 09/10/16 08:45 Last Admin: 09/10/16 09:49 Dose: 10 mg Bisacodyl (Dulcolax) 10 mg PO ONCE ONE Stop: 09/10/16 08:45 Last Admin: 09/10/16 09:49 Dose: 10 mg Morphine Sulfate (Morphine Sulfate) 10 mg IM ONCE ONE Stop: 09/09/16 04:45 Last Admin: 09/09/16 05:28 Dose: 5 mg Morphine Sulfate (Morphine Sulfate) 4 mg IV ONCE ONE Stop: 09/09/16 08:58 Last Admin: 09/09/16 09:00 Dose: 4 mg Ondansetron HCl (Zofran) 4 mg IV ONCE ONE Stop: 09/09/16 03:49 Last Admin: 09/09/16 05:22 Dose: 4 mg Ondansetron HCl (Zofran) 4 mg IV ONCE ONE Stop: 09/09/16 07:52 Last Admin: 09/09/16 07:52 Dose: 4 mg - Disposition Disposition: [facility] Condition: Critical Discharge Date: 09/10/16
[2016-09-10] MEDS ORDERED: PIPERACILLIN SODIUM/TAZOBACTAM 3.375 GM in DEXTROSE 5 % IN WATER 100 ML IV SCH ×2 (13:00)
[2016-09-10 13:16] VITALS: BP 152/90
== END 2016-09-10 13:40 | disposition short-term general hospital (02) | DRG 699 ==
LOC: ER 03:39 → MS 08:43 → OBSVTOIN 11:04
PROVIDERS: ADMIT Internal Medicine; ATTEND Internal Medicine
DX: N32.89 Other specified disorders of bladder (principal); K56.60 Unspecified intestinal obstruction; N17.9 Acute kidney failure, unspecified; K52.1 Toxic gastroenteritis and colitis; E78.5 Hyperlipidemia, unspecified; Z85.41 Personal history of malignant neoplasm of cervix uteri; Z85.51 Personal history of malignant neoplasm of bladder; Z92.21 Personal history of antineoplastic chemotherapy
CPT/HCPCS: 36415; 36600; 74000; 74020; 76775; 80048; 80053; 81001; 82150; 82803; 83605; 83690; 85025; 87040; 87086; 93005; 96372; 96374; 96375; 99284; J2405

== ENCOUNTER 2016-10-04 12:20 | Emergency (ER) | payer MEDICARE, MEDICAID ==
[2016-10-04] MEDS ORDERED: NORMAL SALINE 1,000 ML IV ONE (12:48)
[2016-10-04] MEDS ORDERED: MORPHINE SULFATE 4 MG/ML SYRG IV ONE ×3 (12:48→16:27)
[2016-10-04] MEDS ORDERED: ONDANSETRON HCL/PF 2 MG/ML VIAL IV ONE ×2 (12:48→15:01)
[2016-10-04] MEDS ORDERED: MORPHINE SULFATE 4 MG/ML SYRG ONE ×2 (12:51→16:31)
[2016-10-04] MEDS ORDERED: ONDANSETRON HCL/PF 2 MG/ML VIAL ONE ×2 (12:52→15:13)
[2016-10-04 14:09] LABS: Hematocrit 42.2 % (37.0-47.0); Hemoglobin 14.3 gm/dL (12.5-16.0); Mean Cell Volume 86.8 fl (78-100); Mean Corpuscular Hemoglobin 29.4 pg (27-31); Mean Corpuscular Hgb Conc 33.9 g/dl (32-36); Mean Platelet Volume 9.9 fl (6.0-9.5); Neutrophil # 6.3 K/mm3 (1.3-6.0); Platelet Count 222 K/mm3 (150-450); Red Blood Count 4.86 M/mm3 (4.2-5.4); Red Cell Distribution Width 13.3 % (11.5-14.0); White Blood Count 9.1 K/mm3 (4.0-10.5)
[2016-10-04] MEDS ORDERED: PROMETHAZINE HCL 25 MG/ML AMPUL IM ONE (14:09)
[2016-10-04] MEDS ORDERED: MORPHINE SULFATE 4 MG/ML SYRG IM ONE (14:09)
[2016-10-04] MEDS ORDERED: PROMETHAZINE HCL 25 MG/ML AMPUL ONE (14:16)
[2016-10-04 14:23] LABS: ALT 24 U/L (19-67); AST 14 U/L (0-48); Albumin * 4.4 gm/dl (3.4-5.0); Alkaline Phosphatase * 75 U/L (50-170); Anion Gap 18.4 mmol/L (6.8-13.8); BUN/Creatinine Ratio 7.2 (9.0-21.6); Bilirubin, Total 0.6 mg/dL (0.0-1.1); Blood Urea Nitrogen 12 mg/dL (3-23); Ca. Corrected For Albumin 9.4 mg/dL (8.4-10.2); Carbon Dioxide 21.8 mmol/L (24-32.6); Chloride 103 mmol/L (97-106); Glucose * 107 mg/dL (70-110); Potassium 4.2 mmol/L (3.4-4.6); Sodium 139 mmol/L (132-142); Total Protein 7.8 gm/dL (6.2-8.2)
--- NOTE | 2016-10-04 14:54 | ERNOTE ---
Abdominal HPI - Narrative Date of Service: 10/04/16 - General Chief Complaint: Abdominal Pain Time Seen by Provider: 10/04/16 12:43 Source: patient, RN notes reviewed, past records Exam Limitations: no limitations - Immun/Allergies/Home Medications Immunizatons: IMMUNIZATION HX Immunizations Up to Date Yes History of Influenza Vaccine No Hx Pneumococcal Vaccination No Allergies/Adverse Reactions: Allergies levofloxacin [From Levaquin] Allergy (Verified 10/04/16 12:40) Hives pseudoephedrine HCl [From Sudafed] Adverse Reaction (Mild, Verified 10/04/16 12: 40) NEVER SLEEP Sulfa (Sulfonamide Antibiotics) Adverse Reaction (Mild, Verified 10/04/16 12:40) "GO ON A HIGH" Home Medications: HOME MEDICATIONS Acetaminophen [Tylenol] 1,000 mg PO Q6H PRN 04/28/16 [Last Taken Unknown] Albuterol Sulfate [Ventolin Hfa] 1 - 2 puff IH Q4H PRN 04/28/16 [Last Taken Unknown] Atorvastatin Calcium [Lipitor] 10 mg PO HS 04/28/16 [Last Taken 04/27/16] Ferrous Sulfate [Iron] 650 mg PO DAILY 04/28/16 [Last Taken Unknown] Sennosides/Docusate Sodium [Senokot-S] 2 tab PO HS tablet 05/04/16 [Last Taken Unknown] Cholecalciferol (Vitamin D3) [Vitamin D] 2,000 unit PO DAILY 09/09/16 [Last Taken Unknown] Ondansetron HCl [Zofran] 4 mg PO QID PRN 09/09/16 [Last Taken Unknown] - Pain Score Pain Score #1 Pain Score: 10 Abdominal Pain Onset Location: RLQ, LLQ, suprapubic Pain Radiation: no radiation - History of Present Illness Narrative: 56 y/o female ambulatory to the ED for lower abdominal pain that began early this morning. She was recently hospitalized for a bowel obstruction. She took a laxative and stool softener this morning. This seemed to help for a time. She also reports having difficulty urinating despite drinking a large amount of liquids. She states the last time she was able to urinate was yesterday morning. Date (Duration): 10/04/16 Time (Timing): 05:30 Timing: getting worse Quality: severe, aching Activities at Onset: none Prior Abdominal Problems: Present: similar symptoms Prior Treatment: Present: recently seen, treated by physician, recently hospitalized. Absent: currently on antibiotics Review of Systems - Review of Systems Constitutional: Present: recent illness. Absent: fever, chills EYE: Present: no symptoms reported ENT: Present: no symptoms reported Respiratory: Absent: shortness of breath, cough Cardiology: Absent: no symptoms reported, chest pain, palpitations, syncope Gastrointestinal/Abdominal: Present: abdominal pain, eating less. Absent: nausea, vomiting, diarrhea, constipation, drinking less Genitourinary: Present: dysuria. Absent: frequency, hematuria Musculoskeletal: Absent: back pain, neck pain Skin: Absent: rash, lesions, lumps Neurological: Absent: headache, dizziness/light-headedness Endocrine: Present: no symptoms reported Hematologic/Lymphatic: Absent: easy bruising, easy bleeding Psych: Present: no symptoms reported - Patient's Past Medical History Patient History - Medical: Osteoporosis, Renal Failure, UTI'S, Other Patient History - Cardiac/Respiratory: Hyperlipidemia, Other Patient History - Cancer: Bladder, Cervical, Radiation Therapy Patient History - Surgical Procedures: Back Surgery, Colonoscopy, Hysterectomy, Other, Urology Patient History - Other: None LMP (females 10-50): Menopausal - Family History Mother Family History - Medical: , Arthritis, Kidney stone Family History - Cardiac/Respiratory: Hypertension, Hyperlipidemia Family History - Cancer: History Unknown Father Family History - Medical: , Arthritis, Diabetes Type 1 Family History - Cardiac/Respiratory: No pertinent hx, CVA/Stroke, Hypertension , Hyperlipidemia Family History - Cancer: Prostate - Social History Living Situations: alone Abuse History: No History of abuse Psych History: No pertinent hx Alcohol Use: none Drug Use: none - Immunizations Immunizations Up to Date: Yes Hx Pneumococcal Vaccination: No History of Influenza Vaccine: No Physical Exam - Physical Exam General Appearance: Present: wd/wn, alert, mild distress Neck: Present: normal inspection, nontender, supple Respiratory: Present: no respiratory distress, normal breath sounds, no accessory muscle use, lungs clear Cardiovascular/Chest: Present: regular rate, rhythm, no murmur Gastrointestinal/Abdominal: Present: normal bowel sounds, nondistended, soft, tenderness - throughout lower abdomen, guarding Back Exam: Present: normal inspection, no CVA tenderness Extremity Exam: Present: normal inspection, no edema Neurological Exam: Present: alert, oriented, normal mood/affect, no motor/ sensory deficits Skin Exam: Present: normal color, warm/dry ED Progress - Results and Orders Patient's Lab Results:: I have reviewed the patient's lab results. - Vital Signs Patient's Vital Signs:: I have reviewed the patient's vital signs. Vital Signs: Vital Signs 10/04/16 10/04/16 10/04/16 12:32 12:47 13:03 Temperature 36.4 C L 36.4 C L Pulse Rate 108 H 108 H 98 Respiratory 14 14 Rate Blood Pressure 128/88 128/88 130/91 O2 Sat by Pulse 95 95 95 Oximetry 10/04/16 10/04/16 10/04/16 13:26 13:40 14:08 Temperature Pulse Rate 87 81 92 Respiratory 14 14 12 Rate Blood Pressure 127/78 130/83 124/78 O2 Sat by Pulse 95 94 94 Oximetry 10/04/16 14:47 Temperature Pulse Rate 99 Respiratory Rate Blood Pressure 157/118 O2 Sat by Pulse 98 Oximetry - X-Ray X-Ray #1 X-Ray: abdomen Interpretation: Reviewed by me X-ray Comments: Abdomen Flat W/ Upright *: No subdiaphragmatic free air. No abnormal dilation of large or small bowel. Upright view demonstrates air-fluid levels within nondilated but there are distended small and large bowel segments, centered predominantly in the right lower quadrant. No definite pathologic calcifications apparent. Patient has multiple costochondral calcifications projecting over the upper abdomen bilaterally. Osseous structures are intact. Degenerative changes of the spine and bilateral hips noted. IMPRESSION: 1. Abnormal but nonspecific bowel gas pattern. Air-fluid levels within small and large bowel segments centered around the right lower quadrant could represent enteritis versus colitis versus localized ileus due to adjacent inflammatory process. 2. No definite signs of mechanical obstruction. Electronically signed by Wu Ramirez M.D.. Wu Ramirez MD - Progress/Reassessment Chief Complaint: Abdominal Pain Progress:: Improved Plan - Plan Plan: Reassured patient regarding lack of acute findings on lab and xrays. Some improvement in pain with Morphine. Patient cries and rocks back and forth on cart as if in extreme discomfort, but then is able to stop and carry on a conversation without any indication of discomfort. Bladder scan shows approx 100 ml urine in bladder despite her reports of not voiding since yesterday. Patient usually has diarrhea everyday but did not today. Milk of magnesia given prior to d/c. Departure - Departure Clinical Impression: Abdominal pain Qualifiers: Abdominal location: unspecified location Qualified Code(s): R10.9 - Unspecified abdominal pain Disposition: Home Follow Up Needed Condition: Stable Instructions: Abdominal Pain, Adult, [id number] Additional Instructions: Clear liquids this evening Continue your routine medications Return to ER if symptoms worsen, otherwise see your doctor as scheduled on Sunday Referrals: Anais Guerin DO [Primary Care Provider] -
[2016-10-04 16:24] LABS: Urine Bilirubin Negative (NEGATIVE); Urine Blood 25 /ul (NEGATIVE); Urine Ketone Negative (NEGATIVE); Urine Nitrite Negative (NEGATIVE); Urine Protein Negative (NEGATIVE); Urine Specific Gravity <=1.005 SP.GR. (1.005-1.010); Urine Urobilinogen Normal (NORMAL)
[2016-10-04 16:37] LABS: Urine Appearance Clear; Urine Bacteria None Seen; Urine Color Yellow; Urine RBC None Seen /hpf (0-5); Urine WBC None Seen /hpf (0-5)
[2016-10-04] MEDS ORDERED: MAGNESIUM HYDROXIDE 30 ML UDC PO ONE (17:18)
[2016-10-04] MEDS ORDERED: MAGNESIUM HYDROXIDE 30 ML UDC ONE (17:49)
[2016-10-04 22:17] VITALS: BP 137/75
== END 2016-10-04 17:27 | disposition home or self-care (01) ==
LOC: ER 12:20
DX: R10.9 Unspecified abdominal pain (principal); M81.0 Age-related osteoporosis without current pathological fracture; E78.5 Hyperlipidemia, unspecified; Z87.440 Personal history of urinary (tract) infections; Z85.51 Personal history of malignant neoplasm of bladder; Z85.41 Personal history of malignant neoplasm of cervix uteri
CPT/HCPCS: 36415; 51701; 74020; 80053; 81001; 85025; 85652; 86140; 96374; 96375; 99284; J2405

== ENCOUNTER 2016-10-05 07:12 | Emergency (ER) | payer MEDICARE, MEDICAID ==
[2016-10-05] MEDS ORDERED: ONDANSETRON HCL/PF 2 MG/ML VIAL IV ONE ×2 (07:36→10:58)
[2016-10-05] MEDS ORDERED: ONDANSETRON HCL/PF 2 MG/ML VIAL ONE ×2 (07:37→10:57)
--- NOTE | 2016-10-05 07:43 | ERNOTE ---
<Speedy Linder - Last Filed: 10/05/16 08:01> ER Female HPI Stated Complaint: BACK PAIN Presenting Symptoms: other Time Seen by Provider: 10/05/16 07:32 Source: patient Exam Limitations: no limitations Immunizations: IMMUNIZATION HX Immunizations Up to Date Yes History of Influenza Vaccine No Hx Pneumococcal Vaccination No Allergies/Adverse Reactions: Allergies levofloxacin [From Levaquin] Allergy (Verified 10/05/16 07:22) Hives pseudoephedrine HCl [From Sudafed] Adverse Reaction (Mild, Verified 10/05/16 07: 22) NEVER SLEEP Sulfa (Sulfonamide Antibiotics) Adverse Reaction (Mild, Verified 10/05/16 07:22) "GO ON A HIGH" Home Medications: HOME MEDICATIONS Acetaminophen [Tylenol] 1,000 mg PO Q6H PRN 04/28/16 [Last Taken Unknown] Albuterol Sulfate [Ventolin Hfa] 1 - 2 puff IH Q4H PRN 04/28/16 [Last Taken Unknown] Atorvastatin Calcium [Lipitor] 10 mg PO HS 04/28/16 [Last Taken 04/27/16] Ferrous Sulfate [Iron] 650 mg PO DAILY 04/28/16 [Last Taken Unknown] Sennosides/Docusate Sodium [Senokot-S] 2 tab PO HS tablet 05/04/16 [Last Taken Unknown] Cholecalciferol (Vitamin D3) [Vitamin D] 2,000 unit PO DAILY 09/09/16 [Last Taken Unknown] Ondansetron HCl [Zofran] 4 mg PO QID PRN 09/09/16 [Last Taken Unknown] - History of Present Illness Narrative: Pt has been having difficulty urinating. was seen in this ED yesterday and mini cath was done for UCS and IV fluids given. Pt states she has not urinated since that catheterization and has not urinated on her own since Sunday. Timing: Present: getting worse Quality: Present: moderate, severe Onset Location: Present: suprapubic Radiation: Present: none Activities at Onset: Present: none Prior Abdominal Problems: Present: similar symptoms - yesterday Prior Treatment: Present: recently seen - Was in this ED yesterday Review of Systems - Review of Systems Constitutional: Absent: recent illness, fever, chills EYE: Present: no symptoms reported ENT: Present: no symptoms reported Respiratory: Present: no symptoms reported Cardiology: Present: no symptoms reported Gastrointestinal/Abdominal: Present: nausea, vomiting, constipation Genitourinary: Present: See HPI Skin: Present: no symptoms reported Neurological: Present: no symptoms reported Endocrine: Present: no symptoms reported Hematologic/Lymphatic: Present: no symptoms reported Psych: Present: no symptoms reported - Patient's Past Medical History Patient History - Medical: Osteoporosis, Renal Failure, UTI'S, Other Patient History - Cardiac/Respiratory: Hyperlipidemia, Other Patient History - Cancer: Bladder, Cervical, Radiation Therapy Patient History - Surgical Procedures: Back Surgery, Colonoscopy, Hysterectomy, Other, Urology Patient History - Other: None LMP (females 10-50): unknown - Family History Mother Family History - Medical: , Arthritis, Kidney stone Family History - Cardiac/Respiratory: Hypertension, Hyperlipidemia Family History - Cancer: History Unknown Father Family History - Medical: , Arthritis, Diabetes Type 1 Family History - Cardiac/Respiratory: No pertinent hx, CVA/Stroke, Hypertension , Hyperlipidemia Family History - Cancer: Prostate - Social History Living Situations: alone Abuse History: No History of abuse Psych History: No pertinent hx Smoking Status: Never smoker Have you smoked in the past 12 months: No Do you dip or chew tobacco: No Alcohol Use: none Drug Use: none - Immunizations Immunizations Up to Date: Yes Hx Pneumococcal Vaccination: No History of Influenza Vaccine: No Physical Exam - Physical Exam General Appearance: Present: wd/wn, alert, moderate distress Head Exam: Present: normal inspection, no evidence of injury Eye Exam: Normal inspection: bilateral Neck: Present: normal inspection, nontender Respiratory: Present: no respiratory distress, no accessory muscle use Gastrointestinal/Abdominal: Present: tenderness - suprapubic, distended - suprapubic. Absent: guarding, rebound Back Exam: Present: normal inspection, normal range of motion, no vertebral tenderness Extremity Exam: Present: normal inspection, normal range of motion, no edema Neurological Exam: Present: alert, oriented, no motor/sensory deficits Skin Exam: Present: normal color, warm/dry Lymphatic Exam: Present: no adenopathy ED Progress - Vital Signs Vital Signs: Vital Signs 10/05/16 07:14 Temperature 37.0 C Pulse Rate 125 H Respiratory 23 H Rate O2 Sat by Pulse 93 Oximetry - Progress/Reassessment Chief Complaint: Genitourinary Problem - Transfer of Care Physician Sign Out: Speedy Linder Receiving Physician: Marcel Alcantara Pending Results: CT/MRI results, Labs, X-ray results Expected Disposition: Transfer Departure Clinical Impression: Abdominal pain, Small bowel obstruction - Departure Disposition: [facility] Condition: Fair <Marcel Alcantara - Last Filed: 10/05/16 10:26> ER Female HPI Immunizations: IMMUNIZATION HX Immunizations Up to Date Yes History of Influenza Vaccine No Hx Pneumococcal Vaccination No ED Progress - Results and Orders Patient's Lab Results:: I have reviewed the patient's lab results. - Vital Signs Patient's Vital Signs:: I have reviewed the patient's vital signs. Vital Signs: Vital Signs 10/05/16 10/05/16 10/05/16 07:14 07:54 08:22 Temperature 37.0 C Pulse Rate 125 H 104 H 99 Respiratory 23 H 22 H 22 H Rate Blood Pressure 136/65 129/83 O2 Sat by Pulse 93 96 98 Oximetry 10/05/16 10/05/16 08:51 10:05 Temperature Pulse Rate 98 101 H Respiratory 21 H 19 Rate Blood Pressure 128/76 122/71 O2 Sat by Pulse 96 95 Oximetry - CT/Ultrasound CT/Ultrasound Narrative: I reviewed CT report - Progress/Reassessment Progress Note-Subjective: 10/05/16 10:25 D/W Hospitalist (Ashwini Conrad), Hospitalist recommends transfer given her extensive past medical and surgical history. Pt agreeable to this. IV BAx given. Please see Dr Linder's note for full H&P.
[2016-10-05] MEDS ORDERED: DIATRIZOATE MEGLUMINE, SODIUM 30 ML BTL PO ONE (08:28)
[2016-10-05] MEDS ORDERED: DIATRIZOATE MEGLUMINE, SODIUM 30 ML BTL ONE (08:28)
[2016-10-05 08:30] LABS: Hematocrit 39.8 % (37.0-47.0); Hemoglobin 13.7 gm/dL (12.5-16.0); Mean Cell Volume 87.5 fl (78-100); Mean Corpuscular Hemoglobin 30.1 pg (27-31); Mean Corpuscular Hgb Conc 34.4 g/dl (32-36); Mean Platelet Volume 10.2 fl (6.0-9.5); Neutrophil # 7.1 K/mm3 (1.3-6.0); Neutrophil % 79.2 % (42-75.0); Platelet Count 190 K/mm3 (150-450); Red Blood Count 4.55 M/mm3 (4.2-5.4); Red Cell Distribution Width 13.5 % (11.5-14.0); White Blood Count 8.9 K/mm3 (4.0-10.5)
[2016-10-05 08:33] LABS: Urine Bilirubin 1 mg/dl (NEGATIVE); Urine Blood 25 /ul (NEGATIVE); Urine Ketone 50 mg/dL (NEGATIVE); Urine Nitrite Negative (NEGATIVE); Urine Protein 30 mg/dL (NEGATIVE); Urine Specific Gravity >=1.030 SP.GR. (1.005-1.010); Urine Urobilinogen Normal (NORMAL); Urine pH 5.5 pH (5.0-7.0)
[2016-10-05 08:42] LABS: Urine Appearance Clear; Urine Bacteria None Seen; Urine Color Yellow; Urine RBC TRACE /hpf (0-5); Urine WBC None Seen /hpf (0-5)
[2016-10-05 08:46] LABS: Albumin * 3.7 gm/dl (3.4-5.0); Anion Gap 17.3 mmol/L (6.8-13.8); BUN/Creatinine Ratio 6.7 (9.0-21.6); Bilirubin, Total 0.8 mg/dL (0.0-1.1); Ca. Corrected For Albumin 9.2 mg/dL (8.4-10.2); Calcium * 9.3 mg/dL (7.9-10.9); Carbon Dioxide 20.8 mmol/L (24-32.6); Potassium 4.1 mmol/L (3.4-4.6); Total Protein 6.8 gm/dL (6.2-8.2)
[2016-10-05] MEDS ORDERED: MORPHINE SULFATE 2 MG/ML DISP.SYRIN IV ONE ×2 (09:59→10:41)
[2016-10-05] MEDS ORDERED: MORPHINE SULFATE 2 MG/ML DISP.SYRIN ONE ×2 (10:00→10:55)
[2016-10-05] MEDS ORDERED: NORMAL SALINE 1,000 ML IV PRN (10:16)
[2016-10-05] MEDS ORDERED: ERTAPENEM SODIUM 1,000 MG in NORMAL SALINE 100 ML IV ONE (11:00)
[2016-10-05 11:14] VITALS: BP 118/64
== END 2016-10-05 11:14 | disposition short-term general hospital (02) ==
LOC: ER 07:12
PROC: 0T9B70Z Drainage of Bladder with Drainage Device, Via Natural or Artificial Opening (ICD-10-PCS; principal; 2016-10-05)
DX: K56.69 Other intestinal obstruction (principal); R10.9 Unspecified abdominal pain; Z87.440 Personal history of urinary (tract) infections; Z85.51 Personal history of malignant neoplasm of bladder; Z85.41 Personal history of malignant neoplasm of cervix uteri; Z92.3 Personal history of irradiation; E78.5 Hyperlipidemia, unspecified
CPT/HCPCS: 36415; 51702; 74176; 74177; 80053; 81001; 82150; 83605; 83690; 85025; 87040; 96365; 96375; 99285; J2405